=== PATIENT | female | born 1955 | race Caucasian/White ===

== ENCOUNTER 2017-11-18 17:39 | Inpatient (IN) | payer OTHER, MEDICAID ==
[~2017-11-18] VITALS: Ht 157.5 cm; Wt 64.9 kg
[2017-11-18 18:20] VITALS: BP 146/83
[2017-11-18 18:36] LABS: BASOPHILS % (AUTO) 0.5 % (0.0-2.0); EOSINOPHILS % (AUTO) 0.1 % (0.0-3.0); HEMATOCRIT 35.6 % (37.0-47.0); HEMOGLOBIN 12.6 G/DL (12.0-16.0); LYMPHOCYTES % (AUTO) 9.9 % (20.0-45.0); MEAN CORPUSCULAR VOLUME 77 FL (80-99); MONOCYTES % (AUTO) 5.2 % (1.0-10.0); NEUTROPHILS % (AUTO) 84.4 % (45.0-75.0); PLATELET COUNT 321 K/UL (150-450); RED BLOOD COUNT 4.62 M/UL (4.20-5.40); RED CELL DISTRIBUTION WIDTH 10.3 % (11.6-14.8); WHITE BLOOD COUNT 17.2 K/UL (4.8-10.8)
[2017-11-18 18:46] LABS: ANION GAP 12 mmol/L (5-15); BLOOD UREA NITROGEN 45 mg/dL (7-18); CARBON DIOXIDE 28 MMOL/L (21-32); CHLORIDE 93 MMOL/L (98-107); CREATININE 2.9 MG/DL (0.55-1.30); POTASSIUM 2.9 MMOL/L (3.5-5.1); SODIUM 133 MMOL/L (136-145)
[2017-11-18 18:50] LABS: ALANINE AMINOTRANSFERASE 21 U/L (12-78); ALBUMIN 4.1 G/DL (3.4-5.0); ALBUMIN/GLOBULIN RATIO 0.9 (1.0-2.7); ALKALINE PHOSPHATASE 249 U/L (46-116); ASPARTATE AMINO TRANSFERASE 28 U/L (15-37); BILIRUBIN,TOTAL 0.7 MG/DL (0.2-1.0)
[2017-11-18 18:52] LABS: CALCIUM 17.5 MG/DL (8.5-10.1)
[2017-11-18] MEDS ORDERED: COQ-1030 M1 PO (19:16)
[2017-11-18] MEDS ORDERED: MAGNESIUM500 MG PO (19:16)
[2017-11-18 19:30] VITALS: BP 178/83
[2017-11-18 20:03] LABS: APPEARANCE,URINE SLIGHTLY CLOUDY; BILIRUBIN, URINE NEGATIVE (NEGATIVE); COLOR,URINE PALE YELLOW; GLUCOSE, URINE (UA) NEGATIVE (NEGATIVE); KETONES,URINE NEGATIVE (NEGATIVE); LEUKOCYTE ESTERASE ,URINE 3+ (NEGATIVE); NITRITE,URINE NEGATIVE (NEGATIVE); PH,URINE 6.5 (4.5-8.0); PROTEIN,URINE 2+ (NEGATIVE); UROBILINOGEN,URINE NORMAL MG/DL (0.0-1.0)
[2017-11-18 20:30] VITALS: BP 151/90
[2017-11-18] MEDS ORDERED: Miralax 17gm pkt ORAL PRN (20:45)
[2017-11-18] MEDS: Heparin 5000 units/ml inj SUBQ SCH (21:00)
[2017-11-18] MEDS: Docusate 100mg cap ORAL SCH (21:00)
--- NOTE | 2017-11-18 21:04 | Emergency Room Report ---
History of Present Illness General Chief Complaint: Vomiting Source: Patient Present Illness HPI This patient was sent in by her primary care physician. She complains of intractable nausea and vomiting for the past 2 days. She states she can't even keep down water. She states that she also had right hip pain that her primary care physician is following her for. She has seen an orthopedist in undergone an MRI. She states that she is also has other pain in different parts of her body that have been ongoing for the past 3 months. She denies chest pain or shortness of breath. She does get intermittent headaches. She has migratory body pains at times. She denies fever or chills. She has no other complaints. Allergies: Coded Allergies: IODINE (Verified Allergy, Unknown, 11/18/17) Patient History Past Medical History: none, see triage record Social History: Denies: smoking, alcohol use, drug use Reviewed Nursing Documentation: PMH: Agreed; PSxH: Agreed Nursing Documentation-PMH Past Medical History: No Stated History Review of Systems All Other Systems: negative except mentioned in HPI Physical Exam Vital Signs Date Time Temp Pulse Resp B/P (MAP) Pulse Ox O2 Delivery O2 Flow Rate FiO2 11/18/17 17:45 98.2 95 18 146/83 95 Room Air 98.2 Sp02 EP Interpretation: reviewed, normal General Appearance: no apparent distress, alert, GCS 15, non-toxic Head: normocephalic, atraumatic Eyes: bilateral eye normal inspection, bilateral eye PERRL ENT: hearing grossly normal, normal pharynx, no angioedema, normal voice Neck: full range of motion, supple/symm/no masses Respiratory: chest non-tender, lungs clear, normal breath sounds, no respiratory distress, no retraction, no accessory muscle use, speaking full sentences Cardiovascular #1: regular rate, rhythm, no edema Gastrointestinal: normal bowel sounds, non tender, soft, non-distended, no guarding, no rebound Rectal: deferred Musculoskeletal: back normal, other - Pain w/ ROM of R.hip, unable to bear weight on R. leg secondary to pain. Neurologic: alert, oriented x3, responsive, motor strength/tone normal, sensory intact, speech normal Psychiatric: judgement/insight normal, memory normal, mood/affect normal, no suicidal/homicidal ideation Skin: normal color, no rash, warm/dry, well hydrated Medical Decision Making Diagnostic Impression: Primary Impression: Hypercalcemia Additional Impressions: Vomiting Renal failure ER Course This patient is found to have significant hypercalcemia. She also has acute renal failure. She has had intractable vomiting for the past couple days. Likely her vomiting is related to her hypercalcemia. She has an elevated magnesium and phosphorus. Unsure of the etiology of these laboratory findings that this would explain the patient's symptoms. Possibly she has hyperparathyroidism. Another consideration is a malignancy. Regardless, this patient will be admitted for further workup, evaluation, monitoring and treatment. Laboratory Tests Test 11/18/17 18:23 11/18/17 19:40 White Blood Count 17.2 K/UL (4.8-10.8) H Red Blood Count 4.62 M/UL (4.20-5.40) Hemoglobin 12.6 G/DL (12.0-16.0) Hematocrit 35.6 % (37.0-47.0) L Mean Corpuscular Volume 77 FL (80-99) L Mean Corpuscular Hemoglobin 27.3 PG (27.0-31.0) Mean Corpuscular Hemoglobin Concent 35.5 G/DL (32.0-36.0) Red Cell Distribution Width 10.3 % (11.6-14.8) L Platelet Count 321 K/UL (150-450) Mean Platelet Volume 6.7 FL (6.5-10.1) Neutrophils (%) (Auto) 84.4 % (45.0-75.0) H Lymphocytes (%) (Auto) 9.9 % (20.0-45.0) L Monocytes (%) (Auto) 5.2 % (1.0-10.0) Eosinophils (%) (Auto) 0.1 % (0.0-3.0) Basophils (%) (Auto) 0.5 % (0.0-2.0) Sodium Level 133 MMOL/L (136-145) L Potassium Level 2.9 MMOL/L (3.5-5.1) L Chloride Level 93 MMOL/L (98-107) L Carbon Dioxide Level 28 MMOL/L (21-32) Anion Gap 12 mmol/L (5-15) Blood Urea Nitrogen 45 mg/dL (7-18) H Creatinine 2.9 MG/DL (0.55-1.30) H Estimate Glomerular Filtration Rate 16.5 mL/min (>60) Glucose Level 108 MG/DL (74-106) H Calcium Level 17.5 MG/DL (8.5-10.1) *H Phosphorus Level 5.6 MG/DL (2.5-4.9) H Magnesium Level 2.6 MG/DL (1.8-2.4) H Total Bilirubin 0.7 MG/DL (0.2-1.0) Aspartate Amino Transferase (AST) 28 U/L (15-37) Alanine Aminotransferase (ALT) 21 U/L (12-78) Alkaline Phosphatase 249 U/L (46-116) H Total Protein 8.9 G/DL (6.4-8.2) H Albumin 4.1 G/DL (3.4-5.0) Globulin 4.8 g/dL Albumin/Globulin Ratio 0.9 (1.0-2.7) L Lipase 220 U/L (73-393) Urine Color Pale yellow Urine Appearance Slightly cloudy Urine pH 6.5 (4.5-8.0) Urine Specific [place] 1.015 (1.005-1.035) Urine Protein 2+ (NEGATIVE) H Urine Glucose (UA) Negative (NEGATIVE) Urine Ketones Negative (NEGATIVE) Urine Occult Blood 2+ (NEGATIVE) H Urine Nitrite Negative (NEGATIVE) Urine Bilirubin Negative (NEGATIVE) Urine Urobilinogen Normal MG/DL (0.0-1.0) Urine Leukocyte Esterase 3+ (NEGATIVE) H Urine RBC 10-15 /HPF (0 - 2) H Urine WBC 20-30 /HPF (0 - 2) H Urine Squamous Epithelial Cells Moderate /LPF (NONE/OCC) H Urine Bacteria Moderate /HPF (NONE) H EKG Diagnostic Results Rate: normal Rhythm: NSR ST Segments: no acute changes Rhythm Strip Diag. Results EP Interpretation: yes Rate: 80's Rhythm: NSR, no PVC's, no ectopy Last Vital Signs Date Time Temp Pulse Resp B/P (MAP) Pulse Ox O2 Delivery O2 Flow Rate FiO2 11/18/17 18:20 98.2 85 18 146/83 95 Room Air 98.2 Disposition: ADMITTED INPATIENT Condition: Serious Referrals: NOT CHOSEN IPA/,REFERRING (PCP) Karlie Mayes DO Nov 18, 2017 21:04
[2017-11-18 21:30] VITALS: BP 148/83
[2017-11-18 21:59] LABS: PHOSPHORUS 5.6 MG/DL (2.5-4.9)
[2017-11-18 22:00] VITALS: BP 178/93
[2017-11-18] MEDS ORDERED: PAMIDRONATE DISODIUM IVPB ONE (22:00)
[2017-11-18] MEDS ORDERED: SODIUM CHLORIDE IVPB ONE (22:00)
[2017-11-18] MEDS ORDERED: HydrALAZINE 10mg Tab ORAL PRN (23:30)
[2017-11-18] MEDS: cefTRIAXone 1 GM in D5W 110 ML IVPB SCH (23:57)
[2017-11-18] MEDS: TraZODone 50mg tab ORAL PRN (23:58)
[2017-11-19] VITALS: BP 167/88
[2017-11-19 04:00] VITALS: BP 163/93
[2017-11-19 06:04] LABS: ALANINE AMINOTRANSFERASE 18 U/L (12-78); ALBUMIN 3.1 G/DL (3.4-5.0); ALBUMIN/GLOBULIN RATIO 0.8 (1.0-2.7); ALKALINE PHOSPHATASE 193 U/L (46-116); ANION GAP 9 mmol/L (5-15); ASPARTATE AMINO TRANSFERASE 24 U/L (15-37); BILIRUBIN,TOTAL 0.4 MG/DL (0.2-1.0); BLOOD UREA NITROGEN 47 mg/dL (7-18); CARBON DIOXIDE 28 MMOL/L (21-32); CHLORIDE 99 MMOL/L (98-107); POTASSIUM 3.4 MMOL/L (3.5-5.1); SODIUM 136 MMOL/L (136-145)
[2017-11-19 06:07] LABS: CALCIUM 14.9 MG/DL (8.5-10.1)
[2017-11-19 08:00] VITALS: BP 154/84
[2017-11-19] MEDS ORDERED: Tubing Ominiflow Primary IV ONE (08:50)
[2017-11-19] MEDS: Docusate 100mg cap ORAL SCH ×2 (09:00→20:56)
[2017-11-19] MEDS: Heparin 5000 units/ml inj SUBQ SCH ×2 (09:00→21:00)
--- NOTE | 2017-11-19 10:48 | Consultation ---
History of Present Illness General Date patient seen: Nov 19, 2017 Chief Complaint: Vomiting Present Illness HPI 62 year old female presented to ED after seeing her PCP. States that over the past few days she has been unable to keep down liquids or tolerate diet because of intractable nausea and emesis. has had intermittent n/v for some time now but over past two days worse. furthermore has been noted to have hip and generalized bone pain for some time now. states her joints and bones "hurt". In ED labs demonstrated hypercalcemia. given symptoms and above findings she was admitted for work up, care, and management. surgery called to evaluate for intractable nausea, emesis, and pain. patient seen, chart reviewed, patient examined. currently states she feels a bit better. is unaware of history of hypercalcemia. has been doing research on the internet about it since. Allergies: Coded Allergies: IBUPROFEN (Verified Allergy, Unknown, 11/18/17) tongue swelling IODINE (Verified Allergy, Unknown, 11/18/17) NAPROXEN (Verified Allergy, Unknown, 11/18/17) tongue swelling Medication History Miscellaneous Medications Magnesium Oxide (Magnesium), 500 MG PO, (Reported) Ubidecarenone (Coq-10), Unknown Dose PO, (Reported) Patient History History Provided By: Patient, Medical Record, PMD Healthcare decision maker Resuscitation status Full Code Advanced Directive on File Past Medical/Surgical History Past Medical/Surgical History: (1) Intractable nausea and vomiting (2) Bone pain (3) Renal failure (4) Vomiting (5) Hypercalcemia Review of Systems All Other Systems: negative except mentioned in HPI Physical Exam General Appearance: no apparent distress, alert Lines, tubes and drains: peripheral HEENT: normocephalic, mucous membranes moist, PERRL Neck: normal inspection Respiratory/Chest: normal breath sounds, no respiratory distress, no accessory muscle use Cardiovascular/Chest: normal peripheral pulses, normal rate, regular rhythm Abdomen: normal bowel sounds, soft, no organomegaly, no mass Extremities: normal inspection Skin Exam: normal pigmentation, warm/dry Neurologic: alert, oriented x 3, responsive Last 24 Hour Vital Signs Date Time Temp Pulse Resp B/P (MAP) Pulse Ox O2 Delivery O2 Flow Rate FiO2 11/19/17 08:45 Room Air 11/19/17 08:00 98.1 89 18 154/84 (107) 93 98.1 11/19/17 04:00 98.3 79 19 163/93 (116) 94 98.3 11/19/17 00:12 Room Air 11/19/17 00:00 99.0 83 20 167/88 (114) 94 99.0 11/18/17 22:00 99.3 92 20 178/93 (121) 95 99.3 11/18/17 21:50 98.2 81 18 151/90 99 Room Air 98.2 11/18/17 21:30 98.4 78 18 148/83 97 Room Air 98.4 11/18/17 20:30 98.2 81 18 151/90 99 Room Air 98.2 11/18/17 19:30 98.2 82 18 178/83 96 Room Air 98.2 11/18/17 18:20 98.2 85 18 146/83 95 Room Air 98.2 11/18/17 17:45 98.2 95 18 146/83 95 Room Air 98.2 Intake and Output 11/18/17 11/19/17 19:00 07:00 Intake Total 2200 ml Balance 2200 ml Intake Oral 600 ml IV Total 1600 ml # Voids 5 Laboratory Tests Test 11/18/17 18:23 11/18/17 19:40 11/18/17 23:13 11/19/17 04:34 White Blood Count 17.2 K/UL (4.8-10.8) H Red Blood Count 4.62 M/UL (4.20-5.40) Hemoglobin 12.6 G/DL (12.0-16.0) Hematocrit 35.6 % (37.0-47.0) L Mean Corpuscular Volume 77 FL (80-99) L Mean Corpuscular Hemoglobin 27.3 PG (27.0-31.0) Mean Corpuscular Hemoglobin Concent 35.5 G/DL (32.0-36.0) Red Cell Distribution Width 10.3 % (11.6-14.8) L Platelet Count 321 K/UL (150-450) Mean Platelet Volume 6.7 FL (6.5-10.1) Neutrophils (%) (Auto) 84.4 % (45.0-75.0) H Lymphocytes (%) (Auto) 9.9 % (20.0-45.0) L Monocytes (%) (Auto) 5.2 % (1.0-10.0) Eosinophils (%) (Auto) 0.1 % (0.0-3.0) Basophils (%) (Auto) 0.5 % (0.0-2.0) Sodium Level 133 MMOL/L (136-145) L 136 MMOL/L (136-145) Potassium Level 2.9 MMOL/L (3.5-5.1) L 3.4 MMOL/L (3.5-5.1) L Chloride Level 93 MMOL/L (98-107) L 99 MMOL/L (98-107) Carbon Dioxide Level 28 MMOL/L (21-32) 28 MMOL/L (21-32) Anion Gap 12 mmol/L (5-15) 9 mmol/L (5-15) Blood Urea Nitrogen 45 mg/dL (7-18) H 47 mg/dL (7-18) H Creatinine 2.9 MG/DL (0.55-1.30) H 3.0 MG/DL (0.55-1.30) H Estimat Glomerular Filtration Rate 16.5 mL/min (>60) 15.8 mL/min (>60) Glucose Level 108 MG/DL (74-106) H 94 MG/DL (74-106) Calcium Level 17.5 MG/DL (8.5-10.1) *H 14.9 MG/DL (8.5-10.1) *H Phosphorus Level 5.6 MG/DL (2.5-4.9) H Magnesium Level 2.6 MG/DL (1.8-2.4) H 2.2 MG/DL (1.8-2.4) Total Bilirubin 0.7 MG/DL (0.2-1.0) 0.4 MG/DL (0.2-1.0) Aspartate Amino Transf (AST/SGOT) 28 U/L (15-37) 24 U/L (15-37) Alanine Aminotransferase (ALT/SGPT) 21 U/L (12-78) 18 U/L (12-78) Alkaline Phosphatase 249 U/L (46-116) H 193 U/L (46-116) H Total Protein 8.9 G/DL (6.4-8.2) H 6.9 G/DL (6.4-8.2) Albumin 4.1 G/DL (3.4-5.0) 3.1 G/DL (3.4-5.0) L Globulin 4.8 g/dL 3.8 g/dL Albumin/Globulin Ratio 0.9 (1.0-2.7) L Pending 0.8 (1.0-2.7) L Lipase 220 U/L (73-393) Urine Color Pale yellow Urine Appearance Slightly cloudy Urine pH 6.5 (4.5-8.0) Urine Specific [place] 1.015 (1.005-1.035) Urine Protein 2+ (NEGATIVE) H Urine Glucose (UA) Negative (NEGATIVE) Urine Ketones Negative (NEGATIVE) Urine Occult Blood 2+ (NEGATIVE) H Urine Nitrite Negative (NEGATIVE) Urine Bilirubin Negative (NEGATIVE) Urine Urobilinogen Normal MG/DL (0.0-1.0) Urine Leukocyte Esterase 3+ (NEGATIVE) H Urine RBC 10-15 /HPF (0 - 2) H Urine WBC 20-30 /HPF (0 - 2) H Urine Squamous Epithelial Cells Moderate /LPF (NONE/OCC) H Urine Bacteria Moderate /HPF (NONE) H Calcium (Send out) Pending Ionized Calcium (Measured) 1.84 mmol/L (1.10-1.35) *H 1.83 mmol/L (1.10-1.35) *H Total Protein (PEP) Pending Albumin (PEP) Pending Globulin (PEP) Pending [id number] Pending Onhrw-[id number] Pending Beta Globulins Pending Beta Gamma Globulin Pending PEP Abnormal Protein Bands Pending Protein Electrophoresis Interpret Pending Vitamin D 25-Hydroxy Pending 25-Hydroxy Vitamin D2 Pending 25-Hydroxy Vitamin D3 Pending Parathyroid Hormone (Intact) Pending Parathyroid Hormone Related Protein Pending Test 11/19/17 06:15 Urine Total Protein Pending Urine Albumin (%) Pending Urine [id number]-[id number] (%) Pending Urine Xarid-[id number] (%) Pending Urine Beta-Globulin (%) Pending Urine Gamma Globulin (%) Pending Ur Protein Electrophoresis M-Pardeep Pending Urine Protein Electrophoresis Intrp Pending Microbiology Date/Time Source Procedure Growth Status 11/18/17 19:40 Urine,Clean Catch Urine Culture - Preliminary Resulted Height (Feet): 5 Height (Inches): 2.00 Weight (Pounds): 143 Medications Current Medications Medications (Trade) Dose Ordered Sig/Juileta Route PRN Reason Start Time Stop Time Status Last Admin Dose Admin Acetaminophen (Tylenol) 650 mg Q4H PRN ORAL Mild Pain (Pain Scale 1-3) 11/18/17 20:45 12/18/17 20:44 11/18/17 22:17 Acetaminophen (Tylenol) 650 mg Q4H PRN ORAL T>100.5 11/18/17 20:45 12/18/17 20:44 Amlodipine Besylate (Norvasc) 10 mg DAILY ORAL 11/19/17 09:45 12/19/17 09:44 Bisacodyl (Dulcolax) 10 mg HSPRN PRN RECTAL Constipation 11/18/17 20:45 12/18/17 20:44 Calcitonin Sealy (Miacalcin) 1 sprays DAILY NASAL 11/20/17 09:00 12/20/17 08:59 Ceftriaxone Sodium 1 gm/ Dextrose 110 ml @ 220 mls/hr Q24H IVPB 11/18/17 21:00 11/25/17 20:59 11/18/17 23:57 Dextrose (Dextrose 50%) 25 ml STAT PRN IV Hypoglycemia 11/18/17 20:45 12/18/17 20:44 Dextrose (Dextrose 50%) 50 ml STAT PRN IV Hypoglycemia 11/18/17 20:45 12/18/17 20:44 Docusate Sodium (Colace) 100 mg EVERY 12 HOURS ORAL 11/18/17 21:00 12/18/17 20:59 Heparin Sodium (Porcine) (Heparin 5000 units/ml) 5,000 units EVERY 12 HOURS SUBQ 11/18/17 21:00 12/18/17 20:59 Hydralazine HCl (Apresoline) 10 mg BEDTIME PRN ORAL For High Blood Pressure 11/18/17 23:30 12/18/17 23:29 Ondansetron HCl (Zofran) 4 mg Q6H PRN IVP Nausea & Vomiting 11/18/17 20:45 12/18/17 20:44 Polyethylene Glycol (Miralax) 17 gm HSPRN PRN ORAL Constipation 11/18/17 20:45 12/18/17 20:44 Sodium Chloride 1,000 ml @ 150 mls/hr Q6H40M IV 11/19/17 09:30 12/19/17 09:29 Trazodone HCl (Desyrel) 50 mg BEDTIME PRN ORAL Insomnia 11/18/17 23:30 12/18/17 23:29 11/18/17 23:58 Assessment/Plan Problem List: (1) Intractable nausea and vomiting Assessment & Plan: likely related to hypercalcemia and unlikely obstructive will order KUB. may consider CT later okay for trial liquids ICD Codes: R11.2 - Nausea with vomiting, unspecified SNOMED: 808560211 Qualifiers: Qualified Codes: R11.2 - Nausea with vomiting, unspecified (2) Hypercalcemia Assessment & Plan: likely primary hypercalcemia. etiology work up -pending PTH levels and remaining labs -will follow as information available -fluids, Rx as written thank you for this consultation will follow with you ICD Codes: E83.52 - Hypercalcemia SNOMED: [id number] Status: stable Elfego Webb Nov 19, 2017 10:48
[2017-11-19 12:00] VITALS: BP 149/83
--- NOTE | 2017-11-19 14:21 | Diagnostic Imaging Report ---
Indication: Acute renal failure Technique: Grayscale and duplex images of the kidneys, retroperitoneum, and bladder were obtained. Comparison: none Findings: Right kidney measures 12.3 cm in length. Left kidney measures 11.4 cm in length. Both kidneys demonstrate normal echogenicity. No hydronephrosis. No focal abnormality. Normal inferior vena cava. Bladder is normal. Impression: negative.
--- NOTE | 2017-11-19 15:01 | History and Physical ---
History of Present Illness General Date patient seen: Nov 19, 2017 Reason for Hospitalization: Vomiting Present Illness HPI This is a 62 y/o female with a PMH of breast cancer s/p double mastectomy now in remission presented to [facility] for intractable nausea and vomiting for 2 days. Patient states that she has been having NBNB emesis for 2 days with associated fevers and chills. Denies abdominal pain, diarrhea or constipation. Does not recall eating anything out of the norm. Patient also reports R hip pain , where a recent MRI was done but results are unknown to them. Patient states that she has had progressively difficulty walking for the last 1 month and now completely unable to ambulate for the last 2 days. In the ED, patient was noted to be severely hypercalcemic at 17, hyperphosphatemia and hypermagnesemia. Patient's ionized Ca was also noted to be elevated and patient was given a dose of pamidronate. Patient was also noted to have a Cr of 3 and patient was started on IVF. Patient was noted to have a UTI and patient was given IV ceftriaxone. Patient was further admitted. At this time, patient denies any chest pain, sob. Continues to report nausea but no vomiting or abdominal pain today. Denies d/c, f/c. Continues to report inability to walk. Allergies: Coded Allergies: IBUPROFEN (Verified Allergy, Unknown, 11/18/17) tongue swelling IODINE (Verified Allergy, Unknown, 11/18/17) NAPROXEN (Verified Allergy, Unknown, 11/18/17) tongue swelling Medication History Miscellaneous Medications Magnesium Oxide (Magnesium), 500 MG PO, (Reported) Ubidecarenone (Coq-10), Unknown Dose PO, (Reported) Patient History History Provided By: Patient Healthcare decision maker Resuscitation status Full Code Advanced Directive on File Review of Systems All Other Systems: negative except mentioned in HPI Physical Exam General Appearance: no apparent distress, alert HEENT: normocephalic, atraumatic Neck: non-tender, normal alignment, supple Respiratory/Chest: chest wall non-tender, lungs clear, normal breath sounds Cardiovascular/Chest: normal peripheral pulses, normal rate, regular rhythm Abdomen: normal bowel sounds, non tender, soft Skin Exam: normal pigmentation, warm/dry Neurologic: foreign correspondent II-XII grossly normal, alert, oriented x 3, motor weakness Last 24 Hour Vital Signs Date Time Temp Pulse Resp B/P (MAP) Pulse Ox O2 Delivery O2 Flow Rate FiO2 11/19/17 12:00 98.4 90 18 149/83 (105) 95 98.4 11/19/17 11:05 90 149/83 11/19/17 08:45 Room Air 11/19/17 08:00 98.1 89 18 154/84 (107) 93 98.1 11/19/17 04:00 98.3 79 19 163/93 (116) 94 98.3 11/19/17 00:12 Room Air 11/19/17 00:00 99.0 83 20 167/88 (114) 94 99.0 11/18/17 22:00 99.3 92 20 178/93 (121) 95 99.3 11/18/17 21:50 98.2 81 18 151/90 99 Room Air 98.2 11/18/17 21:30 98.4 78 18 148/83 97 Room Air 98.4 11/18/17 20:30 98.2 81 18 151/90 99 Room Air 98.2 11/18/17 19:30 98.2 82 18 178/83 96 Room Air 98.2 11/18/17 18:20 98.2 85 18 146/83 95 Room Air 98.2 11/18/17 17:45 98.2 95 18 146/83 95 Room Air 98.2 Intake and Output 11/18/17 11/19/17 19:00 07:00 Intake Total 2200 ml Balance 2200 ml Intake Oral 600 ml IV Total 1600 ml # Voids 5 Laboratory Tests Test 11/18/17 18:23 11/18/17 19:40 11/18/17 23:13 11/19/17 04:34 White Blood Count 17.2 K/UL (4.8-10.8) H Red Blood Count 4.62 M/UL (4.20-5.40) Hemoglobin 12.6 G/DL (12.0-16.0) Hematocrit 35.6 % (37.0-47.0) L Mean Corpuscular Volume 77 FL (80-99) L Mean Corpuscular Hemoglobin 27.3 PG (27.0-31.0) Mean Corpuscular Hemoglobin Concent 35.5 G/DL (32.0-36.0) Red Cell Distribution Width 10.3 % (11.6-14.8) L Platelet Count 321 K/UL (150-450) Mean Platelet Volume 6.7 FL (6.5-10.1) Neutrophils (%) (Auto) 84.4 % (45.0-75.0) H Lymphocytes (%) (Auto) 9.9 % (20.0-45.0) L Monocytes (%) (Auto) 5.2 % (1.0-10.0) Eosinophils (%) (Auto) 0.1 % (0.0-3.0) Basophils (%) (Auto) 0.5 % (0.0-2.0) Sodium Level 133 MMOL/L (136-145) L 136 MMOL/L (136-145) Potassium Level 2.9 MMOL/L (3.5-5.1) L 3.4 MMOL/L (3.5-5.1) L Chloride Level 93 MMOL/L (98-107) L 99 MMOL/L (98-107) Carbon Dioxide Level 28 MMOL/L (21-32) 28 MMOL/L (21-32) Anion Gap 12 mmol/L (5-15) 9 mmol/L (5-15) Blood Urea Nitrogen 45 mg/dL (7-18) H 47 mg/dL (7-18) H Creatinine 2.9 MG/DL (0.55-1.30) H 3.0 MG/DL (0.55-1.30) H Estimat Glomerular Filtration Rate 16.5 mL/min (>60) 15.8 mL/min (>60) Glucose Level 108 MG/DL (74-106) H 94 MG/DL (74-106) Calcium Level 17.5 MG/DL (8.5-10.1) *H 14.9 MG/DL (8.5-10.1) *H Phosphorus Level 5.6 MG/DL (2.5-4.9) H Magnesium Level 2.6 MG/DL (1.8-2.4) H 2.2 MG/DL (1.8-2.4) Total Bilirubin 0.7 MG/DL (0.2-1.0) 0.4 MG/DL (0.2-1.0) Aspartate Amino Transf (AST/SGOT) 28 U/L (15-37) 24 U/L (15-37) Alanine Aminotransferase (ALT/SGPT) 21 U/L (12-78) 18 U/L (12-78) Alkaline Phosphatase 249 U/L (46-116) H 193 U/L (46-116) H Total Protein 8.9 G/DL (6.4-8.2) H 6.9 G/DL (6.4-8.2) Albumin 4.1 G/DL (3.4-5.0) 3.1 G/DL (3.4-5.0) L Globulin 4.8 g/dL 3.8 g/dL Albumin/Globulin Ratio 0.9 (1.0-2.7) L Pending 0.8 (1.0-2.7) L Lipase 220 U/L (73-393) Urine Color Pale yellow Urine Appearance Slightly cloudy Urine pH 6.5 (4.5-8.0) Urine Specific [place] 1.015 (1.005-1.035) Urine Protein 2+ (NEGATIVE) H Urine Glucose (UA) Negative (NEGATIVE) Urine Ketones Negative (NEGATIVE) Urine Occult Blood 2+ (NEGATIVE) H Urine Nitrite Negative (NEGATIVE) Urine Bilirubin Negative (NEGATIVE) Urine Urobilinogen Normal MG/DL (0.0-1.0) Urine Leukocyte Esterase 3+ (NEGATIVE) H Urine RBC 10-15 /HPF (0 - 2) H Urine WBC 20-30 /HPF (0 - 2) H Urine Squamous Epithelial Cells Moderate /LPF (NONE/OCC) H Urine Bacteria Moderate /HPF (NONE) H Calcium (Send out) Pending Ionized Calcium (Measured) 1.84 mmol/L (1.10-1.35) *H 1.83 mmol/L (1.10-1.35) *H Total Protein (PEP) Pending Albumin (PEP) Pending Globulin (PEP) Pending Cviap-[id number] Pending Foqcx-4-Buwgokgua Pending Beta Globulins Pending Beta Gamma Globulin Pending PEP Abnormal Protein Bands Pending Protein Electrophoresis Interpret Pending Vitamin D 25-Hydroxy Pending 25-Hydroxy Vitamin D2 Pending 25-Hydroxy Vitamin D3 Pending Parathyroid Hormone (Intact) Pending Parathyroid Hormone Related Protein Pending Test 11/19/17 06:15 Urine Total Protein Pending Urine Albumin (%) Pending Urine Sjubu-7-Nmkhlscvm (%) Pending Urine Ijczu-7-Xrozyrnwm (%) Pending Urine Beta-Globulin (%) Pending Urine Gamma Globulin (%) Pending Ur Protein Electrophoresis M-Pardeep Pending Urine Protein Electrophoresis Intrp Pending Microbiology Date/Time Source Procedure Growth Status 11/18/17 19:40 Urine,Clean Catch Urine Culture - Preliminary Resulted Height (Feet): 5 Height (Inches): 2.00 Weight (Pounds): 143 Medications Current Medications Medications (Trade) Dose Ordered Sig/Julieta Route PRN Reason Start Time Stop Time Status Last Admin Dose Admin Acetaminophen (Tylenol) 650 mg Q4H PRN ORAL Mild Pain (Pain Scale 1-3) 11/18/17 20:45 12/18/17 20:44 11/19/17 11:18 Acetaminophen (Tylenol) 650 mg Q4H PRN ORAL T>100.5 11/18/17 20:45 12/18/17 20:44 Amlodipine Besylate (Norvasc) 10 mg DAILY ORAL 11/19/17 09:45 12/19/17 09:44 11/19/17 11:05 Bisacodyl (Dulcolax) 10 mg HSPRN PRN RECTAL Constipation 11/18/17 20:45 12/18/17 20:44 Calcitonin [place] (Miacalcin) 1 sprays DAILY NASAL 11/20/17 09:00 12/20/17 08:59 Ceftriaxone Sodium 1 gm/ Dextrose 110 ml @ 220 mls/hr Q24H IVPB 11/18/17 21:00 11/25/17 20:59 11/18/17 23:57 Dextrose (Dextrose 50%) 25 ml STAT PRN IV Hypoglycemia 11/18/17 20:45 12/18/17 20:44 Dextrose (Dextrose 50%) 50 ml STAT PRN IV Hypoglycemia 11/18/17 20:45 12/18/17 20:44 Docusate Sodium (Colace) 100 mg EVERY 12 HOURS ORAL 11/18/17 21:00 12/18/17 20:59 Heparin Sodium (Porcine) (Heparin 5000 units/ml) 5,000 units EVERY 12 HOURS SUBQ 11/18/17 21:00 12/18/17 20:59 Hydralazine HCl (Apresoline) 10 mg BEDTIME PRN ORAL For High Blood Pressure 11/18/17 23:30 12/18/17 23:29 Ondansetron HCl (Zofran) 4 mg Q6H PRN IVP Nausea & Vomiting 11/18/17 20:45 12/18/17 20:44 Polyethylene Glycol (Miralax) 17 gm HSPRN PRN ORAL Constipation 11/18/17 20:45 12/18/17 20:44 Sodium Chloride 1,000 ml @ 150 mls/hr Q6H40M IV 11/19/17 09:30 12/19/17 09:29 11/19/17 11:04 Trazodone HCl (Desyrel) 50 mg BEDTIME PRN ORAL Insomnia 11/18/17 23:30 12/18/17 23:29 11/18/17 23:58 Assessment/Plan Problem List: (1) Hyperphosphatemia ICD Codes: E83.39 - Other disorders of phosphorus metabolism SNOMED: 43378222 (2) Leukocytosis ICD Codes: D72.829 - Elevated white blood cell count, unspecified SNOMED: 659444450, 790687831 (3) UTI (urinary tract infection) ICD Codes: N39.0 - Urinary tract infection, site not specified SNOMED: 10968610 (4) Renal failure ICD Codes: N19 - Unspecified kidney failure SNOMED: 34080762 (5) Hypercalcemia ICD Codes: E83.52 - Hypercalcemia SNOMED: 46641123 (6) Bone pain ICD Codes: M89.8X9 - Other specified disorders of bone, unspecified site SNOMED: 22000542 (7) Intractable nausea and vomiting ICD Codes: R11.2 - Nausea with vomiting, unspecified SNOMED: 648824210 Qualifiers: Qualified Codes: R11.2 - Nausea with vomiting, unspecified (8) h/o breast cancer s/p double mastectomy, in remission (9) Generalized weakness ICD Codes: R53.1 - Weakness SNOMED: 76449801 Status: stable, progressing Assessment/Plan Assessment: 62 y/o female with a h/o breast cancer s/p mastectomy now in remission presented with 2 days of intractable n/v and generalized weakness. Found to be hypercalcemic and hyperphosphatemic. Will workup for primary vs. secondary hypercalcemia. - Admit to inpatient - Endocrinology, nephrology, and general surgery consulted - Oncology, Dr. Amador, will also see to r/o malignancy - IVF - Trend Cr - F/u renal U/S - F/u PTH and other lab markers - Trend ionized Ca and phosphorus - s/p pamidronate - Continue calcitonin - Trend WBC - Continue IV ceftriaxone - F/u urine cx - F/u CXR - Check uric acid - PT/OT eval - Pain control and supportive care - F/u MRI of right hip from outside hospital D/w PCP: Dr. Reese [phone] DVT Prophylaxis: SCD, HSQ Code Status: Full Hospital Classification Declaration: Based on this initial evaluation, and depending on the patient's clinical course, I anticipate that this patient will require hospitalization for 3-4 days for intractable n/v, hypercalcemic workup and close respiratory/hemodynamic monitoring. Disposition: Once the patient is stable to leave the hospital, I anticipate the patient will likely be discharged to the following environment: home with HH vs SNF I spent 71 minutes on this patient's case, and 38 minutes were dedicated to counseling and/or care coordination. Discussed with patient/family, nursing staff, SW/CM, and all consultants involved regarding clinical status, treatment course, and disposition planning. Time of note may not reflect time of encounter. Beckie Tavera NP Nov 19, 2017 15:01
[2017-11-19 16:00] VITALS: BP 163/87
--- NOTE | 2017-11-19 16:21 | Diagnostic Imaging Report ---
Indication: Abdominal pain Technique: Supine view of the abdomen Comparison: none Findings: Surgical clips are seen in the right upper pelvis and bilateral inguinal regions. Bowel gas pattern is unremarkable. No unusual masses or calcifications Impression: No acute process
--- NOTE | 2017-11-19 16:28 | Diagnostic Imaging Report ---
Indication: Chest pain Technique: One view of the chest Comparison: none Findings: 12 mm well-circumscribed rounded nodular opacity is seen projected in the left upper lung. There is slight blunting of the left costophrenic sulcus. There is some atelectasis or scarring left midlung. The lungs and pleural spaces are otherwise clear. Surgical clips are seen in the right axilla is old healed fracture deformity of the right sixth rib Impression: 12 mm left upper lobe nodule. Further evaluation with CT recommended if clinically indicated. Patient's nurse Rosaura notified at the time on interpretation Small left pleural effusion Left perihilar atelectasis or scarring Other findings as noted
[2017-11-19] MEDS ORDERED: Gastrograffin 30ml ORAL PRN (17:45)
--- NOTE | 2017-11-19 18:15 | Consultation ---
DATE OF CONSULTATION: 11/19/2017 CONSULTING PHYSICIAN: Dm Adler MD REFERRING PHYSICIAN: Faiza Washington M.D. REASON FOR CONSULTATION: 1. Acute kidney injury. 2. Hypokalemia. 3. Hypercalcemia. HISTORY OF PRESENT ILLNESS: The patient is a pleasant 62-year-old female who was sent by her primary care physician for intractable nausea and vomiting for the past 2 to 3 days. She is unable to keep any food or water down. The patient does admit to taking 5 vitamin D pills and calcium pills every day along with other multivitamins when it was noted that she had extremely elevated calcium level of 18 and a creatinine of 3. The patient had not been feeling well. No diarrhea. She was having intermittent headaches. Denies any renal dysfunction or hypercalcemic episodes in the past. ALLERGIES: Iodine PAST MEDICAL HISTORY: Denies. SOCIAL HISTORY: No tobacco, alcohol, or illicit drug use. FAMILY HISTORY: Noncontributory. LABORATORY AND DIAGNOSTIC DATA: Labs dated 11/19/2017, potassium 3.4, sodium 136, BUN 47, creatinine 3, calcium 14.9, ionized calcium 1.83, magnesium 2.2, albumin 3.1, total protein 6.9. White cell count 17.2, hemoglobin 12.6, and platelet count 321. PHYSICAL EXAMINATION: VITAL SIGNS: Blood pressure 163/93, respiratory rate 19, pulse 79, temperature 98.3, 99% oxygen on room air. GENERAL: The patient awake, alert, not otherwise in distress. HEENT: Extraocular muscles intact. No lymphadenopathy noted. CARDIOVASCULAR: S1, S2. No rubs or gallops. PULMONARY: Clear to auscultation bilaterally. No rales, rhonchi, or wheezes. ABDOMINAL: Nondistended and nontender. EXTREMITIES: No edema noted. ASSESSMENT AND PLAN: 1. Acute kidney injury at this time, most likely secondary to multifactorial, acute tubular necrosis from volume depletion and severe hypercalcemia. Concern is for the possibility of myeloma kidney as there is a total protein to albumin dissociation and extremely high levels of calcium. At this time, we will rule out other secondary etiologies. SPEP and UPEP have been ordered in addition to PTH and vitamin D levels. Renal ultrasound to rule out the possibility of any obstructive uropathy. Avoid any nephrotoxins. 2. Severe hypercalcemia. Secondary etiologies are being evaluated. SPEP, UPEP, PTH, and vitamin D levels have all been ordered. If etiology not entirely clear, the patient may require renal biopsy. Continue aggressive hydration. For severe hypercalcemia, the patient has already been given IV pamidronate and calcitonin initiated with increased IV hydration. Avoid any further vitamin D or calcium supplementation. 3. Hypertension. We will adjust medications as deemed appropriate. Avoid hydrochlorothiazide. 4. Nausea and vomiting, with elevated white count. Defer management to primary care physician. Let me take this opportunity to thank Dr. Washington for allowing me to assist in the care of this patient. Dm Adler MD DR: ALEXIS JOB#: [id number] CC:
[2017-11-19 20:00] VITALS: BP 159/90
[2017-11-19] MEDS: cefTRIAXone 1 GM in D5W 110 ML IVPB SCH (20:58)
[2017-11-19] MEDS: TraZODone 50mg tab ORAL PRN (23:37)
[2017-11-20] VITALS: BP 153/77
--- NOTE | 2017-11-20 01:45 | Consultation ---
DATE OF CONSULTATION: 11/19/2017 ENDOCRINOLOGY CONSULTATION CONSULTING PHYSICIAN: Mark Gonzalez M.D. REFERRING PHYSICIAN: Faiza Washington M.D. REASON FOR CONSULTATION: Hypercalcemia. HISTORY OF PRESENT ILLNESS: The patient is a 62-year-old female with history of breast cancer, status post double mastectomy in remission, who was referred to [place] emergency room from Dr. Reese' office. The patient went for her first visit to Dr. Reese, was having nausea and vomiting, she was very weak, and she was directed to the emergency department when she was noted to have a calcium of 17 and a creatinine of 3. Started on IV fluids, was given a dose of pamidronate and admitted to the Med/Surg for observation and treatment. She did not have any acute EKG changes. PAST MEDICAL HISTORY: Breast cancer as above. PAST SURGICAL HISTORY: History of mastectomy with reconstruction. ALLERGIES: To ibuprofen, iodine, and Naproxen. SOCIAL HISTORY: No smoking, alcohol, or drug use. REVIEW OF SYSTEMS: As per history of present illness. PHYSICAL EXAMINATION: GENERAL: The patient is awake and alert. VITAL SIGNS: Blood pressure is 130/80, pulse 70, temperature 98, and respiratory rate of 18. HEENT: Pupils are reactive to light and accommodation. Sclerae anicteric. NECK: No JVD. No thyromegaly. No bruit. LUNGS: Clear. HEART: Regular rate and rhythm. ABDOMEN: Positive bowel sounds. Soft. EXTREMITIES: No clubbing, cyanosis, or edema. LABORATORY VALUES: Sodium 133, potassium 3.9, chloride 92, bicarb 28, BUN 49, creatinine 2.9, and glucose of 108. Calcium 17.5, phosphorous 5.6, and magnesium 2.6. Alkaline phosphatase 249. Total protein 8.9. PTH and vitamin D metabolites are pending. Lipase is 220. DIAGNOSES: 1. Hypercalcemia, acute, severe. 2. Acute kidney injury. DISCUSSION: I suspect the elevated calcium is due to vitamin D toxicosis. The patient was taking 20,000 units of vitamin D every day for many months. Her serum calcium as well as her phosphorus is elevated, which will increased the risk of vitamin D toxicosis. A PTH level and vitamin D metabolites are pending and once we have those results, we will be able to make the diagnosis. IV hydration should continue. She has already received a dose of Aredia. I will follow her during the hospital stay for management of hypercalcemia. Thank you, Dr. Washington, for the courtesy of this consultation. Mark Gonzalez M.D. DR: ARMAAN JOB#: [id number] CC: JENNIFER
[2017-11-20 04:00] VITALS: BP 145/79
--- NOTE | 2017-11-20 07:11 | General Progress Note ---
Assessment/Plan Problem List: (1) Hypercalcemia ICD Codes: E83.52 - Hypercalcemia SNOMED: 97452589 (2) Intractable nausea and vomiting ICD Codes: R11.2 - Nausea with vomiting, unspecified SNOMED: 141946996 Qualifiers: Qualified Codes: R11.2 - Nausea with vomiting, unspecified (3) Bone pain ICD Codes: M89.8X9 - Other specified disorders of bone, unspecified site SNOMED: 89239692 (4) Renal failure ICD Codes: N19 - Unspecified kidney failure SNOMED: 67032465 (5) h/o breast cancer s/p double mastectomy, in remission (6) Generalized weakness ICD Codes: R53.1 - Weakness SNOMED: 78372459 Assessment/Plan symptomatic hypercalcemia improving s/p Aredia continue IVF PTH and Vit D level pending Subjective Allergies: Coded Allergies: CODEINE (Verified Allergy, Unknown, 11/19/17) IBUPROFEN (Verified Allergy, Unknown, 11/18/17) tongue swelling IODINE (Verified Allergy, Unknown, 11/19/17) Patient reports that she does not have allergy to Iodine. NAPROXEN (Verified Allergy, Unknown, 11/18/17) tongue swelling All Systems: reviewed and negative except above Subjective events noted Objective Last 24 Hour Vital Signs Date Time Temp Pulse Resp B/P (MAP) Pulse Ox O2 Delivery O2 Flow Rate FiO2 11/20/17 04:00 98.9 98 19 145/79 (101) 93 98.9 11/20/17 00:00 100.0 102 19 153/77 (102) 92 100.0 11/19/17 21:56 99.5 11/19/17 21:00 Room Air 11/19/17 20:57 100.6 11/19/17 20:00 100.6 104 19 159/90 (113) 93 100.6 11/19/17 16:00 98.7 95 18 163/87 (112) 94 98.7 11/19/17 12:00 98.4 90 18 149/83 (105) 95 98.4 11/19/17 11:05 90 149/83 11/19/17 08:45 Room Air 11/19/17 08:00 98.1 89 18 154/84 (107) 93 98.1 Intake and Output 11/19/17 11/20/17 19:00 07:00 Intake Total 1850 ml 1200 ml Balance 1850 ml 1200 ml Intake Oral 800 ml IV Total 1050 ml 1200 ml # Voids 4 3 Height (Feet): 5 Height (Inches): 2.00 Weight (Pounds): 143 General Appearance: no apparent distress Neck: normal alignment Cardiovascular: normal rate Respiratory/Chest: lungs clear Abdomen: normal bowel sounds Pelvis: normal external exam Objective Current Medications Medications (Trade) Dose Ordered Sig/Julieta Route PRN Reason Start Time Stop Time Status Last Admin Dose Admin Acetaminophen (Tylenol) 650 mg Q4H PRN ORAL Mild Pain (Pain Scale 1-3) 11/18/17 20:45 12/18/17 20:44 11/19/17 18:30 Acetaminophen (Tylenol) 650 mg Q4H PRN ORAL T>100.5 11/18/17 20:45 12/18/17 20:44 11/19/17 20:57 Amlodipine Besylate (Norvasc) 10 mg DAILY ORAL 11/19/17 09:45 12/19/17 09:44 11/19/17 11:05 Barium Sulfate (Readi-Cat 2) 450 ml NOW PRN ORAL Radiology Procedure 11/19/17 17:45 11/21/17 17:34 Bisacodyl (Dulcolax) 10 mg HSPRN PRN RECTAL Constipation 11/18/17 20:45 12/18/17 20:44 Calcitonin [place] (Miacalcin) 1 sprays DAILY NASAL 11/20/17 09:00 12/20/17 08:59 Ceftriaxone Sodium 1 gm/ Dextrose 110 ml @ 220 mls/hr Q24H IVPB 11/18/17 21:00 11/25/17 20:59 11/19/17 20:58 Dextrose (Dextrose 50%) 25 ml STAT PRN IV Hypoglycemia 11/18/17 20:45 12/18/17 20:44 Dextrose (Dextrose 50%) 50 ml STAT PRN IV Hypoglycemia 11/18/17 20:45 12/18/17 20:44 Diatrizoate [place]/ Diatrizoate Sod (Gastrografin) 30 ml NOW PRN ORAL Radiology Procedure 11/19/17 17:45 11/21/17 17:44 Docusate Sodium (Colace) 100 mg EVERY 12 HOURS ORAL 11/18/17 21:00 12/18/17 20:59 11/19/17 20:56 Heparin Sodium (Porcine) (Heparin 5000 units/ml) 5,000 units EVERY 12 HOURS SUBQ 11/18/17 21:00 12/18/17 20:59 11/19/17 21:00 Hydralazine HCl (Apresoline) 10 mg BEDTIME PRN ORAL For High Blood Pressure 11/18/17 23:30 12/18/17 23:29 Ondansetron HCl (Zofran) 4 mg Q6H PRN IVP Nausea & Vomiting 11/18/17 20:45 12/18/17 20:44 11/19/17 17:16 Polyethylene Glycol (Miralax) 17 gm HSPRN PRN ORAL Constipation 11/18/17 20:45 12/18/17 20:44 Sodium Chloride 1,000 ml @ 150 mls/hr Q6H40M IV 11/19/17 09:30 12/19/17 09:29 11/20/17 05:13 Trazodone HCl (Desyrel) 50 mg BEDTIME PRN ORAL Insomnia 11/18/17 23:30 12/18/17 23:29 11/19/17 23:37 Mark Gonzalez MD Nov 20, 2017 07:11
[2017-11-20 07:55] LABS: HEMATOCRIT 28.5 % (37.0-47.0); MEAN CORPUSCULAR VOLUME 78 FL (80-99); PLATELET COUNT 233 K/UL (150-450); RED BLOOD COUNT 3.64 M/UL (4.20-5.40); RED CELL DISTRIBUTION WIDTH 10.3 % (11.6-14.8)
[2017-11-20 07:58] LABS: ANION GAP 9 mmol/L (5-15); BLOOD UREA NITROGEN 37 mg/dL (7-18); CALCIUM 12.7 MG/DL (8.5-10.1); CARBON DIOXIDE 25 MMOL/L (21-32); CHLORIDE 103 MMOL/L (98-107); CREATININE 2.8 MG/DL (0.55-1.30); SODIUM 137 MMOL/L (136-145)
[2017-11-20 08:00] VITALS: BP 164/85
[2017-11-20] MEDS: Docusate 100mg cap ORAL SCH ×2 (09:00→21:54)
[2017-11-20] MEDS: Heparin 5000 units/ml inj SUBQ SCH ×2 (09:29→21:56)
--- NOTE | 2017-11-20 09:29 | Nephrology Progress Note ---
Assessment/Plan Assessment/Plan 1. Hypercalcemia - likley due to Vit D toxcity, levels pending - other secondary etiologies pending (SPEP/UPEP/CT Chest due to pulm nodules /SCC?/PTH etc) - on IVF's, Calcitonin and s/p Pamidronate - calcium level improving 2. MARTIN- due to severe hypercalcemia - Cr down to 2.8 - Renal US neg - treatment for hypercalcemia as per #1 3. Breast cancer, status post double mastectomy - CXR pulm nodule. Defer to PCP Subjective Date patient seen: Nov 20, 2017 Time patient seen: 09:23 ROS Limited/Unobtainable: No Allergies: Coded Allergies: CODEINE (Verified Allergy, Unknown, 11/19/17) IBUPROFEN (Verified Allergy, Unknown, 11/18/17) tongue swelling IODINE (Verified Allergy, Unknown, 11/19/17) Patient reports that she does not have allergy to Iodine. NAPROXEN (Verified Allergy, Unknown, 11/18/17) tongue swelling All Systems: reviewed and negative except above Subjective Patient resting. Feeling otherwise well Objective Last 24 Hour Vital Signs Date Time Temp Pulse Resp B/P (MAP) Pulse Ox O2 Delivery O2 Flow Rate FiO2 11/20/17 04:00 98.9 98 19 145/79 (101) 93 98.9 11/20/17 00:00 100.0 102 19 153/77 (102) 92 100.0 11/19/17 21:56 99.5 11/19/17 21:00 Room Air 11/19/17 20:57 100.6 11/19/17 20:00 100.6 104 19 159/90 (113) 93 100.6 11/19/17 16:00 98.7 95 18 163/87 (112) 94 98.7 11/19/17 12:00 98.4 90 18 149/83 (105) 95 98.4 11/19/17 11:05 90 149/83 Intake and Output 11/19/17 11/20/17 19:00 07:00 Intake Total 1850 ml 1350 ml Balance 1850 ml 1350 ml Intake Oral 800 ml IV Total 1050 ml 1350 ml # Voids 4 3 Laboratory Tests 11/20/17 07:25: White Blood Count 8.0, Red Blood Count 3.64L, Hemoglobin 10.0L, Hematocrit 28.5L , Mean Corpuscular Volume 78L, Mean Corpuscular Hemoglobin 27.4, Mean Corpuscular Hemoglobin Concent 35.0, Red Cell Distribution Width 10.3L, Platelet Count 233, Mean Platelet Volume 6.5, Neutrophils (%) (Auto) , Lymphocytes (%) (Auto) , Monocytes (%) (Auto) , Eosinophils (%) (Auto) , Basophils (%) (Auto) , Neutrophils % (Manual) [Pending], Lymphocytes % (Manual) [Pending], Platelet Estimate [Pending], Platelet Morphology [Pending], Sodium Level 137, Potassium Level 3.0L, Chloride Level 103, Carbon Dioxide Level 25, Anion Gap 9, Blood Urea Nitrogen 37H, Creatinine 2.8H, Estimat Glomerular Filtration Rate 17.1, Glucose Level 91, Calcium Level 12.7H, Ionized Calcium ( Measured) 1.58*H Height (Feet): 5 Height (Inches): 2.00 Weight (Pounds): 143 General Appearance: WD/WN, no apparent distress EENT: PERRL/EOMI, normal ENT inspection Neck: non-tender, normal alignment Cardiovascular: normal peripheral pulses, normal rate, regular rhythm Respiratory/Chest: chest wall non-tender, lungs clear, normal breath sounds Abdomen: normal bowel sounds, non tender Edema: no edema noted Arm (L), no edema noted Arm (R), no edema noted Leg (L), no edema noted Leg (R), no edema noted Pedal (L), no edema noted Pedal (R), no edema noted Generalized Dm Adler M.D. Nov 20, 2017 09:29
[2017-11-20] MEDS ORDERED: LORazepam 0.5mg tab ORAL PRN (11:00)
--- NOTE | 2017-11-20 11:36 | General Surgery Progress Note ---
General Surgery-Progress Note Subjective Additional Comments no acute events. feels slightly better. has headache Objective Last 24 Hour Vital Signs Date Time Temp Pulse Resp B/P (MAP) Pulse Ox O2 Delivery O2 Flow Rate FiO2 11/20/17 09:28 95 164/85 11/20/17 08:45 Room Air 11/20/17 08:00 99.8 95 20 164/85 (111) 90 99.8 11/20/17 04:00 98.9 98 19 145/79 (101) 93 98.9 11/20/17 00:00 100.0 102 19 153/77 (102) 92 100.0 11/19/17 21:56 99.5 11/19/17 21:00 Room Air 11/19/17 20:57 100.6 11/19/17 20:00 100.6 104 19 159/90 (113) 93 100.6 11/19/17 16:00 98.7 95 18 163/87 (112) 94 98.7 11/19/17 12:00 98.4 90 18 149/83 (105) 95 98.4 I&O Intake and Output 11/19/17 11/20/17 19:00 07:00 Intake Total 1850 ml 1350 ml Balance 1850 ml 1350 ml Intake Oral 800 ml IV Total 1050 ml 1350 ml # Voids 4 3 Drains: none Cardiovascular: RSR Respiratory: clear Abdomen: soft, flat, non-tender, present bowel sounds Extremities: no cyanosis Laboratory Tests Test 11/20/17 07:25 White Blood Count 8.0 K/UL (4.8-10.8) Red Blood Count 3.64 M/UL (4.20-5.40) L Hemoglobin 10.0 G/DL (12.0-16.0) L Hematocrit 28.5 % (37.0-47.0) L Mean Corpuscular Volume 78 FL (80-99) L Mean Corpuscular Hemoglobin 27.4 PG (27.0-31.0) Mean Corpuscular Hemoglobin Concent 35.0 G/DL (32.0-36.0) Red Cell Distribution Width 10.3 % (11.6-14.8) L Platelet Count 233 K/UL (150-450) Mean Platelet Volume 6.5 FL (6.5-10.1) Neutrophils (%) (Auto) % (45.0-75.0) Lymphocytes (%) (Auto) % (20.0-45.0) Monocytes (%) (Auto) % (1.0-10.0) Eosinophils (%) (Auto) % (0.0-3.0) Basophils (%) (Auto) % (0.0-2.0) Differential Total Cells Counted 100 Neutrophils % (Manual) 91 % (45-75) H Lymphocytes % (Manual) 3 % (20-45) L Monocytes % (Manual) 5 % (1-10) Eosinophils % (Manual) 1 % (0-3) Basophils % (Manual) 0 % (0-2) Band Neutrophils 0 % (0-8) Platelet Estimate Adequate Platelet Morphology Normal Sodium Level 137 MMOL/L (136-145) Potassium Level 3.0 MMOL/L (3.5-5.1) L Chloride Level 103 MMOL/L (98-107) Carbon Dioxide Level 25 MMOL/L (21-32) Anion Gap 9 mmol/L (5-15) Blood Urea Nitrogen 37 mg/dL (7-18) H Creatinine 2.8 MG/DL (0.55-1.30) H Estimat Glomerular Filtration Rate 17.1 mL/min (>60) Glucose Level 91 MG/DL (74-106) Calcium Level 12.7 MG/DL (8.5-10.1) H Ionized Calcium (Measured) 1.58 mmol/L (1.10-1.35) *H Plan Problems: (1) Intractable nausea and vomiting Assessment & Plan: likely related to hypercalcemia and unlikely obstructive KUB reviewed. okay okay for diet (2) Hypercalcemia Assessment & Plan: likely primary hypercalcemia. etiology work up -pending PTH levels and remaining labs -will follow as information available -fluids, Rx as written --CXR with 12mm left lung nodule. will need CT scan to further evaluate. currently labs improving and patient improving. MARTIN improving. can perform a non-contrast CT but limited. better to wait until renal function improved then do contrast CT to appropriately evaluate lung nodule thank you for this consultation will follow with you Elfego Webb Nov 20, 2017 11:36
[2017-11-20 12:00] VITALS: BP 162/78
[2017-11-20] MEDS ORDERED: HydrALAZINE 25mg tab ORAL PRN (14:00)
[2017-11-20 16:00] VITALS: BP 160/92
[2017-11-20] MEDS: ALPRAZolam 0.5mg tab ORAL PRN (16:51)
--- NOTE | 2017-11-20 17:35 | Cardiology Report ---
APPROVED REPORT EKG Measurement Heart [id number] Normal sinus rhythm Moderate voltage criteria for LVH, may be normal variant Junctional ST depression, probably normal Borderline ECG
--- NOTE | 2017-11-20 17:45 | General Progress Note ---
Assessment/Plan Problem List: (1) Hyperphosphatemia ICD Codes: E83.39 - Other disorders of phosphorus metabolism SNOMED: 07192634 (2) Leukocytosis ICD Codes: D72.829 - Elevated white blood cell count, unspecified SNOMED: 521596203, 594440173 (3) UTI (urinary tract infection) ICD Codes: N39.0 - Urinary tract infection, site not specified SNOMED: 38122076 (4) Renal failure ICD Codes: N19 - Unspecified kidney failure SNOMED: 72322458 (5) Hypercalcemia ICD Codes: E83.52 - Hypercalcemia SNOMED: 91889104 (6) Bone pain ICD Codes: M89.8X9 - Other specified disorders of bone, unspecified site SNOMED: 82504782 (7) Intractable nausea and vomiting ICD Codes: R11.2 - Nausea with vomiting, unspecified SNOMED: 987990778 Qualifiers: Qualified Codes: R11.2 - Nausea with vomiting, unspecified (8) h/o breast cancer s/p double mastectomy, in remission (9) Generalized weakness ICD Codes: R53.1 - Weakness SNOMED: 53126185 (10) Lung nodule ICD Codes: R91.1 - Solitary pulmonary nodule SNOMED: 998579195 Status: stable, progressing Assessment/Plan Assessment: 62 y/o female with a h/o breast cancer s/p mastectomy now in remission presented with 2 days of intractable n/v and generalized weakness. Found to be hypercalcemic and hyperphosphatemic. Will workup for primary vs. secondary hypercalcemia. - Endocrinology, nephrology, and general surgery consulted - Oncology, Dr. Amador, will also see to r/o malignancy - Pulmonology consulted - CT a/p/chest w/o contrast - NM bone scan whole body - elevated alk phos, check GGT to r/o bone disorder - f/u serum light chains, spep, upep, CEA, CA 15-3, CA 27-29, MIGUEL test - IVF - Trend Cr 3.0 --> 2.8 - F/u renal U/S -- normal - F/u PTH and other lab markers - Trend ionized Ca and phosphorus - s/p pamidronate - Continue calcitonin - Trend WBC - Continue IV ceftriaxone - F/u urine cx - F/u CXR -- 12 mm left lung nodule - Check uric acid - PT/OT eval - Pain control and supportive care - F/u MRI of right hip from outside hospital D/w PCP: Dr. Reese [phone] DVT Prophylaxis: SCD, HSQ Code Status: Full Hospital Classification Declaration: Based on this initial evaluation, and depending on the patient's clinical course, I anticipate that this patient will require hospitalization for 3-4 days for intractable n/v, hypercalcemic workup and close respiratory/hemodynamic monitoring. Disposition: Once the patient is stable to leave the hospital, I anticipate the patient will likely be discharged to the following environment: home with HH vs SNF I spent 41 minutes on this patient's case, and 28 minutes were dedicated to counseling and/or care coordination. Discussed with patient/family, nursing staff, SW/CM, and all consultants involved regarding clinical status, treatment course, and disposition planning. Time of note may not reflect time of encounter. Subjective Date patient seen: Nov 20, 2017 Allergies: Coded Allergies: CODEINE (Verified Allergy, Unknown, 11/19/17) IBUPROFEN (Verified Allergy, Unknown, 11/18/17) tongue swelling IODINE (Verified Allergy, Unknown, 11/19/17) Patient reports that she does not have allergy to Iodine. NAPROXEN (Verified Allergy, Unknown, 11/18/17) tongue swelling Subjective - no acute events overnight - CXR showing 12mm nodule in the left upper lobe - reports cough and mild sob. denies hemoptysis, chest pain. - feeling better today. able to get up and walk - calcium downtrending . Objective Last 24 Hour Vital Signs Date Time Temp Pulse Resp B/P (MAP) Pulse Ox O2 Delivery O2 Flow Rate FiO2 11/20/17 12:00 99.9 95 18 162/78 (106) 91 99.9 11/20/17 09:28 95 164/85 11/20/17 08:45 Room Air 11/20/17 08:00 99.8 95 20 164/85 (111) 90 99.8 11/20/17 04:00 98.9 98 19 145/79 (101) 93 98.9 11/20/17 00:00 100.0 102 19 153/77 (102) 92 100.0 11/19/17 21:56 99.5 11/19/17 21:00 Room Air 11/19/17 20:57 100.6 11/19/17 20:00 100.6 104 19 159/90 (113) 93 100.6 Intake and Output 11/19/17 11/20/17 19:00 07:00 Intake Total 1850 ml 1350 ml Balance 1850 ml 1350 ml Intake Oral 800 ml IV Total 1050 ml 1350 ml # Voids 4 3 Laboratory Tests 11/20/17 07:25: White Blood Count 8.0, Red Blood Count 3.64L, Hemoglobin 10.0L, Hematocrit 28.5L , Mean Corpuscular Volume 78L, Mean Corpuscular Hemoglobin 27.4, Mean Corpuscular Hemoglobin Concent 35.0, Red Cell Distribution Width 10.3L, Platelet Count 233, Mean Platelet Volume 6.5, Neutrophils (%) (Auto) , Lymphocytes (%) (Auto) , Monocytes (%) (Auto) , Eosinophils (%) (Auto) , Basophils (%) (Auto) , Differential Total Cells Counted 100, Neutrophils % ( Manual) 91H, Lymphocytes % (Manual) 3L, Monocytes % (Manual) 5, Eosinophils % ( Manual) 1, Basophils % (Manual) 0, Band Neutrophils 0, Platelet Estimate Adequate, Platelet Morphology Normal, Sodium Level 137, Potassium Level 3.0L, Chloride Level 103, Carbon Dioxide Level 25, Anion Gap 9, Blood Urea Nitrogen 37H, Creatinine 2.8H, Estimat Glomerular Filtration Rate 17.1, Glucose Level 91 , Calcium Level 12.7H, Ionized Calcium (Measured) 1.58*H Height (Feet): 5 Height (Inches): 2.00 Weight (Pounds): 143 General Appearance: no apparent distress, alert EENT: PERRL/EOMI, normal ENT inspection Neck: non-tender, normal alignment, supple Cardiovascular: normal peripheral pulses, normal rate, regular rhythm Respiratory/Chest: chest wall non-tender, lungs clear, normal breath sounds Abdomen: normal bowel sounds, non tender, soft Extremities: normal range of motion, non-tender 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
[2017-11-20 20:00] VITALS: BP 151/81
[2017-11-20] MEDS: cefTRIAXone 1 GM in D5W 110 ML IVPB SCH (21:54)
--- NOTE | 2017-11-20 22:22 | Pulmonology Progress Note ---
Assessment/Plan Assessment/Plan Pulmonary Consultation 62 y/o female with a PMH of breast cancer s/p double mastectomy now in remission presented to [facility] ER for intractable nausea and vomiting for 2 days. Noted to have 12mm Left upper lobe nodule on CXR Patient states that she has been having NBNB emesis for 2 days with associated fevers and chills. Denies abdominal pain, diarrhea or constipation. Does not recall eating anything out of the norm. Patient also reports R hip pain, where a recent MRI was done but results are unknown to them. Patient states that she has had progressively difficulty walking for the last 1 month and now completely unable to ambulate for the last 2 days. In the ED, patient was noted to be severely hypercalcemic at 17, hyperphosphatemia and hypermagnesemia. Patient's ionized Ca was also noted to be elevated and patient was given a dose of pamidronate. Patient was also noted to have a Cr of 3 and patient was started on IVF. Patient was noted to have a UTI and patient was given IV ceftriaxone. Patient was further admitted. At this time, patient denies any chest pain, sob. Continues to report nausea but no vomiting or abdominal pain today. Denies d/c, f/c. Continues to report inability to walk. Allergies: Coded Allergies: IBUPROFEN (Verified Allergy, Unknown, 11/18/17) tongue swelling IODINE (Verified Allergy, Unknown, 11/18/17) NAPROXEN (Verified Allergy, Unknown, 11/18/17) tongue swelling Medication History Miscellaneous Medications Magnesium Oxide (Magnesium), 500 MG PO, (Reported) Ubidecarenone (Coq-10), Unknown Dose PO, (Reported) Patient History History Provided By: Patient Healthcare decision maker Resuscitation status Full Code Advanced Directive on File Review of Systems All Other Systems: negative except mentioned in HPI Physical Exam General Appearance: no apparent distress, alert HEENT: normocephalic, atraumatic Neck: non-tender, normal alignment, supple Respiratory/Chest: chest wall non-tender, lungs clear, normal breath sounds Cardiovascular/Chest: normal peripheral pulses, normal rate, regular rhythm Abdomen: normal bowel sounds, non tender, soft Skin Exam: normal pigmentation, warm/dry Neurologic: fountain supervisor II-XII grossly normal, alert, oriented x 3, motor weakness Last 24 Hour Vital Signs Date Time Temp Pulse Resp B/P (MAP) Pulse Ox O2 Delivery O2 Flow Rate FiO2 7/18/18 12:00 98.4 90 18 149/83 (105) 95 98.4 11/19/17 11:05 90 149/83 11/19/17 08:45 Room Air 11/19/17 08:00 98.1 89 18 154/84 (107) 93 98.1 11/19/17 04:00 98.3 79 19 163/93 (116) 94 98.3 11/19/17 00:12 Room Air 11/19/17 00:00 99.0 83 20 167/88 (114) 94 99.0 11/18/17 22:00 99.3 92 20 178/93 (121) 95 99.3 11/18/17 21:50 98.2 81 18 151/90 99 Room Air 98.2 11/18/17 21:30 98.4 78 18 148/83 97 Room Air 98.4 11/18/17 20:30 98.2 81 18 151/90 99 Room Air 98.2 11/18/17 19:30 98.2 82 18 178/83 96 Room Air 98.2 11/18/17 18:20 98.2 85 18 146/83 95 Room Air 98.2 11/18/17 17:45 98.2 95 18 146/83 95 Room Air 98.2 Intake and Output 11/18/17 11/19/17 19:00 07:00 Intake Total 2200 ml Balance 2200 ml Intake Oral 600 ml IV Total 1600 ml # Voids 5 Laboratory Tests CXR 11/18/2017 Findings: 12 mm well-circumscribed rounded nodular opacity is seen projected in the left upper lung. There is slight blunting of the left costophrenic sulcus. There is some atelectasis or scarring left midlung. The lungs and pleural spaces are otherwise clear. Surgical clips are seen in the right axilla is old healed fracture deformity of the right sixth rib Impression: 12 mm left upper lobe nodule. Further evaluation with CT recommended if clinically indicated. Patient's nurse Rosaura notified at the time on interpretation Small left pleural effusion Left perihilar atelectasis or scarring Test 11/18/17 18:23 11/18/17 19:40 11/18/17 23:13 11/19/17 04:34 White Blood Count 17.2 K/UL (4.8-10.8) H Red Blood Count 4.62 M/UL (4.20-5.40) Hemoglobin 12.6 G/DL (12.0-16.0) Hematocrit 35.6 % (37.0-47.0) L Mean Corpuscular Volume 77 FL (80-99) L Mean Corpuscular Hemoglobin 27.3 PG (27.0-31.0) Mean Corpuscular Hemoglobin Concent 35.5 G/DL (32.0-36.0) Red Cell Distribution Width 10.3 % (11.6-14.8) L Platelet Count 321 K/UL (150-450) Mean Platelet Volume 6.7 FL (6.5-10.1) Neutrophils (%) (Auto) 84.4 % (45.0-75.0) H Lymphocytes (%) (Auto) 9.9 % (20.0-45.0) L Monocytes (%) (Auto) 5.2 % (1.0-10.0) Eosinophils (%) (Auto) 0.1 % (0.0-3.0) Basophils (%) (Auto) 0.5 % (0.0-2.0) Sodium Level 133 MMOL/L (136-145) L 136 MMOL/L (136-145) Potassium Level 2.9 MMOL/L (3.5-5.1) L 3.4 MMOL/L (3.5-5.1) L Chloride Level 93 MMOL/L (98-107) L 99 MMOL/L (98-107) Carbon Dioxide Level 28 MMOL/L (21-32) 28 MMOL/L (21-32) Anion Gap 12 mmol/L (5-15) 9 mmol/L (5-15) Blood Urea Nitrogen 45 mg/dL (7-18) H 47 mg/dL (7-18) H Creatinine 2.9 MG/DL (0.55-1.30) H 3.0 MG/DL (0.55-1.30) H Estimat Glomerular Filtration Rate 16.5 mL/min (>60) 15.8 mL/min (>60) Glucose Level 108 MG/DL (74-106) H 94 MG/DL (74-106) Calcium Level 17.5 MG/DL (8.5-10.1) *H 14.9 MG/DL (8.5-10.1) *H Phosphorus Level 5.6 MG/DL (2.5-4.9) H Magnesium Level 2.6 MG/DL (1.8-2.4) H 2.2 MG/DL (1.8-2.4) Total Bilirubin 0.7 MG/DL (0.2-1.0) 0.4 MG/DL (0.2-1.0) Aspartate Amino Transf (AST/SGOT) 28 U/L (15-37) 24 U/L (15-37) Alanine Aminotransferase (ALT/SGPT) 21 U/L (12-78) 18 U/L (12-78) Alkaline Phosphatase 249 U/L (46-116) H 193 U/L (46-116) H Total Protein 8.9 G/DL (6.4-8.2) H 6.9 G/DL (6.4-8.2) Albumin 4.1 G/DL (3.4-5.0) 3.1 G/DL (3.4-5.0) L Globulin 4.8 g/dL 3.8 g/dL Albumin/Globulin Ratio 0.9 (1.0-2.7) L Pending 0.8 (1.0-2.7) L Lipase 220 U/L (73-393) Urine Color Pale yellow Urine Appearance Slightly cloudy Urine pH 6.5 (4.5-8.0) Urine Specific [place] 1.015 (1.005-1.035) Urine Protein 2+ (NEGATIVE) H Urine Glucose (UA) Negative (NEGATIVE) Urine Ketones Negative (NEGATIVE) Urine Occult Blood 2+ (NEGATIVE) H Urine Nitrite Negative (NEGATIVE) Urine Bilirubin Negative (NEGATIVE) Urine Urobilinogen Normal MG/DL (0.0-1.0) Urine Leukocyte Esterase 3+ (NEGATIVE) H Urine RBC 10-15 /HPF (0 - 2) H Urine WBC 20-30 /HPF (0 - 2) H Urine Squamous Epithelial Cells Moderate /LPF (NONE/OCC) H Urine Bacteria Moderate /HPF (NONE) H Calcium (Send out) Pending Ionized Calcium (Measured) 1.84 mmol/L (1.10-1.35) *H 1.83 mmol/L (1.10-1.35) *H Total Protein (PEP) Pending Albumin (PEP) Pending Globulin (PEP) Pending Wpqyi-1-Uotwumbcx Pending Bexxi-6-Qjamycdyy Pending Beta Globulins Pending Beta Gamma Globulin Pending PEP Abnormal Protein Bands Pending Protein Electrophoresis Interpret Pending Vitamin D 25-Hydroxy Pending 25-Hydroxy Vitamin D2 Pending 25-Hydroxy Vitamin D3 Pending Parathyroid Hormone (Intact) Pending Parathyroid Hormone Related Protein Pending Test 11/19/17 06:15 Urine Total Protein Pending Urine Albumin (%) Pending Urine Hlzjh-0-Mgwdddpjv (%) Pending Urine Vjden-2-Llaullpvd (%) Pending Urine Beta-Globulin (%) Pending Urine Gamma Globulin (%) Pending Ur Protein Electrophoresis M-Pardeep Pending Urine Protein Electrophoresis Intrp Pending Microbiology Date/Time Source Procedure Growth Status 11/18/17 19:40 Urine,Clean Catch Urine Culture - Preliminary Resulted Height (Feet): 5 Height (Inches): 2.00 Weight (Pounds): 143 Medications Current Medications Medications (Trade) Dose Ordered Sig/Julieta Route PRN Reason Start Time Stop Time Status Last Admin Dose Admin Acetaminophen (Tylenol) 650 mg Q4H PRN ORAL Mild Pain (Pain Scale 1-3) 11/18/17 20:45 12/18/17 20:44 11/19/17 11:18 Acetaminophen (Tylenol) 650 mg Q4H PRN ORAL T>100.5 11/18/17 20:45 12/18/17 20:44 Amlodipine Besylate (Norvasc) 10 mg DAILY ORAL 11/19/17 09:45 12/19/17 09:44 11/19/17 11:05 Bisacodyl (Dulcolax) 10 mg HSPRN PRN RECTAL Constipation 11/18/17 20:45 12/18/17 20:44 Calcitonin Hope (Miacalcin) 1 sprays DAILY NASAL 11/20/17 09:00 12/20/17 08:59 Ceftriaxone Sodium 1 gm/ Dextrose 110 ml @ 220 mls/hr Q24H IVPB 11/18/17 21:00 11/25/17 20:59 11/18/17 23:57 Dextrose (Dextrose 50%) 25 ml STAT PRN IV Hypoglycemia 11/18/17 20:45 12/18/17 20:44 Dextrose (Dextrose 50%) 50 ml STAT PRN IV Hypoglycemia 11/18/17 20:45 12/18/17 20:44 Docusate Sodium (Colace) 100 mg EVERY 12 HOURS ORAL 11/18/17 21:00 12/18/17 20:59 Heparin Sodium (Porcine) (Heparin 5000 units/ml) 5,000 units EVERY 12 HOURS SUBQ 11/18/17 21:00 12/18/17 20:59 Hydralazine HCl (Apresoline) 10 mg BEDTIME PRN ORAL For High Blood Pressure 11/18/17 23:30 12/18/17 23:29 Ondansetron HCl (Zofran) 4 mg Q6H PRN IVP Nausea & Vomiting 11/18/17 20:45 12/18/17 20:44 Polyethylene Glycol (Miralax) 17 gm HSPRN PRN ORAL Constipation 11/18/17 20:45 12/18/17 20:44 Sodium Chloride 1,000 ml @ 150 mls/hr Q6H40M IV 11/19/17 09:30 12/19/17 09:29 11/19/17 11:04 Trazodone HCl (Desyrel) 50 mg BEDTIME PRN ORAL Insomnia 11/18/17 23:30 12/18/17 23:29 11/18/17 23:58 Assessment/Plan Problem List: (1) Hyperphosphatemia ICD Codes: E83.39 - Other disorders of phosphorus metabolism SNOMED: 31071104 (2) Leukocytosis ICD Codes: D72.829 - Elevated white blood cell count, unspecified SNOMED: 471006956, 384819911 (3) UTI (urinary tract infection) ICD Codes: N39.0 - Urinary tract infection, site not specified SNOMED: 11610896 (4) Renal failure ICD Codes: N19 - Unspecified kidney failure SNOMED: 93915215 (5) Hypercalcemia ICD Codes: E83.52 - Hypercalcemia SNOMED: 14915759 (6) Bone pain ICD Codes: M89.8X9 - Other specified disorders of bone, unspecified site SNOMED: 91048996 (7) Intractable nausea and vomiting ICD Codes: R11.2 - Nausea with vomiting, unspecified SNOMED: 647093770 Qualifiers: Qualified Codes: R11.2 - Nausea with vomiting, unspecified (8) h/o breast cancer s/p double mastectomy, in remission (9) Generalized weakness ICD Codes: R53.1 - Weakness SNOMED: 30766254 Status: stable, progressing Assessment/Plan Assessment: 62 y/o female with a h/o breast cancer s/p mastectomy now in remission presented with 2 days of intractable n/v and generalized weakness. Found to be hypercalcemic and hyperphosphatemic. Will workup for primary vs. secondary hypercalcemia. - CT Chest - IVF - Trend Cr - F/u renal U/S - F/u PTH and other lab markers - Trend ionized Ca and phosphorus - s/p pamidronate - Continue calcitonin - Trend WBC - Continue IV ceftriaxone - F/u urine cx - F/u CXR - Check uric acid - PT/OT eval - Pain control and supportive care DVT Prophylaxis: SCD, HSQ Code Status: Full Subjective ROS Limited/Unobtainable: No Constitutional: Reports: other HEENT: Repors: no symptoms Respiratory: Reports: no symptoms, dyspnea on exertion Cardiovascular: Reports: no symptoms Gastrointestinal/Abdominal: Reports: nausea, other Genitourinary: Reports: no symptoms Neurologic: Reports: no symptoms Psychiatric: Reports: no symptoms Skin: Reports: no symptoms Endocrine: Reports: no symptoms Hematologic: Reports: no symptoms Musculoskeletal: Reports: no symptoms Allergies: Coded Allergies: CODEINE (Verified Allergy, Unknown, 11/19/17) IBUPROFEN (Verified Allergy, Unknown, 11/18/17) tongue swelling IODINE (Verified Allergy, Unknown, 11/19/17) Patient reports that she does not have allergy to Iodine. NAPROXEN (Verified Allergy, Unknown, 11/18/17) tongue swelling Objective Last 24 Hour Vital Signs Date Time Temp Pulse Resp B/P (MAP) Pulse Ox O2 Delivery O2 Flow Rate FiO2 11/20/17 16:00 98.4 93 18 160/92 (114) 93 98.4 11/20/17 12:00 99.9 95 18 162/78 (106) 91 99.9 11/20/17 09:28 95 164/85 11/20/17 08:45 Room Air 11/20/17 08:00 99.8 95 20 164/85 (111) 90 99.8 11/20/17 04:00 98.9 98 19 145/79 (101) 93 98.9 11/20/17 00:00 100.0 102 19 153/77 (102) 92 100.0 Intake and Output 11/19/17 11/20/17 19:00 07:00 Intake Total 1850 ml 1350 ml Balance 1850 ml 1350 ml Intake Oral 800 ml IV Total 1050 ml 1350 ml # Voids 4 3 Microbiology Date/Time Source Procedure Growth Status 11/18/17 19:40 Urine,Clean Catch Urine Culture - Preliminary Resulted Laboratory Tests 11/20/17 07:25: White Blood Count 8.0, Red Blood Count 3.64L, Hemoglobin 10.0L, Hematocrit 28.5L , Mean Corpuscular Volume 78L, Mean Corpuscular Hemoglobin 27.4, Mean Corpuscular Hemoglobin Concent 35.0, Red Cell Distribution Width 10.3L, Platelet Count 233, Mean Platelet Volume 6.5, Neutrophils (%) (Auto) , Lymphocytes (%) (Auto) , Monocytes (%) (Auto) , Eosinophils (%) (Auto) , Basophils (%) (Auto) , Differential Total Cells Counted 100, Neutrophils % ( Manual) 91H, Lymphocytes % (Manual) 3L, Monocytes % (Manual) 5, Eosinophils % ( Manual) 1, Basophils % (Manual) 0, Band Neutrophils 0, Platelet Estimate Adequate, Platelet Morphology Normal, Sodium Level 137, Potassium Level 3.0L, Chloride Level 103, Carbon Dioxide Level 25, Anion Gap 9, Blood Urea Nitrogen 37H, Creatinine 2.8H, Estimat Glomerular Filtration Rate 17.1, Glucose Level 91 , Calcium Level 12.7H, Ionized Calcium (Measured) 1.58*H Current Medications Medications (Trade) Dose Ordered Sig/Julieta Route PRN Reason Start Time Stop Time Status Last Admin Dose Admin Acetaminophen (Tylenol) 650 mg Q4H PRN ORAL T>100.5 11/18/17 20:45 12/18/17 20:44 11/19/17 20:57 Acetaminophen (Tylenol) 650 mg Q4H PRN ORAL Mild Pain (Pain Scale 1-3) 11/18/17 20:45 12/18/17 20:44 11/20/17 18:33 Alprazolam (Xanax) 0.5 mg BIDPRN PRN ORAL ANXIETY 11/20/17 14:45 11/27/17 14:44 11/20/17 16:51 Amlodipine Besylate (Norvasc) 10 mg DAILY ORAL 11/19/17 09:45 12/19/17 09:44 11/20/17 09:28 Barium Sulfate (Readi-Cat 2) 450 ml NOW PRN ORAL Radiology Procedure 11/19/17 17:45 11/21/17 17:34 Bisacodyl (Dulcolax) 10 mg HSPRN PRN RECTAL Constipation 11/18/17 20:45 12/18/17 20:44 Calcitonin Hope (Miacalcin) 1 sprays DAILY NASAL 11/20/17 09:00 12/20/17 08:59 11/20/17 10:03 Ceftriaxone Sodium 1 gm/ Dextrose 110 ml @ 220 mls/hr Q24H IVPB 11/18/17 21:00 11/25/17 20:59 11/20/17 21:54 Dextrose (Dextrose 50%) 25 ml STAT PRN IV Hypoglycemia 11/18/17 20:45 12/18/17 20:44 Dextrose (Dextrose 50%) 50 ml STAT PRN IV Hypoglycemia 11/18/17 20:45 12/18/17 20:44 Diatrizoate Meglum/ Diatrizoate Sod (Gastrografin) 30 ml NOW PRN ORAL Radiology Procedure 11/19/17 17:45 11/21/17 17:44 Docusate Sodium (Colace) 100 mg EVERY 12 HOURS ORAL 11/18/17 21:00 12/18/17 20:59 11/20/17 21:54 Heparin Sodium (Porcine) (Heparin 5000 units/ml) 5,000 units EVERY 12 HOURS SUBQ 11/18/17 21:00 12/18/17 20:59 11/20/17 21:56 Hydralazine HCl (Apresoline) 25 mg Q6H PRN ORAL SBP > 160 11/20/17 14:00 12/20/17 13:59 Ondansetron HCl (Zofran) 4 mg Q6H PRN IVP Nausea & Vomiting 11/18/17 20:45 12/18/17 20:44 11/19/17 17:16 Polyethylene Glycol (Miralax) 17 gm HSPRN PRN ORAL Constipation 11/18/17 20:45 12/18/17 20:44 Potassium Chloride (K-Dur) 40 meq DAILY ORAL 11/20/17 09:30 12/20/17 09:29 11/20/17 09:54 Sodium Chloride 1,000 ml @ 150 mls/hr Q6H40M IV 11/19/17 09:30 12/19/17 09:29 11/20/17 18:34 Trazodone HCl (Desyrel) 50 mg BEDTIME PRN ORAL Insomnia 11/18/17 23:30 12/18/17 23:29 11/19/17 23:37 Nick Jackson MD Nov 20, 2017 22:22
[2017-11-21] VITALS: BP 140/70
[2017-11-21 04:00] VITALS: BP 140/74
[2017-11-21 07:06] LABS: BASOPHILS % (AUTO) 0.2 % (0.0-2.0); EOSINOPHILS % (AUTO) 3.1 % (0.0-3.0); HEMATOCRIT 28.1 % (37.0-47.0); LYMPHOCYTES % (AUTO) 11.9 % (20.0-45.0); MEAN CORPUSCULAR VOLUME 78 FL (80-99); MONOCYTES % (AUTO) 5.8 % (1.0-10.0); NEUTROPHILS % (AUTO) 79.1 % (45.0-75.0); PLATELET COUNT 239 K/UL (150-450); RED BLOOD COUNT 3.62 M/UL (4.20-5.40); RED CELL DISTRIBUTION WIDTH 10.1 % (11.6-14.8); WHITE BLOOD COUNT 8.1 K/UL (4.8-10.8)
[2017-11-21 07:39] LABS: ALANINE AMINOTRANSFERASE 28 U/L (12-78); ALBUMIN 2.9 G/DL (3.4-5.0); ALBUMIN/GLOBULIN RATIO 0.7 (1.0-2.7); ALKALINE PHOSPHATASE 212 U/L (46-116); ANION GAP 11 mmol/L (5-15); ASPARTATE AMINO TRANSFERASE 38 U/L (15-37); BILIRUBIN,TOTAL 0.3 MG/DL (0.2-1.0); BLOOD UREA NITROGEN 30 mg/dL (7-18); CARBON DIOXIDE 24 MMOL/L (21-32); CHLORIDE 104 MMOL/L (98-107); CREATININE 2.2 MG/DL (0.55-1.30); POTASSIUM 2.8 MMOL/L (3.5-5.1); SODIUM 140 MMOL/L (136-145)
[2017-11-21 08:00] VITALS: BP 136/77
--- NOTE | 2017-11-21 09:34 | Diagnostic Imaging Report ---
Indication: Noted vomiting, abdominal pain, history of cancer Technique: Spiral acquisitions obtained through the abdomen and pelvis. No oral contrast utilized, per emergency room physician request No IV contrast utilized, per referring physician request.. Multiplanar reconstructions were generated. Total dose length product 722.52 mGycm. CTDIvol(s) 13.88 mGy. Dose reduction achieved using automated exposure control Comparison: None Findings: Normal appendix. There are scattered colonic diverticula. No evidence of diverticulitis. There is free pelvic fluid present. No small bowel distention. No free intraperitoneal air. The distal esophagus, stomach, duodenum are unremarkable. The lack of IV contrast limits assessment of the solid organs. The liver is unremarkable. The gallbladder is not visualized, presumed surgically absent. No biliary ductal dilatation. The pancreas, spleen, adrenals, kidneys are all unremarkable. No retroperitoneal or mesenteric mass or adenopathy. No pelvic mass or adenopathy. Surgical clips are seen in the bilateral inguinal regions. There is evidence of some surgical scarring in the anterior lower pelvic wall. The bones demonstrate innumerable osteolytic lesions. Included lung bases demonstrate posterior dependent atelectatic changes, trace bilateral pleural effusions, and linear atelectasis or scarring at both lung bases, left greater than right Impression: Extensive bony osteolytic lesions, consistent with diffuse metastatic disease. Correlate with clinical history as regards location of primary Bilateral trace pleural effusions. Posterior dependent atelectatic changes. Bilateral basilar pulmonary atelectasis or scarring Evidence of prior bilateral inguinal region surgery Small amount of free pelvic fluid. Etiology indeterminate but not physiologic in a postmenopausal patient. Colonic diverticulosis. No evidence of diverticulitis This agrees with the preliminary interpretation provided overnight by [facility] teleradiology service. The CT scanner at [facility] is accredited by the [employer] and the scans are performed using protocols designed to limit radiation exposure to as low as reasonably achievable to attain images of sufficient resolution adequate for diagnostic evaluation.
[2017-11-21] MEDS: Heparin 5000 units/ml inj SUBQ SCH ×2 (09:36→20:46)
[2017-11-21 09:45] LABS: % IRON SATURATION 20 % (15-50); IRON 37 ug/dL (50-175); TOTAL IRON BINDING CAPACITY 185 ug/dL (250-450)
[2017-11-21 09:57] LABS: FERRITIN 812 NG/ML (8-388)
[2017-11-21 10:31] LABS: PHOSPHORUS 2.4 MG/DL (2.5-4.9)
[2017-11-21] MEDS: ALPRAZolam 0.5mg tab ORAL PRN ×2 (11:20→17:52)
[2017-11-21 12:00] VITALS: BP 140/79
[2017-11-21] MEDS ORDERED: HydrALAZINE 25mg tab ORAL PRN (12:00)
[2017-11-21] MEDS: Docusate 100mg cap ORAL SCH ×2 (12:38→17:23)
--- NOTE | 2017-11-21 13:22 | Nephrology Progress Note ---
Assessment/Plan Problem List: (1) Renal failure Assessment: acute (2) Hypercalcemia Assessment: likely Vit D toxicity (3) Intractable nausea and vomiting (4) Lung nodule Assessment: r/o mets (5) h/o breast cancer s/p double mastectomy, in remission Assessment . Hypercalcemia - likley due to Vit D toxcity, levels pending - other secondary etiologies pending (SPEP/UPEP/CT Chest due to pulm nodules /SCC?/PTH etc) - on IVF's, Calcitonin and s/p Pamidronate - calcium level improving 2. MARTIN- due to severe hypercalcemia - Cr down to 2.8 - Renal US neg - treatment for hypercalcemia as per #1 3. Breast cancer, status post double mastectomy - CXR pulm nodule. Defer to PCP Plan 30 mg Aredia Hydrate correct electrolytes waiting PTH and Vit D level monitor Ca Alb Phos Mag Lytes Subjective ROS Limited/Unobtainable: No Constitutional: Reports: malaise Objective Objective Last 24 Hour Vital Signs Date Time Temp Pulse Resp B/P (MAP) Pulse Ox O2 Delivery O2 Flow Rate FiO2 11/21/17 12:00 97.7 83 19 140/79 (99) 96 97.7 11/21/17 10:30 98.0 11/21/17 09:31 90 136/77 11/21/17 09:31 99.9 11/21/17 09:00 Room Air 11/21/17 08:00 99.9 90 19 136/77 (96) 90 99.9 11/21/17 04:00 98.1 89 19 140/74 (96) 93 98.1 11/21/17 00:00 98.0 83 18 140/70 (93) 93 98.0 11/20/17 21:00 Room Air 11/20/17 20:00 99.1 95 20 151/81 (104) 93 99.1 11/20/17 16:00 98.4 93 18 160/92 (114) 93 98.4 Intake and Output 11/20/17 11/21/17 19:00 07:00 Intake Total 2200 ml 1760 ml Balance 2200 ml 1760 ml Intake Oral 700 ml IV Total 1500 ml 1760 ml # Voids 4 3 Laboratory Tests 11/21/17 06:35: White Blood Count 8.1, Red Blood Count 3.62L, Hemoglobin 10.0L, Hematocrit 28.1L , Mean Corpuscular Volume 78L, Mean Corpuscular Hemoglobin 27.7, Mean Corpuscular Hemoglobin Concent 35.7, Red Cell Distribution Width 10.1L, Platelet Count 239, Mean Platelet Volume 6.3L, Neutrophils (%) (Auto) 79.1H, Lymphocytes (%) (Auto) 11.9L, Monocytes (%) (Auto) 5.8, Eosinophils (%) (Auto) 3.1H, Basophils (%) (Auto) 0.2, Sodium Level 140, Potassium Level 2.8L, Chloride Level 104, Carbon Dioxide Level 24, Anion Gap 11, Blood Urea Nitrogen 30H, Creatinine 2.2H, Estimat Glomerular Filtration Rate 22.6, Glucose Level 84 , Uric Acid 6.5, Calcium Level 11.0H, Phosphorus Level 2.4L, Magnesium Level 1.6L, Iron Level 37L, Total Iron Binding Capacity 185L, Percent Iron Saturation 20, Unsaturated Iron Binding 148, Ferritin 812H, Total Bilirubin 0.3, Gamma Glutamyl Transpeptidase 73, Aspartate Amino Transf (AST/SGOT) 38H, Alanine Aminotransferase (ALT/SGPT) 28, Alkaline Phosphatase 212H, Total Protein 7.0, Albumin 2.9L, Globulin 4.1, Albumin/Globulin Ratio 0.7L, Coccidioides Antibody ( Comp Fix) [Pending] 11/21/17 13:05: Albumin/Globulin Ratio [Pending], Total Protein (PEP) [Pending], Albumin (PEP) [ Pending], Globulin (PEP) [Pending], Jaann-3-Lndsrjugy [Pending], Alpha-2- Globulins [Pending], Beta Globulins [Pending], Beta Gamma Globulin [Pending], PEP Abnormal Protein Bands [Pending], Protein Electrophoresis Interpret [Pending ], Angiotensin Converting Enzyme [Pending], Carcinoembryonic Antigen [Pending], CA 15-3 Antigen [Pending], CA 27.29 [Pending], Immunoglobulin [place]/Lambda Ratio [Pending], [place] Light Chain Analysis [Pending], Lambda Light Chain Analysis [Pending], TB Test (T-Spot) [Pending], TB Test Nil Control (T-Spot) [ Pending], TB Test Panel A (T-Spot) [Pending], TB Test Panel B (T-Spot) [Pending] , TB Test Positive Control (T-Spot) [Pending] Height (Feet): 5 Height (Inches): 2.00 Weight (Pounds): 143 General Appearance: no apparent distress Cardiovascular: regular rhythm Respiratory/Chest: decreased breath sounds Abdomen: soft Victor Hugo Ozuna MD Nov 21, 2017 13:22
[2017-11-21] MEDS ORDERED: Potassium Phosphate 30 MM in Sodium Chloride 500ML 550 ML IV SCH (14:30)
--- NOTE | 2017-11-21 14:38 | Diagnostic Imaging Report ---
Indication: History of breast carcinoma, right hip pain, elevated alkaline phosphatase Technique: IV administration 26 mCi 99 M technetium MDP. Whole body and spot images were obtained. Comparison: None Findings: Multiple foci of increased uptake are seen throughout the skeleton. Foci of abnormal uptake are seen within the calvarium, bilateral shoulders, cervical spine, thoracic spine, lumbar spine, bilateral ribs, bilateral iliac bones, and bilateral proximal femurs. Normal renal and bladder activity Impression: Numerous foci of increased uptake throughout the primarily axial skeleton, as described. Findings are consistent with multiple osseous metastases
[2017-11-21] MEDS ORDERED: SODIUM CHLORIDE IVPB ONE (15:15)
[2017-11-21] MEDS ORDERED: PAMIDRONATE DISODIUM IVPB ONE (15:15)
--- NOTE | 2017-11-21 15:27 | General Progress Note ---
Assessment/Plan Problem List: (1) Hyperphosphatemia ICD Codes: E83.39 - Other disorders of phosphorus metabolism SNOMED: 20292478 (2) Leukocytosis ICD Codes: D72.829 - Elevated white blood cell count, unspecified SNOMED: 016714280, 448995584 (3) UTI (urinary tract infection) ICD Codes: N39.0 - Urinary tract infection, site not specified SNOMED: 34170668 (4) Renal failure ICD Codes: N19 - Unspecified kidney failure SNOMED: 23746808 (5) Hypercalcemia ICD Codes: E83.52 - Hypercalcemia SNOMED: 15854128 (6) Bone pain ICD Codes: M89.8X9 - Other specified disorders of bone, unspecified site SNOMED: 59710471 (7) Intractable nausea and vomiting ICD Codes: R11.2 - Nausea with vomiting, unspecified SNOMED: 191230517 Qualifiers: Qualified Codes: R11.2 - Nausea with vomiting, unspecified (8) h/o breast cancer s/p double mastectomy, in remission (9) Generalized weakness ICD Codes: R53.1 - Weakness SNOMED: 96175449 (10) Lung nodule ICD Codes: R91.1 - Solitary pulmonary nodule SNOMED: 898903470 Status: stable, progressing Assessment/Plan Assessment: 62 y/o female with a h/o breast cancer s/p mastectomy now in remission presented with 2 days of intractable n/v and generalized weakness. Found to be hypercalcemic and hyperphosphatemic. Will workup for primary vs. secondary hypercalcemia. - Endocrinology, nephrology, and general surgery consulted - Oncology, Dr. Amador, will also see to r/o malignancy - Pulmonology consulted - CT a/p/chest w/o contrast - NM bone scan whole body - elevated alk phos, check GGT to r/o bone disorder - f/u serum light chains, spep, upep, CEA, CA 15-3, CA 27-29, MIGUEL test - IVF - Trend Cr 3.0 --> 2.8 - F/u renal U/S -- normal - F/u PTH and other lab markers - Trend ionized Ca and phosphorus - s/p pamidronate - Continue calcitonin - Trend WBC - Continue IV ceftriaxone - F/u urine cx - F/u CXR -- 12 mm left lung nodule - Check uric acid - PT/OT eval - Pain control and supportive care - F/u MRI of right hip from outside hospital D/w PCP: Dr. Reese [phone] DVT Prophylaxis: SCD, HSQ Code Status: Full Hospital Classification Declaration: Based on this initial evaluation, and depending on the patient's clinical course, I anticipate that this patient will require hospitalization for 3-4 days for intractable n/v, hypercalcemic workup and close respiratory/hemodynamic monitoring. Disposition: Once the patient is stable to leave the hospital, I anticipate the patient will likely be discharged to the following environment: home with HH vs SNF I spent 41 minutes on this patient's case, and 28 minutes were dedicated to counseling and/or care coordination. Discussed with patient/family, nursing staff, SW/CM, and all consultants involved regarding clinical status, treatment course, and disposition planning. Time of note may not reflect time of encounter. Subjective Date patient seen: Nov 21, 2017 Allergies: Coded Allergies: CODEINE (Verified Allergy, Unknown, 11/19/17) IBUPROFEN (Verified Allergy, Unknown, 11/18/17) tongue swelling IODINE (Verified Allergy, Unknown, 11/19/17) Patient reports that she does not have allergy to Iodine. NAPROXEN (Verified Allergy, Unknown, 11/18/17) tongue swelling Subjective patient going down to CT and bone scan results pending Objective Last 24 Hour Vital Signs Date Time Temp Pulse Resp B/P (MAP) Pulse Ox O2 Delivery O2 Flow Rate FiO2 11/21/17 12:00 97.7 83 19 140/79 (99) 96 97.7 11/21/17 10:30 98.0 11/21/17 09:31 90 136/77 11/21/17 09:31 99.9 11/21/17 09:00 Room Air 11/21/17 08:00 99.9 90 19 136/77 (96) 90 99.9 11/21/17 04:00 98.1 89 19 140/74 (96) 93 98.1 11/21/17 00:00 98.0 83 18 140/70 (93) 93 98.0 11/20/17 21:00 Room Air 11/20/17 20:00 99.1 95 20 151/81 (104) 93 99.1 11/20/17 16:00 98.4 93 18 160/92 (114) 93 98.4 Intake and Output 11/20/17 11/21/17 19:00 07:00 Intake Total 2200 ml 1760 ml Balance 2200 ml 1760 ml Intake Oral 700 ml IV Total 1500 ml 1760 ml # Voids 4 3 Laboratory Tests 11/21/17 06:35: White Blood Count 8.1, Red Blood Count 3.62L, Hemoglobin 10.0L, Hematocrit 28.1L , Mean Corpuscular Volume 78L, Mean Corpuscular Hemoglobin 27.7, Mean Corpuscular Hemoglobin Concent 35.7, Red Cell Distribution Width 10.1L, Platelet Count 239, Mean Platelet Volume 6.3L, Neutrophils (%) (Auto) 79.1H, Lymphocytes (%) (Auto) 11.9L, Monocytes (%) (Auto) 5.8, Eosinophils (%) (Auto) 3.1H, Basophils (%) (Auto) 0.2, Sodium Level 140, Potassium Level 2.8L, Chloride Level 104, Carbon Dioxide Level 24, Anion Gap 11, Blood Urea Nitrogen 30H, Creatinine 2.2H, Estimat Glomerular Filtration Rate 22.6, Glucose Level 84 , Uric Acid 6.5, Calcium Level 11.0H, Phosphorus Level 2.4L, Magnesium Level 1.6L, Iron Level 37L, Total Iron Binding Capacity 185L, Percent Iron Saturation 20, Unsaturated Iron Binding 148, Ferritin 812H, Total Bilirubin 0.3, Gamma Glutamyl Transpeptidase 73, Aspartate Amino Transf (AST/SGOT) 38H, Alanine Aminotransferase (ALT/SGPT) 28, Alkaline Phosphatase 212H, Total Protein 7.0, Albumin 2.9L, Globulin 4.1, Albumin/Globulin Ratio 0.7L, Coccidioides Antibody ( Comp Fix) [Pending] 11/21/17 13:05: Albumin/Globulin Ratio [Pending], Total Protein (PEP) [Pending], Albumin (PEP) [ Pending], Globulin (PEP) [Pending], Iyhif-3-Odrvmqqfu [Pending], Alpha-2- Globulins [Pending], Beta Globulins [Pending], Beta Gamma Globulin [Pending], PEP Abnormal Protein Bands [Pending], Protein Electrophoresis Interpret [Pending ], Angiotensin Converting Enzyme [Pending], Carcinoembryonic Antigen [Pending], CA 15-3 Antigen [Pending], CA 27.29 [Pending], Immunoglobulin [place]/Lambda Ratio [Pending], [place] Light Chain Analysis [Pending], Lambda Light Chain Analysis [Pending], TB Test (T-Spot) [Pending], TB Test Nil Control (T-Spot) [ Pending], TB Test Panel A (T-Spot) [Pending], TB Test Panel B (T-Spot) [Pending] , TB Test Positive Control (T-Spot) [Pending] Height (Feet): 5 Height (Inches): 2.00 Weight (Pounds): 143 Beckie Tavera NP Nov 21, 2017 15:27
[2017-11-21 16:00] VITALS: BP 140/79
--- NOTE | 2017-11-21 16:05 | Diagnostic Imaging Report ---
Clinical Indication: History of carcinoma metastatic to bone, Evaluation for pulmonary metastases or primary lung lesion Technique: Spiral acquisitions obtained through the chest. No IV contrast utilized, . Multiplanar reconstructions generated. Total dose length product 499.77 mGycm. CTDIvol(s) 15.98 mGy. Dose reduction achieved using automated exposure control Comparison: 11/19/2017 Findings: There are trace bilateral pleural effusions. There are posterior dependent pulmonary atelectatic changes, as well as basilar atelectatic changes. No pulmonary parenchymal mass or nodule demonstrated. No focal airspace consolidation. Numerous osteolytic lesions are seen throughout the ribs. There are associated multiple pathologic rib fractures of varying acuity, particularly on the right. Bilateral scapular and humeral osteolytic lesions are demonstrated. Numerous osteolytic lesions are seen throughout the thoracic spine. There are slight compression fracture deformities of the T2, T4, and T7 vertebral bodies. The heart size is normal. There is minimal pericardial thickening versus fluid. Prominent but not frankly enlarged mediastinal lymph nodes are demonstrated. There is some infiltration of the mediastinal fat in the prevascular space. Included portions of the thyroid are unremarkable. No axillary or chest wall mass or adenopathy. Surgical clips are seen in the left breast. The included upper abdominal anatomy is unremarkable Impression: . Numerous thoracic osteolytic lesions, as described. There are associated pathologic fractures of multiple ribs. Very mild pathologic compression fractures of multiple thoracic vertebral segments are also noted. No evidence of primary pulmonary malignancy or pulmonary metastatic process Evidence of prior left breast surgery-correlate with surgical history Trace bilateral pleural effusions Posterior dependent and basilar pulmonary atelectatic changes Nonspecific infiltration of the mediastinal fat the prevascular space The CT scanner at [facility] is accredited by the [employer] [employer] and the scans are performed using protocols designed to limit radiation exposure to as low as reasonably achievable to attain images of sufficient resolution adequate for diagnostic evaluation.
--- NOTE | 2017-11-21 16:20 | General Surgery Progress Note ---
General Surgery-Progress Note Subjective Additional Comments doing well. feeling better. had bone scan and CT. Objective Last 24 Hour Vital Signs Date Time Temp Pulse Resp B/P (MAP) Pulse Ox O2 Delivery O2 Flow Rate FiO2 11/21/17 12:00 97.7 83 19 140/79 (99) 96 97.7 11/21/17 10:30 98.0 11/21/17 09:31 90 136/77 11/21/17 09:31 99.9 11/21/17 09:00 Room Air 11/21/17 08:00 99.9 90 19 136/77 (96) 90 99.9 11/21/17 04:00 98.1 89 19 140/74 (96) 93 98.1 11/21/17 00:00 98.0 83 18 140/70 (93) 93 98.0 11/20/17 21:00 Room Air 11/20/17 20:00 99.1 95 20 151/81 (104) 93 99.1 I&O Intake and Output 11/20/17 11/21/17 19:00 07:00 Intake Total 2200 ml 1760 ml Balance 2200 ml 1760 ml Intake Oral 700 ml IV Total 1500 ml 1760 ml # Voids 4 3 Drains: none Cardiovascular: RSR Respiratory: clear Abdomen: soft, flat, non-tender, present bowel sounds Extremities: no cyanosis Laboratory Tests Test 11/21/17 06:35 11/21/17 13:05 White Blood Count 8.1 K/UL (4.8-10.8) Red Blood Count 3.62 M/UL (4.20-5.40) L Hemoglobin 10.0 G/DL (12.0-16.0) L Hematocrit 28.1 % (37.0-47.0) L Mean Corpuscular Volume 78 FL (80-99) L Mean Corpuscular Hemoglobin 27.7 PG (27.0-31.0) Mean Corpuscular Hemoglobin Concent 35.7 G/DL (32.0-36.0) Red Cell Distribution Width 10.1 % (11.6-14.8) L Platelet Count 239 K/UL (150-450) Mean Platelet Volume 6.3 FL (6.5-10.1) L Neutrophils (%) (Auto) 79.1 % (45.0-75.0) H Lymphocytes (%) (Auto) 11.9 % (20.0-45.0) L Monocytes (%) (Auto) 5.8 % (1.0-10.0) Eosinophils (%) (Auto) 3.1 % (0.0-3.0) H Basophils (%) (Auto) 0.2 % (0.0-2.0) Sodium Level 140 MMOL/L (136-145) Potassium Level 2.8 MMOL/L (3.5-5.1) L Chloride Level 104 MMOL/L (98-107) Carbon Dioxide Level 24 MMOL/L (21-32) Anion Gap 11 mmol/L (5-15) Blood Urea Nitrogen 30 mg/dL (7-18) H Creatinine 2.2 MG/DL (0.55-1.30) H Estimat Glomerular Filtration Rate 22.6 mL/min (>60) Glucose Level 84 MG/DL (74-106) Uric Acid 6.5 MG/DL (2.6-7.2) Calcium Level 11.0 MG/DL (8.5-10.1) H Phosphorus Level 2.4 MG/DL (2.5-4.9) L Magnesium Level 1.6 MG/DL (1.8-2.4) L Iron Level 37 ug/dL (50-175) L Total Iron Binding Capacity 185 ug/dL (250-450) L Percent Iron Saturation 20 % (15-50) Unsaturated Iron Binding 148 ug/dL (112-346) Ferritin 812 NG/ML (8-388) H Total Bilirubin 0.3 MG/DL (0.2-1.0) Gamma Glutamyl Transpeptidase 73 U/L (5-85) Aspartate Amino Transf (AST/SGOT) 38 U/L (15-37) H Alanine Aminotransferase (ALT/SGPT) 28 U/L (12-78) Alkaline Phosphatase 212 U/L (46-116) H Total Protein 7.0 G/DL (6.4-8.2) Albumin 2.9 G/DL (3.4-5.0) L Globulin 4.1 g/dL Albumin/Globulin Ratio 0.7 (1.0-2.7) L Pending Coccidioides Antibody (Comp Fix) Pending Total Protein (PEP) Pending Albumin (PEP) Pending Globulin (PEP) Pending Jtupq-4-Wvyrbvjwo Pending Dkwzp-4-Ygkxazcxn Pending Beta Globulins Pending Beta Gamma Globulin Pending PEP Abnormal Protein Bands Pending Protein Electrophoresis Interpret Pending Angiotensin Converting Enzyme Pending Carcinoembryonic Antigen Pending CA 15-3 Antigen Pending CA 27.29 Pending Immunoglobulin [place]/Lambda Ratio Pending [place] Light Chain Analysis Pending Lambda Light Chain Analysis Pending TB Test (T-Spot) Pending TB Test Nil Control (T-Spot) Pending TB Test Panel A (T-Spot) Pending TB Test Panel B (T-Spot) Pending TB Test Positive Control (T-Spot) Pending Plan Problems: (1) Intractable nausea and vomiting Assessment & Plan: likely related to hypercalcemia and unlikely obstructive KUB reviewed. [place] torres for diet (2) Hypercalcemia Assessment & Plan: likely primary hypercalcemia. etiology work up -pending remaining labs -will follow as information available -fluids, Rx as written -CT reviewed -bone scan reviewed - Numerous foci of increased uptake throughout the primarily axial skeleton, as described. Findings are consistent with multiple osseous metastases -?oncology input. ?multiple myeloma -okay for diet thank you for this consultation will follow with you Elfego Webb Nov 21, 2017 16:20
--- NOTE | 2017-11-21 18:37 | Pulmonology Progress Note ---
Assessment/Plan Assessment/Plan Pulmonary Consultation 62 y/o female with a PMH of breast cancer s/p double mastectomy now in remission presented to [facility] for intractable nausea and vomiting for 2 days. Noted to have 12mm Left upper lobe nodule on CXR CT Chest: No Pulmonary nodule, multiple bony lesions Patient states that she has been having NBNB emesis for 2 days with associated fevers and chills. Denies abdominal pain, diarrhea or constipation. Does not recall eating anything out of the norm. Patient also reports R hip pain, where a recent MRI was done but results are unknown to them. Patient states that she has had progressively difficulty walking for the last 1 month and now completely unable to ambulate for the last 2 days. In the ED, patient was noted to be severely hypercalcemic at 17, hyperphosphatemia and hypermagnesemia. Patient's ionized Ca was also noted to be elevated and patient was given a dose of pamidronate. Patient was also noted to have a Cr of 3 and patient was started on IVF. Patient was noted to have a UTI and patient was given IV ceftriaxone. Patient was further admitted. At this time, patient denies any chest pain, sob. Continues to report nausea but no vomiting or abdominal pain today. Denies d/c, f/c. Continues to report inability to walk. Allergies: Coded Allergies: IBUPROFEN (Verified Allergy, Unknown, 11/18/17) tongue swelling IODINE (Verified Allergy, Unknown, 11/18/17) NAPROXEN (Verified Allergy, Unknown, 11/18/17) tongue swelling Medication History Miscellaneous Medications Magnesium Oxide (Magnesium), 500 MG PO, (Reported) Ubidecarenone (Coq-10), Unknown Dose PO, (Reported) Patient History History Provided By: Patient Healthcare decision maker Resuscitation status Full Code Advanced Directive on File Review of Systems All Other Systems: negative except mentioned in HPI Physical Exam General Appearance: no apparent distress, alert HEENT: normocephalic, atraumatic Neck: non-tender, normal alignment, supple Respiratory/Chest: chest wall non-tender, lungs clear, normal breath sounds Cardiovascular/Chest: normal peripheral pulses, normal rate, regular rhythm Abdomen: normal bowel sounds, non tender, soft Skin Exam: normal pigmentation, warm/dry 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, alert, oriented x 3, motor weakness Last 24 Hour Vital Signs Date Time Temp Pulse Resp B/P (MAP) Pulse Ox O2 Delivery O2 Flow Rate FiO2 11/19/17 12:00 98.4 90 18 149/83 (105) 95 98.4 11/19/17 11:05 90 149/83 11/19/17 08:45 Room Air 11/19/17 08:00 98.1 89 18 154/84 (107) 93 98.1 11/19/17 04:00 98.3 79 19 163/93 (116) 94 98.3 11/19/17 00:12 Room Air 11/19/17 00:00 99.0 83 20 167/88 (114) 94 99.0 11/18/17 22:00 99.3 92 20 178/93 (121) 95 99.3 11/18/17 21:50 98.2 81 18 151/90 99 Room Air 98.2 11/18/17 21:30 98.4 78 18 148/83 97 Room Air 98.4 11/18/17 20:30 98.2 81 18 151/90 99 Room Air 98.2 11/18/17 19:30 98.2 82 18 178/83 96 Room Air 98.2 11/18/17 18:20 98.2 85 18 146/83 95 Room Air 98.2 11/18/17 17:45 98.2 95 18 146/83 95 Room Air 98.2 Intake and Output 11/18/17 11/19/17 19:00 07:00 Intake Total 2200 ml Balance 2200 ml Intake Oral 600 ml IV Total 1600 ml # Voids [address] Chhest: 11/20/2017 CT Chest no Contrast Clinical Indication: History of carcinoma metastatic to bone, Evaluation for pulmonary metastases or primary lung lesion Technique: Spiral acquisitions obtained through the chest. No IV contrast utilized, . Multiplanar reconstructions generated. Total dose length product 499.77 mGycm. CTDIvol(s) 15.98 mGy. Dose reduction achieved using automated exposure control Comparison: 11/19/2017 Findings: There are trace bilateral pleural effusions. There are posterior dependent pulmonary atelectatic changes, as well as basilar atelectatic changes. No pulmonary parenchymal mass or nodule demonstrated. No focal airspace consolidation. Numerous osteolytic lesions are seen throughout the ribs. There are associated multiple pathologic rib fractures of varying acuity, particularly on the right. Bilateral scapular and humeral osteolytic lesions are demonstrated. Numerous osteolytic lesions are seen throughout the thoracic spine. There are slight compression fracture deformities of the T2, T4, and T7 vertebral bodies. The heart size is normal. There is minimal pericardial thickening versus fluid. Prominent but not frankly enlarged mediastinal lymph nodes are demonstrated. There is some infiltration of the mediastinal fat in the prevascular space. Included portions of the thyroid are unremarkable. No axillary or chest wall mass or adenopathy. Surgical clips are seen in the left breast. The included upper abdominal anatomy is unremarkable Impression: . Numerous thoracic osteolytic lesions, as described. There are associated pathologic fractures of multiple ribs. Very mild pathologic compression fractures of multiple thoracic vertebral segments are also noted. No evidence of primary pulmonary malignancy or pulmonary metastatic process Evidence of prior left breast surgery-correlate with surgical history Trace bilateral pleural effusions Posterior dependent and basilar pulmonary atelectatic changes Nonspecific infiltration of the mediastinal fat the prevascular space CXR 11/18/2017 Findings: 12 mm well-circumscribed rounded nodular opacity is seen projected in the left upper lung. There is slight blunting of the left costophrenic sulcus. There is some atelectasis or scarring left midlung. The lungs and pleural spaces are otherwise clear. Surgical clips are seen in the right axilla is old healed fracture deformity of the right sixth rib Impression: 12 mm left upper lobe nodule. Further evaluation with CT recommended if clinically indicated. Patient's nurse Rosaura notified at the time on interpretation Small left pleural effusion Left perihilar atelectasis or scarring Test 11/18/17 18:23 11/18/17 19:40 11/18/17 23:13 11/19/17 04:34 White Blood Count 17.2 K/UL (4.8-10.8) H Red Blood Count 4.62 M/UL (4.20-5.40) Hemoglobin 12.6 G/DL (12.0-16.0) Hematocrit 35.6 % (37.0-47.0) L Mean Corpuscular Volume 77 FL (80-99) L Mean Corpuscular Hemoglobin 27.3 PG (27.0-31.0) Mean Corpuscular Hemoglobin Concent 35.5 G/DL (32.0-36.0) Red Cell Distribution Width 10.3 % (11.6-14.8) L Platelet Count 321 K/UL (150-450) Mean Platelet Volume 6.7 FL (6.5-10.1) Neutrophils (%) (Auto) 84.4 % (45.0-75.0) H Lymphocytes (%) (Auto) 9.9 % (20.0-45.0) L Monocytes (%) (Auto) 5.2 % (1.0-10.0) Eosinophils (%) (Auto) 0.1 % (0.0-3.0) Basophils (%) (Auto) 0.5 % (0.0-2.0) Sodium Level 133 MMOL/L (136-145) L 136 MMOL/L (136-145) Potassium Level 2.9 MMOL/L (3.5-5.1) L 3.4 MMOL/L (3.5-5.1) L Chloride Level 93 MMOL/L (98-107) L 99 MMOL/L (98-107) Carbon Dioxide Level 28 MMOL/L (21-32) 28 MMOL/L (21-32) Anion Gap 12 mmol/L (5-15) 9 mmol/L (5-15) Blood Urea Nitrogen 45 mg/dL (7-18) H 47 mg/dL (7-18) H Creatinine 2.9 MG/DL (0.55-1.30) H 3.0 MG/DL (0.55-1.30) H Estimat Glomerular Filtration Rate 16.5 mL/min (>60) 15.8 mL/min (>60) Glucose Level 108 MG/DL (74-106) H 94 MG/DL (74-106) Calcium Level 17.5 MG/DL (8.5-10.1) *H 14.9 MG/DL (8.5-10.1) *H Phosphorus Level 5.6 MG/DL (2.5-4.9) H Magnesium Level 2.6 MG/DL (1.8-2.4) H 2.2 MG/DL (1.8-2.4) Total Bilirubin 0.7 MG/DL (0.2-1.0) 0.4 MG/DL (0.2-1.0) Aspartate Amino Transf (AST/SGOT) 28 U/L (15-37) 24 U/L (15-37) Alanine Aminotransferase (ALT/SGPT) 21 U/L (12-78) 18 U/L (12-78) Alkaline Phosphatase 249 U/L (46-116) H 193 U/L (46-116) H Total Protein 8.9 G/DL (6.4-8.2) H 6.9 G/DL (6.4-8.2) Albumin 4.1 G/DL (3.4-5.0) 3.1 G/DL (3.4-5.0) L Globulin 4.8 g/dL 3.8 g/dL Albumin/Globulin Ratio 0.9 (1.0-2.7) L Pending 0.8 (1.0-2.7) L Lipase 220 U/L (73-393) Urine Color Pale yellow Urine Appearance Slightly cloudy Urine pH 6.5 (4.5-8.0) Urine Specific [place] 1.015 (1.005-1.035) Urine Protein 2+ (NEGATIVE) H Urine Glucose (UA) Negative (NEGATIVE) Urine Ketones Negative (NEGATIVE) Urine Occult Blood 2+ (NEGATIVE) H Urine Nitrite Negative (NEGATIVE) Urine Bilirubin Negative (NEGATIVE) Urine Urobilinogen Normal MG/DL (0.0-1.0) Urine Leukocyte Esterase 3+ (NEGATIVE) H Urine RBC 10-15 /HPF (0 - 2) H Urine WBC 20-30 /HPF (0 - 2) H Urine Squamous Epithelial Cells Moderate /LPF (NONE/OCC) H Urine Bacteria Moderate /HPF (NONE) H Calcium (Send out) Pending Ionized Calcium (Measured) 1.84 mmol/L (1.10-1.35) *H 1.83 mmol/L (1.10-1.35) *H Total Protein (PEP) Pending Albumin (PEP) Pending Globulin (PEP) Pending Blvtk-1-Okbyagjqz Pending Acuiy-1-Vxtgnouxh Pending Beta Globulins Pending Beta Gamma Globulin Pending PEP Abnormal Protein Bands Pending Protein Electrophoresis Interpret Pending Vitamin D 25-Hydroxy Pending 25-Hydroxy Vitamin D2 Pending 25-Hydroxy Vitamin D3 Pending Parathyroid Hormone (Intact) Pending Parathyroid Hormone Related Protein Pending Test 11/19/17 06:15 Urine Total Protein Pending Urine Albumin (%) Pending Urine Inpcp-3-Gxfcpbzko (%) Pending Urine Hwfzz-4-Xjocmsbuo (%) Pending Urine Beta-Globulin (%) Pending Urine Gamma Globulin (%) Pending Ur Protein Electrophoresis M-Pardeep Pending Urine Protein Electrophoresis Intrp Pending Microbiology Date/Time Source Procedure Growth Status 11/18/17 19:40 Urine,Clean Catch Urine Culture - Preliminary Resulted Height (Feet): 5 Height (Inches): 2.00 Weight (Pounds): 143 Medications Current Medications Medications (Trade) Dose Ordered Sig/Julieta Route PRN Reason Start Time Stop Time Status Last Admin Dose Admin Acetaminophen (Tylenol) 650 mg Q4H PRN ORAL Mild Pain (Pain Scale 1-3) 11/18/17 20:45 12/18/17 20:44 11/19/17 11:18 Acetaminophen (Tylenol) 650 mg Q4H PRN ORAL T>100.5 11/18/17 20:45 12/18/17 20:44 Amlodipine Besylate (Norvasc) 10 mg DAILY ORAL 11/19/17 09:45 12/19/17 09:44 11/19/17 11:05 Bisacodyl (Dulcolax) 10 mg HSPRN PRN RECTAL Constipation 11/18/17 20:45 12/18/17 20:44 Calcitonin [place] (Miacalcin) 1 sprays DAILY NASAL 11/20/17 09:00 12/20/17 08:59 Ceftriaxone Sodium 1 gm/ Dextrose 110 ml @ 220 mls/hr Q24H IVPB 11/18/17 21:00 11/25/17 20:59 11/18/17 23:57 Dextrose (Dextrose 50%) 25 ml STAT PRN IV Hypoglycemia 11/18/17 20:45 12/18/17 20:44 Dextrose (Dextrose 50%) 50 ml STAT PRN IV Hypoglycemia 11/18/17 20:45 12/18/17 20:44 Docusate Sodium (Colace) 100 mg EVERY 12 HOURS ORAL 11/18/17 21:00 12/18/17 20:59 Heparin Sodium (Porcine) (Heparin 5000 units/ml) 5,000 units EVERY 12 HOURS SUBQ 11/18/17 21:00 12/18/17 20:59 Hydralazine HCl (Apresoline) 10 mg BEDTIME PRN ORAL For High Blood Pressure 11/18/17 23:30 12/18/17 23:29 Ondansetron HCl (Zofran) 4 mg Q6H PRN IVP Nausea & Vomiting 11/18/17 20:45 12/18/17 20:44 Polyethylene Glycol (Miralax) 17 gm HSPRN PRN ORAL Constipation 11/18/17 20:45 12/18/17 20:44 Sodium Chloride 1,000 ml @ 150 mls/hr Q6H40M IV 11/19/17 09:30 12/19/17 09:29 11/19/17 11:04 Trazodone HCl (Desyrel) 50 mg BEDTIME PRN ORAL Insomnia 11/18/17 23:30 12/18/17 23:29 11/18/17 23:58 Assessment/Plan Problem List: (1) Hyperphosphatemia ICD Codes: E83.39 - Other disorders of phosphorus metabolism SNOMED: 94037727 (2) Leukocytosis ICD Codes: D72.829 - Elevated white blood cell count, unspecified SNOMED: 890818446, 608626975 (3) UTI (urinary tract infection) ICD Codes: N39.0 - Urinary tract infection, site not specified SNOMED: 76403658 (4) Renal failure ICD Codes: N19 - Unspecified kidney failure SNOMED: 71916018 (5) Hypercalcemia ICD Codes: E83.52 - Hypercalcemia SNOMED: 50435105 (6) Bone pain ICD Codes: M89.8X9 - Other specified disorders of bone, unspecified site SNOMED: 12356709 (7) Intractable nausea and vomiting ICD Codes: R11.2 - Nausea with vomiting, unspecified SNOMED: 455928004 Qualifiers: Qualified Codes: R11.2 - Nausea with vomiting, unspecified (8) h/o breast cancer s/p double mastectomy, in remission (9) Generalized weakness ICD Codes: R53.1 - Weakness SNOMED: 65871606 Status: stable, progressing Assessment/Plan Assessment: 62 y/o female with a h/o breast cancer s/p mastectomy now in remission presented with 2 days of intractable n/v and generalized weakness. Found to be hypercalcemic and hyperphosphatemic. Will workup for primary vs. secondary hypercalcemia. - CT Chest - IVF - Trend Cr - F/u renal U/S - F/u PTH and other lab markers - Trend ionized Ca and phosphorus - s/p pamidronate - Continue calcitonin - Trend WBC - Continue IV ceftriaxone - F/u urine cx - F/u CXR - Check uric acid - PT/OT eval - Pain control and supportive care DVT Prophylaxis: SCD, HSQ Code Status: Full Subjective ROS Limited/Unobtainable: No Allergies: Coded Allergies: CODEINE (Verified Allergy, Unknown, 11/19/17) IBUPROFEN (Verified Allergy, Unknown, 11/18/17) tongue swelling IODINE (Verified Allergy, Unknown, 11/19/17) Patient reports that she does not have allergy to Iodine. NAPROXEN (Verified Allergy, Unknown, 11/18/17) tongue swelling Objective Last 24 Hour Vital Signs Date Time Temp Pulse Resp B/P (MAP) Pulse Ox O2 Delivery O2 Flow Rate FiO2 11/21/17 16:00 98.8 95 18 140/79 (99) 95 98.8 11/21/17 12:00 97.7 83 19 140/79 (99) 96 97.7 11/21/17 10:30 98.0 11/21/17 09:31 90 136/77 11/21/17 09:31 99.9 11/21/17 09:00 Room Air 11/21/17 08:00 99.9 90 19 136/77 (96) 90 99.9 11/21/17 04:00 98.1 89 19 140/74 (96) 93 98.1 11/21/17 00:00 98.0 83 18 140/70 (93) 93 98.0 11/20/17 21:00 Room Air 11/20/17 20:00 99.1 95 20 151/81 (104) 93 99.1 Intake and Output 11/20/17 11/21/17 19:00 07:00 Intake Total 2200 ml 1760 ml Balance 2200 ml 1760 ml Intake Oral 700 ml IV Total 1500 ml 1760 ml # Voids 4 3 Microbiology Date/Time Source Procedure Growth Status 11/18/17 19:40 Urine,Clean Catch Urine Culture - Final Mixed Urogenital Contaminants Complete Laboratory Tests 11/21/17 06:35: White Blood Count 8.1, Red Blood Count 3.62L, Hemoglobin 10.0L, Hematocrit 28.1L , Mean Corpuscular Volume 78L, Mean Corpuscular Hemoglobin 27.7, Mean Corpuscular Hemoglobin Concent 35.7, Red Cell Distribution Width 10.1L, Platelet Count 239, Mean Platelet Volume 6.3L, Neutrophils (%) (Auto) 79.1H, Lymphocytes (%) (Auto) 11.9L, Monocytes (%) (Auto) 5.8, Eosinophils (%) (Auto) 3.1H, Basophils (%) (Auto) 0.2, Sodium Level 140, Potassium Level 2.8L, Chloride Level 104, Carbon Dioxide Level 24, Anion Gap 11, Blood Urea Nitrogen 30H, Creatinine 2.2H, Estimat Glomerular Filtration Rate 22.6, Glucose Level 84 , Uric Acid 6.5, Calcium Level 11.0H, Phosphorus Level 2.4L, Magnesium Level 1.6L, Iron Level 37L, Total Iron Binding Capacity 185L, Percent Iron Saturation 20, Unsaturated Iron Binding 148, Ferritin 812H, Total Bilirubin 0.3, Gamma Glutamyl Transpeptidase 73, Aspartate Amino Transf (AST/SGOT) 38H, Alanine Aminotransferase (ALT/SGPT) 28, Alkaline Phosphatase 212H, Total Protein 7.0, Albumin 2.9L, Globulin 4.1, Albumin/Globulin Ratio 0.7L, Coccidioides Antibody ( Comp Fix) [Pending] 11/21/17 13:05: Albumin/Globulin Ratio [Pending], Total Protein (PEP) [Pending], Albumin (PEP) [ Pending], Globulin (PEP) [Pending], Xkynq-7-Pvyxdynaz [Pending], Alpha-2- Globulins [Pending], Beta Globulins [Pending], Beta Gamma Globulin [Pending], PEP Abnormal Protein Bands [Pending], Protein Electrophoresis Interpret [Pending ], Angiotensin Converting Enzyme [Pending], Carcinoembryonic Antigen [Pending], CA 15-3 Antigen [Pending], CA 27.29 [Pending], Immunoglobulin [place]/Lambda Ratio [Pending], [place] Light Chain Analysis [Pending], Lambda Light Chain Analysis [Pending], TB Test (T-Spot) [Pending], TB Test Nil Control (T-Spot) [ Pending], TB Test Panel A (T-Spot) [Pending], TB Test Panel B (T-Spot) [Pending] , TB Test Positive Control (T-Spot) [Pending] Current Medications Medications (Trade) Dose Ordered Sig/Julieta Route PRN Reason Start Time Stop Time Status Last Admin Dose Admin Acetaminophen (Tylenol) 650 mg Q4H PRN ORAL T>100.5 11/18/17 20:45 12/18/17 20:44 11/19/17 20:57 Acetaminophen (Tylenol) 650 mg Q4H PRN ORAL Mild Pain (Pain Scale 1-3) 11/18/17 20:45 12/18/17 20:44 11/21/17 09:31 Alprazolam (Xanax) 0.5 mg BIDPRN PRN ORAL ANXIETY 11/20/17 14:45 11/27/17 14:44 11/21/17 17:52 Amlodipine Besylate (Norvasc) 10 mg DAILY ORAL 11/19/17 09:45 12/19/17 09:44 11/21/17 09:31 Bisacodyl (Dulcolax) 10 mg HSPRN PRN RECTAL Constipation 11/18/17 20:45 12/18/17 20:44 Calcitonin [place] (Miacalcin) 1 sprays DAILY NASAL 11/20/17 09:00 12/20/17 08:59 11/21/17 09:40 Ceftriaxone Sodium 1 gm/ Dextrose 110 ml @ 220 mls/hr Q24H IVPB 11/18/17 21:00 11/25/17 20:59 11/20/17 21:54 Dextrose (Dextrose 50%) 25 ml STAT PRN IV Hypoglycemia 11/18/17 20:45 12/18/17 20:44 Dextrose (Dextrose 50%) 50 ml STAT PRN IV Hypoglycemia 11/18/17 20:45 12/18/17 20:44 Docusate Sodium (Colace) 100 mg TID ORAL 11/21/17 13:00 12/18/17 20:59 Heparin Sodium (Porcine) (Heparin 5000 units/ml) 5,000 units EVERY 12 HOURS SUBQ 11/18/17 21:00 12/18/17 20:59 11/21/17 09:36 Hydralazine HCl (Apresoline) 25 mg Q4H PRN ORAL SBP > 160 11/21/17 12:00 12/21/17 11:59 Ondansetron HCl (Zofran) 4 mg Q6H PRN IVP Nausea & Vomiting 11/18/17 20:45 12/18/17 20:44 11/19/17 17:16 Polyethylene Glycol (Miralax) 17 gm HSPRN PRN ORAL Constipation 11/18/17 20:45 12/18/17 20:44 Potassium Chloride (K-Dur) 40 meq TWICE A DAY ORAL 11/21/17 18:00 11/22/17 09:01 11/21/17 17:53 Sodium Chloride 1,000 ml @ 150 mls/hr Q6H40M IV 11/19/17 09:30 12/19/17 09:29 11/21/17 15:00 Trazodone HCl (Desyrel) 50 mg BEDTIME PRN ORAL Insomnia 11/18/17 23:30 12/18/17 23:29 11/19/17 23:37 Nick Jackson MD Nov 21, 2017 18:37
[2017-11-21 20:00] VITALS: BP 158/84
[2017-11-21] MEDS: cefTRIAXone 1 GM in D5W 110 ML IVPB SCH (20:44)
[2017-11-21] MEDS ORDERED: ALPRAZolam 0.5mg tab ORAL SCH (21:30)
[2017-11-21] MEDS ORDERED: Morphine Sulfate 2mg/ml Inj(IV/IM USE ONLY) IVP PRN (21:30)
[2017-11-22] VITALS: BP 136/71
[2017-11-22 04:00] VITALS: BP 140/82
[2017-11-22 06:11] LABS: BASOPHILS % (AUTO) 0.4 % (0.0-2.0); EOSINOPHILS % (AUTO) 3.4 % (0.0-3.0); HEMOGLOBIN 9.6 G/DL (12.0-16.0); LYMPHOCYTES % (AUTO) 15.3 % (20.0-45.0); MEAN CORPUSCULAR VOLUME 78 FL (80-99); MONOCYTES % (AUTO) 6.9 % (1.0-10.0); NEUTROPHILS % (AUTO) 74.1 % (45.0-75.0); PLATELET COUNT 246 K/UL (150-450); RED BLOOD COUNT 3.61 M/UL (4.20-5.40); RED CELL DISTRIBUTION WIDTH 10.2 % (11.6-14.8); WHITE BLOOD COUNT 8.9 K/UL (4.8-10.8)
[2017-11-22 06:30] LABS: ALANINE AMINOTRANSFERASE 43 U/L (12-78); ALBUMIN 2.7 G/DL (3.4-5.0); ALBUMIN/GLOBULIN RATIO 0.7 (1.0-2.7); ALKALINE PHOSPHATASE 235 U/L (46-116); ANION GAP 10 mmol/L (5-15); ASPARTATE AMINO TRANSFERASE 51 U/L (15-37); BILIRUBIN,TOTAL 0.2 MG/DL (0.2-1.0); BLOOD UREA NITROGEN 18 mg/dL (7-18); CALCIUM 8.9 MG/DL (8.5-10.1); CARBON DIOXIDE 23 MMOL/L (21-32); CHLORIDE 110 MMOL/L (98-107); CREATININE 1.6 MG/DL (0.55-1.30); PHOSPHORUS 2.6 MG/DL (2.5-4.9); POTASSIUM 3.4 MMOL/L (3.5-5.1); SODIUM 143 MMOL/L (136-145)
[2017-11-22 08:00] VITALS: BP 143/80
[2017-11-22] MEDS ORDERED: ALPRAZolam 0.5mg tab ORAL PRN ×2 (09:00→19:30)
[2017-11-22] MEDS: Heparin 5000 units/ml inj SUBQ SCH ×2 (09:00→21:22)
[2017-11-22] MEDS: Docusate 100mg cap ORAL SCH ×3 (09:00→17:04)
--- NOTE | 2017-11-22 11:19 | General Surgery Progress Note ---
General Surgery-Progress Note Subjective Additional Comments no acute events. labs improving Objective Last 24 Hour Vital Signs Date Time Temp Pulse Resp B/P (MAP) Pulse Ox O2 Delivery O2 Flow Rate FiO2 11/22/17 09:00 Room Air 11/22/17 09:00 77 140/80 11/22/17 08:00 99.5 77 21 143/80 (101) 96 99.5 11/22/17 04:00 97.6 81 19 140/82 (101) 96 97.6 11/22/17 00:00 98.1 81 19 136/71 (92) 96 98.1 11/21/17 21:00 Room Air 11/21/17 20:00 99.5 93 19 158/84 (108) 96 99.5 11/21/17 16:00 98.8 95 18 140/79 (99) 95 98.8 11/21/17 12:00 97.7 83 19 140/79 (99) 96 97.7 I&O Intake and Output 11/21/17 11/22/17 19:00 07:00 Intake Total 1890 ml 2000 ml Balance 1890 ml 2000 ml Intake Oral 240 ml 240 ml IV Total 1650 ml 1760 ml # Voids 4 # Bowel Movements 1 Cardiovascular: RSR Respiratory: clear Abdomen: soft, flat, non-tender, present bowel sounds Extremities: no tenderness, no cyanosis Laboratory Tests Test 11/21/17 13:05 11/22/17 05:50 Total Protein (PEP) Pending Albumin (PEP) Pending Globulin (PEP) Pending Albumin/Globulin Ratio Pending 0.7 (1.0-2.7) L Vcfei-0-Eazmvpxzp Pending Odrvi-4-Hcvodbqgt Pending Beta Globulins Pending Beta Gamma Globulin Pending PEP Abnormal Protein Bands Pending Protein Electrophoresis Interpret Pending Angiotensin Converting Enzyme Pending Carcinoembryonic Antigen Pending CA 15-3 Antigen Pending CA 27.29 Pending Immunoglobulin [place]/Lambda Ratio Pending [place] Light Chain Analysis Pending Lambda Light Chain Analysis Pending TB Test (T-Spot) Pending TB Test Nil Control (T-Spot) Pending TB Test Panel A (T-Spot) Pending TB Test Panel B (T-Spot) Pending TB Test Positive Control (T-Spot) Pending White Blood Count 8.9 K/UL (4.8-10.8) Red Blood Count 3.61 M/UL (4.20-5.40) L Hemoglobin 9.6 G/DL (12.0-16.0) L Hematocrit 28.0 % (37.0-47.0) L Mean Corpuscular Volume 78 FL (80-99) L Mean Corpuscular Hemoglobin 26.7 PG (27.0-31.0) L Mean Corpuscular Hemoglobin Concent 34.4 G/DL (32.0-36.0) Red Cell Distribution Width 10.2 % (11.6-14.8) L Platelet Count 246 K/UL (150-450) Mean Platelet Volume 5.9 FL (6.5-10.1) L Neutrophils (%) (Auto) 74.1 % (45.0-75.0) Lymphocytes (%) (Auto) 15.3 % (20.0-45.0) L Monocytes (%) (Auto) 6.9 % (1.0-10.0) Eosinophils (%) (Auto) 3.4 % (0.0-3.0) H Basophils (%) (Auto) 0.4 % (0.0-2.0) Sodium Level 143 MMOL/L (136-145) Potassium Level 3.4 MMOL/L (3.5-5.1) L Chloride Level 110 MMOL/L (98-107) H Carbon Dioxide Level 23 MMOL/L (21-32) Anion Gap 10 mmol/L (5-15) Blood Urea Nitrogen 18 mg/dL (7-18) Creatinine 1.6 MG/DL (0.55-1.30) H Estimat Glomerular Filtration Rate 32.6 mL/min (>60) Glucose Level 90 MG/DL (74-106) Uric Acid 4.5 MG/DL (2.6-7.2) Calcium Level 8.9 MG/DL (8.5-10.1) Phosphorus Level 2.6 MG/DL (2.5-4.9) Magnesium Level 1.8 MG/DL (1.8-2.4) Total Bilirubin 0.2 MG/DL (0.2-1.0) Aspartate Amino Transf (AST/SGOT) 51 U/L (15-37) H Alanine Aminotransferase (ALT/SGPT) 43 U/L (12-78) Alkaline Phosphatase 235 U/L (46-116) H Total Protein 6.7 G/DL (6.4-8.2) Albumin 2.7 G/DL (3.4-5.0) L Globulin 4.0 g/dL Plan Problems: (1) Intractable nausea and vomiting Assessment & Plan: likely related to hypercalcemia and unlikely obstructive KUB reviewed. okay okay for diet (2) Hypercalcemia Assessment & Plan: likely primary hypercalcemia. etiology work up -pending remaining labs -will follow as information available -fluids, Rx as written -CT reviewed -bone scan reviewed - Numerous foci of increased uptake throughout the primarily axial skeleton, as described. Findings are consistent with multiple osseous metastases -?oncology input. ?multiple myeloma -okay for diet thank you for this consultation will follow with you Elfego Webb Nov 22, 2017 11:19
--- NOTE | 2017-11-22 11:40 | Nephrology Progress Note ---
Assessment/Plan Problem List: (1) Renal failure Assessment: acute (2) Hypercalcemia Assessment: likely Vit D toxicity (3) Intractable nausea and vomiting (4) Lung nodule Assessment: r/o mets (5) h/o breast cancer s/p double mastectomy, in remission Assessment . Hypercalcemia imroved - likley due to Vit D toxcity, levels pending 2. MARTIN- due to severe hypercalcemia improved 3. Breast cancer, status post double mastectomy - CXR pulm nodule. Defer to PCP Plan Aredia was not given yesterday as couldnt be supplied Hydrate correct electrolytes waiting PTH and Vit D level monitor Ca Alb Phos Mag Lytes ? DC in am Subjective ROS Limited/Unobtainable: No Objective Objective Last 24 Hour Vital Signs Date Time Temp Pulse Resp B/P (MAP) Pulse Ox O2 Delivery O2 Flow Rate FiO2 11/22/17 09:00 Room Air 11/22/17 09:00 77 140/80 11/22/17 08:00 99.5 77 21 143/80 (101) 96 99.5 11/22/17 04:00 97.6 81 19 140/82 (101) 96 97.6 11/22/17 00:00 98.1 81 19 136/71 (92) 96 98.1 11/21/17 21:00 Room Air 11/21/17 20:00 99.5 93 19 158/84 (108) 96 99.5 11/21/17 16:00 98.8 95 18 140/79 (99) 95 98.8 11/21/17 12:00 97.7 83 19 140/79 (99) 96 97.7 Intake and Output 11/21/17 11/22/17 19:00 07:00 Intake Total 1890 ml 2000 ml Balance 1890 ml 2000 ml Intake Oral 240 ml 240 ml IV Total 1650 ml 1760 ml # Voids 4 # Bowel Movements 1 Laboratory Tests 11/21/17 13:05: Total Protein (PEP) [Pending], Albumin (PEP) [Pending], Globulin (PEP) [Pending] , Albumin/Globulin Ratio [Pending], Owyyh-4-Lxiafa[place]i [Pending], Alpha-2- Globulins [Pending], Beta Globulins [Pending], Beta Gamma Globulin [Pending], PEP Abnormal Protein Bands [Pending], Protein Electrophoresis Interpret [Pending ], Angiotensin Converting Enzyme [Pending], Carcinoembryonic Antigen [Pending], CA 15-3 Antigen [Pending], CA 27.29 [Pending], Immunoglobulin [place]/Lambda Ratio [Pending], [place] Light Chain Analysis [Pending], Lambda Light Chain Analysis [Pending], TB Test (T-Spot) [Pending], TB Test Nil Control (T-Spot) [ Pending], TB Test Panel A (T-Spot) [Pending], TB Test Panel B (T-Spot) [Pending] , TB Test Positive Control (T-Spot) [Pending] 11/22/17 05:50: Albumin/Globulin Ratio 0.7L, White Blood Count 8.9, Red Blood Count 3.61L, Hemoglobin 9.6L, Hematocrit 28.0L, Mean Corpuscular Volume 78L, Mean Corpuscular Hemoglobin 26.7L, Mean Corpuscular Hemoglobin Concent 34.4, Red Cell Distribution Width 10.2L, Platelet Count 246, Mean Platelet Volume 5.9L, Neutrophils (%) (Auto) 74.1, Lymphocytes (%) (Auto) 15.3L, Monocytes (%) (Auto) 6.9, Eosinophils (%) (Auto) 3.4H, Basophils (%) (Auto) 0.4, Sodium Level 143, Potassium Level 3.4L, Chloride Level 110H, Carbon Dioxide Level 23, Anion Gap 10 , Blood Urea Nitrogen 18, Creatinine 1.6H, Estimat Glomerular Filtration Rate 32.6, Glucose Level 90, Uric Acid 4.5, Calcium Level 8.9, Phosphorus Level 2.6, Magnesium Level 1.8, Total Bilirubin 0.2, Aspartate Amino Transf (AST/SGOT) 51H , Alanine Aminotransferase (ALT/SGPT) 43, Alkaline Phosphatase 235H, Total Protein 6.7, Albumin 2.7L, Globulin 4.0 Height (Feet): 5 Height (Inches): 2.00 Weight (Pounds): 143 General Appearance: no apparent distress Victor Hugo Ozuna MD Nov 22, 2017 11:40
[2017-11-22 12:00] VITALS: BP 139/60
--- NOTE | 2017-11-22 13:27 | General Progress Note ---
Assessment/Plan Assessment/Plan Problem List: (1) Hyperphosphatemia ICD Codes: E83.39 - Other disorders of phosphorus metabolism SNOMED: 93829520 (2) Leukocytosis ICD Codes: D72.829 - Elevated white blood cell count, unspecified SNOMED: 677377624, 487839105 (3) UTI (urinary tract infection) ICD Codes: N39.0 - Urinary tract infection, site not specified SNOMED: 33781927 (4) Renal failure ICD Codes: N19 - Unspecified kidney failure SNOMED: 20092496 (5) Hypercalcemia ICD Codes: E83.52 - Hypercalcemia SNOMED: 81965614 (6) Bone pain ICD Codes: M89.8X9 - Other specified disorders of bone, unspecified site SNOMED: 95966437 (7) Intractable nausea and vomiting ICD Codes: R11.2 - Nausea with vomiting, unspecified SNOMED: 654779074 Qualifiers: Qualified Codes: R11.2 - Nausea with vomiting, unspecified (8) h/o breast cancer s/p double mastectomy, in remission (9) Generalized weakness ICD Codes: R53.1 - Weakness SNOMED: 43958207 (10) Lung nodule ICD Codes: R91.1 - Solitary pulmonary nodule SNOMED: 427750847 Status: stable, progressing Assessment/Plan Assessment: 62 y/o female with a h/o breast cancer s/p mastectomy now in remission presented with 2 days of intractable n/v and generalized weakness. Found to be hypercalcemic and hyperphosphatemic. Will workup for primary vs. secondary hypercalcemia. - Endocrinology, nephrology, and general surgery consulted - Oncology, Dr. Amador, metastatic dz suspected w/ pos bone scan - Pulmonology consulted - CT a/p/chest w/o contrast -> reviewed c/w metastatic dz - NM bone scan whole body -> c/w diffuse mets - elevated alk phos due to osseus mets - f/u serum light chains, spep, upep, CEA, CA 15-3, CA 27-29, MIGUEL test - IVF - Trend Cr - F/u renal U/S -- normal - F/u PTH and other lab markers - Trend ionized Ca and phosphorus - s/p pamidronate - Continue calcitonin - Trend WBC - Continue IV ceftriaxone - F/u urine cx - F/u CXR -- 12 mm left lung nodule - Check uric acid - PT/OT eval - Pain control and supportive care - F/u MRI of right hip from outside hospital D/w PCP: Dr. Reese [phone] DVT Prophylaxis: SCD, HSQ Code Status: Full Hospital Classification Declaration: Based on this initial evaluation, and depending on the patient's clinical course, I anticipate that this patient will require hospitalization for 3-4 days for intractable n/v, hypercalcemic workup and close respiratory/hemodynamic monitoring. Disposition: Once the patient is stable to leave the hospital, I anticipate the patient will likely be discharged to the following environment: home with HH vs SNF I spent 41 minutes on this patient's case, and 28 minutes were dedicated to counseling and/or care coordination. Discussed with patient/family, nursing staff, SW/CM, and all consultants involved regarding clinical status, treatment course, and disposition planning. Time of note may not reflect time of encounter. Subjective Date patient seen: Nov 22, 2017 Allergies: Coded Allergies: CODEINE (Verified Allergy, Unknown, 11/19/17) IBUPROFEN (Verified Allergy, Unknown, 11/18/17) tongue swelling IODINE (Verified Allergy, Unknown, 11/19/17) Patient reports that she does not have allergy to Iodine. NAPROXEN (Verified Allergy, Unknown, 11/18/17) tongue swelling Subjective afeb and hds bone scan c/w diffuse mets ca normalized on tx workup pending awaiting heme onc eval Objective Last 24 Hour Vital Signs Date Time Temp Pulse Resp B/P (MAP) Pulse Ox O2 Delivery O2 Flow Rate FiO2 11/22/17 12:00 97.4 87 20 139/60 (86) 97 97.4 11/22/17 09:00 Room Air 11/22/17 09:00 77 140/80 11/22/17 08:00 99.5 77 21 143/80 (101) 96 99.5 11/22/17 04:00 97.6 81 19 140/82 (101) 96 97.6 11/22/17 00:00 98.1 81 19 136/71 (92) 96 98.1 11/21/17 21:00 Room Air 11/21/17 20:00 99.5 93 19 158/84 (108) 96 99.5 11/21/17 16:00 98.8 95 18 140/79 (99) 95 98.8 Intake and Output 11/21/17 11/22/17 19:00 07:00 Intake Total 1890 ml 2000 ml Balance 1890 ml 2000 ml Intake Oral 240 ml 240 ml IV Total 1650 ml 1760 ml # Voids 4 # Bowel Movements 1 Laboratory Tests 11/22/17 05:50: White Blood Count 8.9, Red Blood Count 3.61L, Hemoglobin 9.6L, Hematocrit 28.0L , Mean Corpuscular Volume 78L, Mean Corpuscular Hemoglobin 26.7L, Mean Corpuscular Hemoglobin Concent 34.4, Red Cell Distribution Width 10.2L, Platelet Count 246, Mean Platelet Volume 5.9L, Neutrophils (%) (Auto) 74.1, Lymphocytes (%) (Auto) 15.3L, Monocytes (%) (Auto) 6.9, Eosinophils (%) (Auto) 3.4H, Basophils (%) (Auto) 0.4, Sodium Level 143, Potassium Level 3.4L, Chloride Level 110H, Carbon Dioxide Level 23, Anion Gap 10, Blood Urea Nitrogen 18, Creatinine 1.6H, Estimat Glomerular Filtration Rate 32.6, Glucose Level 90, Uric Acid 4.5, Calcium Level 8.9, Phosphorus Level 2.6, Magnesium Level 1.8, Total Bilirubin 0.2, Aspartate Amino Transf (AST/SGOT) 51H, Alanine Aminotransferase (ALT/SGPT) 43, Alkaline Phosphatase 235H, Total Protein 6.7, Albumin 2.7L, Globulin 4.0, Albumin/Globulin Ratio 0.7L IMAGING: Bone scan 11/21 - Impression: Numerous foci of increased uptake throughout the primarily axial skeleton, as described. Findings are consistent with multiple osseous metastases CT chest w/o Con 11/21 - Impression: . Numerous thoracic osteolytic lesions, as described. There are associated pathologic fractures of multiple ribs. Very mild pathologic compression fractures of multiple thoracic vertebral segments are also noted. No evidence of primary pulmonary malignancy or pulmonary metastatic process Evidence of prior left breast surgery-correlate with surgical history Trace bilateral pleural effusions Posterior dependent and basilar pulmonary atelectatic changes Nonspecific infiltration of the mediastinal fat the prevascular space Height (Feet): 5 Height (Inches): 2.00 Weight (Pounds): 143 General Appearance: alert EENT: PERRL/EOMI Neck: non-tender, supple, normal inspection Cardiovascular: normal peripheral pulses, regular rhythm, regularly irregular, no gallop/murmur, no JVD Respiratory/Chest: lungs clear, no accessory muscle use Abdomen: normal bowel sounds, non tender, soft, no organomegaly, no mass Neurologic: launderer hand II-XII grossly normal Jamel Trivedi MD Nov 22, 2017 13:27
[2017-11-22 16:00] VITALS: BP 158/84
--- NOTE | 2017-11-22 16:33 | Diagnostic Imaging Report ---
EXAM: XR Left Femur, 2 Views CLINICAL HISTORY: MASS TECHNIQUE: Frontal and lateral views of the left femur. COMPARISON: Right femur x-rays dated 11/22/17 FINDINGS: Bones/joints: Scattered lytic lucencies with endosteal scalloping, noted throughout the proximal and mid femoral diaphysis. No fracture or dislocation seen. No periosteal reaction noted. Soft tissues: Radiodense clips project over the left inguinal region. Vasculature: Subcentimeter radiodense phleboliths in the left pelvis. IMPRESSION: 1. Scattered lytic lucencies with endosteal scalloping, noted throughout the proximal and mid femoral diaphysis. These are nonspecific and are concerning for metastatic lesions. 2. No fracture or dislocation seen.
--- NOTE | 2017-11-22 16:35 | Diagnostic Imaging Report ---
EXAM: XR Right Femur, 2 Views CLINICAL HISTORY: MASS TECHNIQUE: Frontal and lateral views of the right femur. COMPARISON: X-rays of the contralateral left femur dated 11/22/17 FINDINGS: Bones/joints: Ill-defined sclerotic lucencies with endosteal scalloping noted in the proximal femoral diaphysis. Lytic lesions also noted within the right acetabulum and inferior pubic ramus. No fracture or dislocation is seen. Mild degenerative changes in the right SI joint. Soft tissues: Surgical clips project over the right inguinal region. IMPRESSION: 1. Ill-defined sclerotic lucencies with endosteal scalloping noted in the proximal femoral diaphysis. Lytic lesions also noted within the right acetabulum and inferior pubic ramus. This raises concern for underlying osteolytic metastatic disease. 2. No fracture or dislocation is seen.
[2017-11-22] MEDS ORDERED: Tubing IV Secondary IV ONE (17:51)
--- NOTE | 2017-11-22 19:15 | Diagnostic Imaging Report ---
EXAM: XR Bilateral Hips With Pelvis When Performed, 3 or 4 Views CLINICAL HISTORY: MASS TECHNIQUE: Three or four views of the bilateral hips, with pelvis when performed. COMPARISON: CT of the abdomen and pelvis dated 11/20/17 FINDINGS: Bones/joints: Multiple scattered lucencies in bilateral pelvic bones and bilateral proximal femurs, concerning for lytic metastases. Mild degenerative narrowing in bilateral hip joints. No acute fracture or dislocation is seen. Degenerative changes in bilateral SI joints. Soft tissues: Radiodense clips in bilateral inguinal regions. Vasculature: Subcentimeter radiodense phleboliths in the pelvis. IMPRESSION: 1. Multiple scattered lucencies in bilateral pelvic bones and bilateral proximal femurs, concerning for osteolytic metastases. No fracture or dislocation seen. 2. Mild degenerative changes in bilateral hip and SI joints.
[2017-11-22] MEDS ORDERED: HYDROmorphone 4mg tab ORAL PRN (19:30)
[2017-11-22] MEDS ORDERED: HYDROmorphone 2mg tab ORAL PRN (19:30)
[2017-11-22 20:00] VITALS: BP 154/88
[2017-11-22] MEDS ORDERED: Gadavist 7.5mMol/7.5ml vial IV PRN (21:00)
[2017-11-22] MEDS: cefTRIAXone 1 GM in D5W 110 ML IVPB SCH (21:22)
[2017-11-23] VITALS: BP 158/80
[2017-11-23 04:00] VITALS: BP 158/83
--- NOTE | 2017-11-23 04:30 | Geriatric Medicine Prog Note ---
DATE: 11/22/2017 NOTE: "POOR AUDIO QUALITY" SUBJECTIVE: hypercalcemia . OBJECTIVE: VITAL SIGNS: Blood pressure , pulse 64, respiratory rate 18, and temperature 97 degrees. RESPIRATORY: Clear. CVS: Regular. LABORATORY DATA: Calcium 2.7 . . Kai Carrillo M.D. DR: FRANCIS JOB#: [id number] CC:
[2017-11-23 05:54] LABS: BASOPHILS % (AUTO) 0.4 % (0.0-2.0); EOSINOPHILS % (AUTO) 3.4 % (0.0-3.0); HEMATOCRIT 27.7 % (37.0-47.0); HEMOGLOBIN 9.6 G/DL (12.0-16.0); LYMPHOCYTES % (AUTO) 14.9 % (20.0-45.0); MEAN CORPUSCULAR VOLUME 77 FL (80-99); MONOCYTES % (AUTO) 6.2 % (1.0-10.0); NEUTROPHILS % (AUTO) 75.1 % (45.0-75.0); PLATELET COUNT 256 K/UL (150-450); RED BLOOD COUNT 3.58 M/UL (4.20-5.40); RED CELL DISTRIBUTION WIDTH 10.4 % (11.6-14.8); WHITE BLOOD COUNT 9.8 K/UL (4.8-10.8)
[2017-11-23 06:34] LABS: ALANINE AMINOTRANSFERASE 46 U/L (12-78); ALBUMIN/GLOBULIN RATIO 0.7 (1.0-2.7); ALKALINE PHOSPHATASE 247 U/L (46-116); ANION GAP 12 mmol/L (5-15); ASPARTATE AMINO TRANSFERASE 47 U/L (15-37); BILIRUBIN,TOTAL 0.3 MG/DL (0.2-1.0); BLOOD UREA NITROGEN 13 mg/dL (7-18); CALCIUM 8.9 MG/DL (8.5-10.1); CARBON DIOXIDE 23 MMOL/L (21-32); CHLORIDE 108 MMOL/L (98-107); CREATININE 1.3 MG/DL (0.55-1.30); PHOSPHORUS 1.9 MG/DL (2.5-4.9); POTASSIUM 2.8 MMOL/L (3.5-5.1); SODIUM 143 MMOL/L (136-145)
[2017-11-23 08:00] VITALS: BP 132/79
[2017-11-23] MEDS: Docusate 100mg cap ORAL SCH ×3 (09:00→17:52)
[2017-11-23] MEDS ORDERED: Lidocaine 1% Plain 30 ml INJ PRN (09:00)
[2017-11-23] MEDS ORDERED: ALPRAZolam 0.5mg tab ORAL SCH (09:00)
[2017-11-23] MEDS: Heparin 5000 units/ml inj SUBQ SCH ×2 (09:26→21:26)
[2017-11-23 09:41] LABS: FERRITIN 638 NG/ML (8-388)
[2017-11-23 09:42] LABS: IRON 61 ug/dL (50-175)
--- NOTE | 2017-11-23 11:22 | Nephrology Progress Note ---
Assessment/Plan Problem List: (1) Renal failure Assessment: acute - resolved (2) Hypercalcemia Assessment: ? Vit D toxicity ? Bone mets (3) Intractable nausea and vomiting (4) Lung nodule Assessment: r/o mets (5) h/o breast cancer s/p double mastectomy, in remission Assessment: BONE SCAN AND CT INDICATIVE OF BONE METS Assessment appears stable Plan K and Mag and Phos supplement as needed lower rate of Hydration correct electrolytes waiting PTH and Vit D level monitor Ca Alb Phos Mag Lytes ? DC for OP fu? Subjective ROS Limited/Unobtainable: No Constitutional: Reports: malaise, weakness Objective Objective Last 24 Hour Vital Signs Date Time Temp Pulse Resp B/P (MAP) Pulse Ox O2 Delivery O2 Flow Rate FiO2 11/23/17 09:26 92 132/79 11/23/17 08:45 Room Air 11/23/17 08:00 98.6 92 19 132/79 (96) 96 98.6 11/23/17 04:00 98.6 82 19 158/83 (108) 96 98.6 11/23/17 00:00 98.2 78 19 158/80 (106) 97 98.2 11/22/17 21:00 Room Air 11/22/17 20:00 98.7 84 19 154/88 (110) 95 98.7 11/22/17 16:00 98.2 98 20 158/84 (108) 97 98.2 11/22/17 12:00 97.4 87 20 139/60 (86) 97 97.4 Intake and Output 11/22/17 11/23/17 19:00 07:00 Intake Total 1560 ml 1150 ml Output Total 100 ml Balance 1460 ml 1150 ml Intake Oral 960 ml 250 ml IV Total 600 ml 900 ml Output Urine Total 100 ml # Voids 1 3 # Bowel Movements 1 1 Laboratory Tests 11/22/17 16:49: Urine Total Volume 24 Hours [Pending], Urine Creatinine 24 Hour [Pending], Urine Total Protein Timed [Pending], Urine Protein/Creatinine Ratio [Pending], Urine Albumin (%) [Pending], Urine Giybg-0-Jsqknnhbv (%) [Pending], Urine Alpha- 2-Globulins (%) [Pending], Urine Beta-Globulin (%) [Pending], Urine Gamma Globulin (%) [Pending], Urine Protein Electrophoresis Intrp [Pending] 11/23/17 05:20: White Blood Count 9.8, Red Blood Count 3.58L, Hemoglobin 9.6L, Hematocrit 27.7L , Mean Corpuscular Volume 77L, Mean Corpuscular Hemoglobin 26.8L, Mean Corpuscular Hemoglobin Concent 34.6, Red Cell Distribution Width 10.4L, Platelet Count 256, Mean Platelet Volume 5.9L, Neutrophils (%) (Auto) 75.1H, Lymphocytes (%) (Auto) 14.9L, Monocytes (%) (Auto) 6.2, Eosinophils (%) (Auto) 3.4H, Basophils (%) (Auto) 0.4, Sodium Level 143, Potassium Level 2.8L, Chloride Level 108H, Carbon Dioxide Level 23, Anion Gap 12, Blood Urea Nitrogen 13, Creatinine 1.3, Estimat Glomerular Filtration Rate 41.5, Glucose Level 103, Uric Acid 3.6, Calcium Level 8.9, Phosphorus Level 1.9L, Magnesium Level 1.4L, Iron Level 61, Ferritin 638H, Total Bilirubin 0.3, Aspartate Amino Transf (AST/ SGOT) 47H, Alanine Aminotransferase (ALT/SGPT) 46, Alkaline Phosphatase 247H, Total Protein 7.1, Albumin 3.0L, Globulin 4.1, Albumin/Globulin Ratio 0.7L 11/23/17 09:42: Stool Occult Blood [Pending] Height (Feet): 5 Height (Inches): 2.00 Weight (Pounds): 143 General Appearance: no apparent distress Objective no change Victor Hugo Ozuna MD Nov 23, 2017 11:22
--- NOTE | 2017-11-23 11:40 | General Surgery Progress Note ---
General Surgery-Progress Note Subjective Additional Comments no acute events. plain films noted. obtaining MRI Objective Last 24 Hour Vital Signs Date Time Temp Pulse Resp B/P (MAP) Pulse Ox O2 Delivery O2 Flow Rate FiO2 11/23/17 09:26 92 132/79 11/23/17 08:45 Room Air 11/23/17 08:00 98.6 92 19 132/79 (96) 96 98.6 11/23/17 04:00 98.6 82 19 158/83 (108) 96 98.6 11/23/17 00:00 98.2 78 19 158/80 (106) 97 98.2 11/22/17 21:00 Room Air 11/22/17 20:00 98.7 84 19 154/88 (110) 95 98.7 11/22/17 16:00 98.2 98 20 158/84 (108) 97 98.2 11/22/17 12:00 97.4 87 20 139/60 (86) 97 97.4 I&O Intake and Output 11/22/17 11/23/17 19:00 07:00 Intake Total 1560 ml 1150 ml Output Total 100 ml Balance 1460 ml 1150 ml Intake Oral 960 ml 250 ml IV Total 600 ml 900 ml Output Urine Total 100 ml # Voids 1 3 # Bowel Movements 1 1 Drains: none Cardiovascular: RSR Respiratory: clear Abdomen: soft, non-tender, present bowel sounds Extremities: no cyanosis Laboratory Tests Test 11/22/17 16:49 11/23/17 05:20 11/23/17 09:42 Urine Total Volume 24 Hours Pending Urine Creatinine 24 Hour Pending Urine Total Protein Timed Pending Urine Protein/Creatinine Ratio Pending Urine Albumin (%) Pending Urine Pigik-8-Eqeltxrhw (%) Pending Urine Lrhgv-1-Nxeldcryo (%) Pending Urine Beta-Globulin (%) Pending Urine Gamma Globulin (%) Pending Urine Protein Electrophoresis Intrp Pending White Blood Count 9.8 K/UL (4.8-10.8) Red Blood Count 3.58 M/UL (4.20-5.40) L Hemoglobin 9.6 G/DL (12.0-16.0) L Hematocrit 27.7 % (37.0-47.0) L Mean Corpuscular Volume 77 FL (80-99) L Mean Corpuscular Hemoglobin 26.8 PG (27.0-31.0) L Mean Corpuscular Hemoglobin Concent 34.6 G/DL (32.0-36.0) Red Cell Distribution Width 10.4 % (11.6-14.8) L Platelet Count 256 K/UL (150-450) Mean Platelet Volume 5.9 FL (6.5-10.1) L Neutrophils (%) (Auto) 75.1 % (45.0-75.0) H Lymphocytes (%) (Auto) 14.9 % (20.0-45.0) L Monocytes (%) (Auto) 6.2 % (1.0-10.0) Eosinophils (%) (Auto) 3.4 % (0.0-3.0) H Basophils (%) (Auto) 0.4 % (0.0-2.0) Sodium Level 143 MMOL/L (136-145) Potassium Level 2.8 MMOL/L (3.5-5.1) L Chloride Level 108 MMOL/L (98-107) H Carbon Dioxide Level 23 MMOL/L (21-32) Anion Gap 12 mmol/L (5-15) Blood Urea Nitrogen 13 mg/dL (7-18) Creatinine 1.3 MG/DL (0.55-1.30) Estimat Glomerular Filtration Rate 41.5 mL/min (>60) Glucose Level 103 MG/DL (74-106) Uric Acid 3.6 MG/DL (2.6-7.2) Calcium Level 8.9 MG/DL (8.5-10.1) Phosphorus Level 1.9 MG/DL (2.5-4.9) L Magnesium Level 1.4 MG/DL (1.8-2.4) L Iron Level 61 ug/dL (50-175) Ferritin 638 NG/ML (8-388) H Total Bilirubin 0.3 MG/DL (0.2-1.0) Aspartate Amino Transf (AST/SGOT) 47 U/L (15-37) H Alanine Aminotransferase (ALT/SGPT) 46 U/L (12-78) Alkaline Phosphatase 247 U/L (46-116) H Total Protein 7.1 G/DL (6.4-8.2) Albumin 3.0 G/DL (3.4-5.0) L Globulin 4.1 g/dL Albumin/Globulin Ratio 0.7 (1.0-2.7) L Stool Occult Blood Pending Plan Problems: (1) Intractable nausea and vomiting Assessment & Plan: likely related to hypercalcemia and unlikely obstructive KUB reviewed. okay okay for diet (2) Hypercalcemia Assessment & Plan: likely primary hypercalcemia. etiology work up -pending remaining labs -will follow as information available -fluids, Rx as written -CT reviewed -bone scan reviewed - Numerous foci of increased uptake throughout the primarily axial skeleton, as described. Findings are consistent with multiple osseous metastases -?oncology input. ?multiple myeloma -okay for diet thank you for this consultation will follow with you Elfego Webb Nov 23, 2017 11:40
[2017-11-23 12:00] VITALS: BP 147/80
--- NOTE | 2017-11-23 12:17 | Diagnostic Imaging Report ---
EXAM: MR Head Without and With Intravenous Contrast CLINICAL HISTORY: History of breast cancer, with lower extremity weakness and pain. Evaluate for cerebral metastasis. TECHNIQUE: Magnetic resonance images of the head/brain without and with intravenous contrast in multiple planes. COMPARISON: No relevant prior studies available. FINDINGS: Limitations: Exam is degraded by patient motion artifact, especially the postcontrast T1 coronal and axial sequences. Brain: Scattered T2/FLAIR hyperintensities in the periventricular and bilateral deep white matter regions, likely related to chronic small vessel disease changes. No enhancing brain lesions to suggest cerebral metastases. No evidence of intracranial hemorrhage. No midline shift or cerebral herniation. Brainstem: Unremarkable. No enhancing lesions seen. Ventricles: Unremarkable. No ventriculomegaly. Bones/joints: There is diffuse medullary expansion seen within the calvaria bilaterally, right greater than left, with scattered enhancing focal nodular calvarial lesions bilaterally, most prominent in the right frontal bone and in the posterior midline occiput, concerning for bony metastases. Sinuses: Unremarkable as visualized. No acute sinusitis. Mastoid air cells: Unremarkable as visualized. No mastoid effusion. Orbits: Unremarkable as visualized. IMPRESSION: 1. 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 2. Scattered T2/FLAIR hyperintensities in the periventricular and bilateral deep white matter regions, likely related to chronic small vessel disease changes. 3. No enhancing brain lesions to suggest cerebral metastases.
--- NOTE | 2017-11-23 12:24 | Diagnostic Imaging Report ---
EXAM: MR Cervical Spine Without Intravenous Contrast CLINICAL HISTORY: History of left breast cancer, presenting with lower extremity weakness. Eval for metastases. TECHNIQUE: Magnetic resonance images of the cervical spine without intravenous contrast in multiple planes. COMPARISON: No relevant prior studies available. FINDINGS: Vertebrae: The cervical vertebral body heights are preserved without evidence of acute fracture or malalignment. Marrow: Abnormal marrow signal with decreased T1 weighted and increased STIR signal intensity and mild marrow expansion noted within multiple cervical vertebrae, including C2, C5, and the visualized upper thoracic vertebrae. Spinal cord: See below. Soft tissues: Unremarkable. Tubes, lines and devices: Central linear T2 hyperintense signal is seen in the cervical cord from C4-C7 (series 5 image 7) which may be related to a pulsation artifact versus a subtle syrinx. DISCS/SPINAL CANAL/NEURAL FORAMINA: C2-C3: Unremarkable. No significant disc disease. No stenosis. C3-C4: Disc desiccation with a broad-based posterior disc bulge causing mild to moderate central canal stenosis without cord flattening. Associated mild bilateral foraminal stenosis. C4-C5: Disc desiccation with mild left articular disc bulge. No significant central canal stenosis. Mild left neural foraminal stenosis. C5-C6: Disc desiccation with a disc osteophyte complex resulting in mild to moderate central canal stenosis and moderate bilateral neural foraminal stenosis. No cord flattening. C6-C7: Disc desiccation with disc ossified complex and broad-based disc bulge causing mild to moderate central canal stenosis and mild bilateral foraminal stenosis. No cord flattening. C7-T1: Unremarkable. No significant disc disease. No stenosis. IMPRESSION: 1. Abnormal marrow signal concerning for multiple metastatic lesions throughout the cervical and upper thoracic spine. No acute cervical spine fracture or malalignment. 2. Central linear T2 hyperintense signal is seen in the cervical cord from C4-C7 (series 5 image 7) which may be related to a pulsation artifact versus a subtle syrinx. Cervical cord otherwise appears unremarkable. 3. Multilevel cervical spondylosis with disc osteophyte complexes causing onga-cn-coxjdmyk central canal stenosis at C3-4, C5-6, and C6-7. Moderate bilateral neural foraminal narrowing at C5-6 and mild bilateral neural foraminal narrowing at C3-4 and C6-7.
[2017-11-23] MEDS ORDERED: Potassium Phosphate 30 MM in NS 275 ML IV SCH (12:30)
--- NOTE | 2017-11-23 12:31 | Diagnostic Imaging Report ---
EXAM: MR Thoracic Spine Without Intravenous Contrast CLINICAL HISTORY: History of breast cancer. Lower extremity weakness and pain. Evaluate for metastases. TECHNIQUE: Magnetic resonance images of the thoracic spine without intravenous contrast in multiple planes. COMPARISON: No relevant prior studies available. FINDINGS: Vertebrae: Innumerable T1 hypointense and STIR hyperintense metastatic lesions throughout all the visualized thoracic vertebral bodies. No visible fracture. Normal alignment. Discs/spinal canal/neural foramina: Small posterior disc bulge at T6-7 impinges upon the thecal sac and results in mild central canal stenosis at this level without significant cord flattening or cord signal change. No significant foraminal stenosis is identified. Spinal cord: Thoracic cord has normal signal throughout without abnormal flattening. Soft tissues: Unremarkable. IMPRESSION: 1. Multiple metastatic lesions throughout all the thoracic vertebrae without evidence of acute fracture or malalignment. 2. Small posterior disc bulge at T6-7 impinges upon the thecal sac and results in mild central canal stenosis at this level without significant cord flattening or cord signal change.
--- NOTE | 2017-11-23 12:37 | Diagnostic Imaging Report ---
EXAM: MR Lumbar Spine Without Intravenous Contrast CLINICAL HISTORY: MASS TECHNIQUE: Magnetic resonance images of the lumbar spine without intravenous contrast in multiple planes. COMPARISON: No relevant prior studies available. FINDINGS: Vertebrae: Lumbar vertebral body heights are preserved without evidence of acute fracture or malalignment. Marrow: Abnormal marrow signal with innumerable metastatic lesions seen throughout all visualized lumbar vertebral bodies. Additionally, expansile metastatic lesion is seen involving S2 and S3. Spinal cord: The conus terminates at L1. Sacrum/coccyx: Multiple sacral and bilateral iliac bone osseous metastatic lesions also seen. Soft tissues: Unremarkable. DISCS/SPINAL CANAL/NEURAL FORAMINA: L1-L2: Unremarkable. No significant disc disease. No stenosis. L2-L3: Unremarkable. No significant disc disease. No stenosis. L3-L4: Severe bilateral facet hypertrophy with ligament of flavum hypertrophy results in moderate to severe central canal stenosis, moderate right foraminal stenosis, and mild left foraminal stenosis. L4-L5: Severe bilateral facet hypertrophy with ligamentum flavum hypertrophy and a small posterior disc bulge resulting in severe central canal stenosis, moderate to severe right foraminal stenosis, and mild left foraminal stenosis. L5-S1: Bilateral facet arthrosis and mild broad-based disc bulge with ligamentum flavum hypertrophy causing moderate central canal stenosis at this level. Associated mild bilateral foraminal stenosis. IMPRESSION: 1. Abnormal marrow signal with innumerable metastatic lesions seen throughout all visualized lumbar vertebral bodies. Additionally, expansile metastatic lesion is seen involving S2 and S3. 2. Multiple sacral and bilateral iliac bone osseous metastatic lesions also seen. 3. Lumbar vertebral body heights are preserved without evidence of acute fracture or malalignment. 4. L4-L5 bilateral facet hypertrophy with ligamentum flavum hypertrophy and a small posterior disc bulge resulting in severe central canal stenosis, moderate to severe right foraminal stenosis, and mild left foraminal stenosis. 5. L3-L4 bilateral facet hypertrophy with ligament of flavum hypertrophy results in moderate to severe central canal stenosis, moderate right foraminal stenosis, and mild left foraminal stenosis. 6. L5-S1 Bilateral facet arthrosis and mild broad-based disc bulge with ligamentum flavum hypertrophy causing moderate central canal stenosis at this level. Associated mild bilateral foraminal stenosis.
[2017-11-23 16:00] VITALS: BP 125/65
--- NOTE | 2017-11-23 16:23 | General Progress Note ---
Assessment/Plan Assessment/Plan Problem List: (1) Hyperphosphatemia ICD Codes: E83.39 - Other disorders of phosphorus metabolism SNOMED: 07915081 (2) Leukocytosis ICD Codes: D72.829 - Elevated white blood cell count, unspecified SNOMED: 281027933, 077218509 (3) UTI (urinary tract infection) ICD Codes: N39.0 - Urinary tract infection, site not specified SNOMED: 54184809 (4) Renal failure ICD Codes: N19 - Unspecified kidney failure SNOMED: 99752963 (5) Hypercalcemia ICD Codes: E83.52 - Hypercalcemia SNOMED: 73625367 (6) Bone pain ICD Codes: M89.8X9 - Other specified disorders of bone, unspecified site SNOMED: 74429803 (7) Intractable nausea and vomiting ICD Codes: R11.2 - Nausea with vomiting, unspecified SNOMED: 980227313 Qualifiers: Qualified Codes: R11.2 - Nausea with vomiting, unspecified (8) h/o breast cancer s/p double mastectomy, in remission (9) Generalized weakness ICD Codes: R53.1 - Weakness SNOMED: 36521430 (10) Lung nodule ICD Codes: R91.1 - Solitary pulmonary nodule SNOMED: 775324041 Status: stable, progressing Assessment/Plan Assessment: 62 y/o female with a h/o breast cancer s/p mastectomy now in remission presented with 2 days of intractable n/v and generalized weakness. Found to be hypercalcemic and hyperphosphatemic. Diffuse bony mets noted on CT - Endocrinology, nephrology, and general surgery consulted - Oncology, Dr. Amador, metastatic dz suspected w/ pos bone scan - Pulmonology consulted - CT guided bx pelvic bone - FOBT neg - MRI brain, C/T/L spine w/ diffuse mets - XR hip and femur w/ diffuse mets - CT a/p/chest w/o contrast -> reviewed c/w metastatic dz - NM bone scan whole body -> c/w diffuse mets - elevated alk phos due to osseus mets - f/u serum light chains, spep, upep, CEA, CA 15-3, CA 27-29, MIGUEL test - IVF - Trend Cr -> normalized - F/u renal U/S -- normal - F/u PTH and other lab markers - Trend ionized Ca and phosphorus - s/p pamidronate - Continue calcitonin - Trend WBC - Continue IV ceftriaxone - F/u urine cx - F/u CXR -- 12 mm left lung nodule - Check uric acid - PT/OT eval - Pain control and supportive care - F/u MRI of right hip from outside hospital D/w PCP: Dr. Reese [phone] DVT Prophylaxis: SCD, HSQ Code Status: Full Hospital Classification Declaration: Based on this initial evaluation, and depending on the patient's clinical course, I anticipate that this patient will require hospitalization for 3-4 days for intractable n/v, hypercalcemic workup and close respiratory/hemodynamic monitoring. Disposition: Once the patient is stable to leave the hospital, I anticipate the patient will likely be discharged to the following environment: home with HH vs SNF I spent 41 minutes on this patient's case, and 28 minutes were dedicated to counseling and/or care coordination. Discussed with patient/family, nursing staff, SW/CM, and all consultants involved regarding clinical status, treatment course, and disposition planning. Time of note may not reflect time of encounter. Subjective Date patient seen: Nov 23, 2017 Allergies: Coded Allergies: CODEINE (Verified Allergy, Unknown, 11/19/17) IBUPROFEN (Verified Allergy, Unknown, 11/18/17) tongue swelling IODINE (Verified Allergy, Unknown, 11/19/17) Patient reports that she does not have allergy to Iodine. NAPROXEN (Verified Allergy, Unknown, 11/18/17) tongue swelling Subjective afeb and hds planning ct guided bx for tissue dx Objective Last 24 Hour Vital Signs Date Time Temp Pulse Resp B/P (MAP) Pulse Ox O2 Delivery O2 Flow Rate FiO2 11/23/17 12:00 98.6 92 20 147/80 (102) 97 98.6 11/23/17 09:26 92 132/79 11/23/17 08:45 Room Air 11/23/17 08:00 98.6 92 19 132/79 (96) 96 98.6 11/23/17 04:00 98.6 82 19 158/83 (108) 96 98.6 11/23/17 00:00 98.2 78 19 158/80 (106) 97 98.2 11/22/17 21:00 Room Air 11/22/17 20:00 98.7 84 19 154/88 (110) 95 98.7 Intake and Output 11/22/17 11/23/17 19:00 07:00 Intake Total 1560 ml 1150 ml Output Total 100 ml Balance 1460 ml 1150 ml Intake Oral 960 ml 250 ml IV Total 600 ml 900 ml Output Urine Total 100 ml # Voids 1 3 # Bowel Movements 1 1 Laboratory Tests 11/22/17 16:49: Urine Total Volume 24 Hours [Pending], Urine Creatinine 24 Hour [Pending], Urine Total Protein Timed [Pending], Urine Protein/Creatinine Ratio [Pending], Urine Albumin (%) [Pending], Urine [id number]-1-Ytumivzcd (%) [Pending], Urine Alpha- 2-Globulins (%) [Pending], Urine Beta-Globulin (%) [Pending], Urine Gamma Globulin (%) [Pending], Urine Protein Electrophoresis Intrp [Pending] 11/23/17 05:20: White Blood Count 9.8, Red Blood Count 3.58L, Hemoglobin 9.6L, Hematocrit 27.7L , Mean Corpuscular Volume 77L, Mean Corpuscular Hemoglobin 26.8L, Mean Corpuscular Hemoglobin Concent 34.6, Red Cell Distribution Width 10.4L, Platelet Count 256, Mean Platelet Volume 5.9L, Neutrophils (%) (Auto) 75.1H, Lymphocytes (%) (Auto) 14.9L, Monocytes (%) (Auto) 6.2, Eosinophils (%) (Auto) 3.4H, Basophils (%) (Auto) 0.4, Sodium Level 143, Potassium Level 2.8L, Chloride Level 108H, Carbon Dioxide Level 23, Anion Gap 12, Blood Urea Nitrogen 13, Creatinine 1.3, Estimat Glomerular Filtration Rate 41.5, Glucose Level 103, Uric Acid 3.6, Calcium Level 8.9, Phosphorus Level 1.9L, Magnesium Level 1.4L, Iron Level 61, Ferritin 638H, Total Bilirubin 0.3, Aspartate Amino Transf (AST/ SGOT) 47H, Alanine Aminotransferase (ALT/SGPT) 46, Alkaline Phosphatase 247H, Total Protein 7.1, Albumin 3.0L, Globulin 4.1, Albumin/Globulin Ratio 0.7L 11/23/17 09:42: Stool Occult Blood Negative Height (Feet): 5 Height (Inches): 2.00 Weight (Pounds): 143 Objective General Appearance: no apparent distress, alert EENT: PERRL/EOMI, normal ENT inspection Neck: non-tender, normal alignment, supple Cardiovascular: normal peripheral pulses, normal rate, regular rhythm Respiratory/Chest: chest wall non-tender, lungs clear, normal breath sounds Abdomen: normal bowel sounds, non tender, soft Extremities: normal range of motion, non-tender Neurologic: die designer II-XII grossly normal, no motor/sensory deficits, alert, oriented x 3 Skin: normal pigmentation, warm/dry Jamel Trivedi MD Nov 23, 2017 16:23
[2017-11-23 20:00] VITALS: BP 147/82
[2017-11-23] MEDS: cefTRIAXone 1 GM in D5W 110 ML IVPB SCH (21:25)
[2017-11-23] MEDS: TraZODone 50mg tab ORAL PRN (21:25)
[2017-11-24] VITALS: BP 138/80
[2017-11-24 04:00] VITALS: BP 140/77
[2017-11-24 08:00] VITALS: BP 150/85
--- NOTE | 2017-11-24 08:15 | Consultation ---
DATE OF CONSULTATION: 11/23/2017 HEMATOLOGY/ONCOLOGY CONSULTATION CONSULTING PHYSICIAN: Ottoniel Amador M.D. REFERRING PHYSICIAN: Faiza Washington M.D. REASON FOR CONSULTATION: Breast cancer, currently with significant hypercalcemia and bony lesions. HISTORY OF PRESENT ILLNESS: The patient is an extremely pleasant 62-year-old female with oncologic history that goes back to 1994. At that time, the patient was noted to have a right-sided breast cancer and did undergo a right-sided lumpectomy at [facility]. The patient subsequently was evaluated by her oncologist, Dr. Domenic Joshua, phone number [phone]. The patient did undergo extensive course of chemotherapy and subsequent radiation and was treated with 5 years of tamoxifen therapy. Post chemotherapy, the patient was menopause. The patient subsequently was followed up in 2010 and was noted to have right-sided inverted nipple, did undergo evaluation, and was noted to have recurrence of right-sided breast cancer. At that point, the patient decided to undergo bilateral mastectomy and oophorectomy with bilateral breast reconstruction. The patient was reevaluated by her oncologist, Dr. Domenic Joshua again and did undergo further chemotherapy. There is question whether the patient was also treated with Herceptin. Subsequently, the patient was treated with adjuvant hormonal therapy per her for approximately 3 to 5 years. The patient was in good state of health. It should be noted that the patient's mother had history of breast cancer at age 60 as well. The patient apparently is of Ashkenazi Sabian[place] descent. Towards July, the patient was in extensive health and did not have appropriate medical followup in view of her poor insurance status. Towards July 2017, the patient was noted to have bone pain in the left hip and subsequently, pain in multiple other areas including chest, back, and knees. The patient did see multiple healers to further expand coverage of physicians. Approximately one week prior to this hospitalization, the patient was noted to have significant nausea and vomiting. The patient presented to [facility] and was noted to have a calcium level of 17 with hypophosphatemia with hypermagnesemia and . The patient was treated with aggressive hydration therapy, was evaluated by Nephrology, and did undergo treatment with pamidronate. The patient had renal failure with creatinine of 3, which has subsequently had significantly improved. She was noted to have urinary tract infection and was treated with ceftriaxone as well. During the hospitalization, the patient has had extensive imaging studies including CT scan of the chest, abdomen, and pelvis with no contrast, which has not demonstrated evidence of noted visceral metastasis, however, does show evidence of diffuse bony metastatic disease in multiple areas of bone scan on 11/21/2017, and noted diffuse metastatic disease to culvarium, cervical, thoracic, lumbar spine as well as throughout the pelvis. Bilateral femoral x-rays demonstrated evidence of diffuse metastasis, no impending fracture based on the reports. PAST MEDICAL HISTORY: Breast cancer as noted above, history of menopause, history of cholecystectomy, oophorectomy, bilateral breast reconstruction, and anxiety. PAST SURGICAL HISTORY: As above. MEDICATIONS: Per [facility]. ALLERGIES: Per [facility]. FAMILY HISTORY: Mother with history of breast cancer at age 60. The patient has not had a genetic evaluation yet. SOCIAL HISTORY: The patient denies any tobacco, alcohol, or drugs. She used to sell CBD. REVIEW OF SYSTEMS: CONSTITUTIONAL: The patient does currently have significant headaches, which has been going on for sometime. GASTROINTESTINAL: The patient has significant nausea. NEUROLOGIC: The patient has had focal weakness and numbness. No focal findings. The patient is able to ambulate somewhat limited due to bone pain. MUSCULOSKELETAL: The patient does have significant hip pain. PHYSICAL EXAMINATION: GENERAL: The patient is a pleasant female, in no acute distress, somewhat depressed. VITAL SIGNS: Temperature of 98.6, blood pressure of 150/83, pulse of 120. HEENT: Sclerae anicteric. CHEST: Clear to auscultation. CARDIAC: Regular rhythm. S1 and S2. ABDOMEN: Soft, nontender, and nondistended. Postsurgical changes noted. EXTREMITIES: No cyanosis. Trace edema in right lower extremity. BREASTS: Bilateral breast reconstruction with some density palpable of the left breast area, however, the patient states that it has been there since her surgery. LABORATORY DATA: Laboratory as well as investigational studies include white count of 9.8, hemoglobin 9.6, MCV of 77, and RDW 10.4 with 75% neutrophils and 14.9% lymphocytes. The patient's phosphorus and magnesium are 1.9 and 1.4. AST and ALT are mildly elevated. Potassium is low at 2.8. Calcium is currently is 8.9 with creatinine of 1.3. The patient's CA 27-29 is noted to be 3157. PTH is currently pending. ASSESSMENT AND PLAN: 1. History of breast cancer, status post bilateral mastectomy and oophorectomy, status post recurrence, currently with severe hypercalcemia and diffuse bony metastases. I have told the patient since her last diagnosis was in 2010, we need to re-establish the diagnosis. In lieu of the fact that the patient mostly does have bony metastatic disease, bone biopsy will be ordered under CT guidance. 2. Headache, severe with associated nausea. The patient is to have brain MRI with and without contrast to rule out metastasis. 3. Severe back pain with some lower extremity weakness and inability to walk due to pain mostly. The patient's neurological exam is intact regardless in lieu of severe metastatic disease throughout. The patient is to have MRI of the cervical, thoracic, lumbar spine. 4. Code status has been discussed with the patient. The patient is Full Code. 5. Lower extremity trace edema, right greater than left. Duplex did not rule out DVT. 6. Microcytosis. Iron and ferritin will be evaluated. 7. . Stool occult blood testing needs to be done to rule out bleed. I provided the patient with my office number as well as form. The patient is to follow up on an outpatient basis. The patient does have brain metastasis. The patient is to be transferred to [facility] for further evaluation. Ottoniel Amador M.D. DR: JOSSUE JOB#: [id number] CC:
--- NOTE | 2017-11-24 08:16 | Geriatric Medicine Prog Note ---
DATE: 11/23/2017 SUBJECTIVE: The patient has hypercalcemia due to Vitamin D intoxication.20, 000u daily. OBJECTIVE: VITAL SIGNS: intact. RESPIRATORY: clear,[facility]. LABORATORY DATA: Calcium of 11.8. ASSESSMENT: 1. Hypercalcemia, improving. 2. Metastatic disease stable PLAN: D/C Vitamin D 20,000 units daily. Calcitonin nasal spray 1 puff in alternating nostrils daily Kai Carrillo M.D. DR: FRANCIS JOB#: [id number] CC: JENNIFER
[2017-11-24 08:22] LABS: BASOPHILS % (AUTO) 0.7 % (0.0-2.0); EOSINOPHILS % (AUTO) 2.9 % (0.0-3.0); HEMATOCRIT 29.8 % (37.0-47.0); HEMOGLOBIN 10.2 G/DL (12.0-16.0); LYMPHOCYTES % (AUTO) 16.4 % (20.0-45.0); MEAN CORPUSCULAR VOLUME 78 FL (80-99); MONOCYTES % (AUTO) 5.4 % (1.0-10.0); NEUTROPHILS % (AUTO) 74.6 % (45.0-75.0); PLATELET COUNT 270 K/UL (150-450); RED CELL DISTRIBUTION WIDTH 10.8 % (11.6-14.8); WHITE BLOOD COUNT 10.2 K/UL (4.8-10.8)
--- NOTE | 2017-11-24 08:42 | Nephrology Progress Note ---
Assessment/Plan Problem List: (1) Renal failure Assessment: acute - resolved (2) Hypercalcemia Assessment: ? Vit D toxicity ? Bone mets (3) Intractable nausea and vomiting (4) Lung nodule Assessment: r/o mets (5) h/o breast cancer s/p double mastectomy, in remission Assessment: BONE SCAN AND CT INDICATIVE OF BONE METS Assessment stable from renal stand Plan labs pending today K and Mag and Phos supplement as needed lower rate of Hydration correct electrolytes waiting PTH and Vit D level monitor Ca Alb Phos Mag Lytes ? DC for OP fu? Subjective ROS Limited/Unobtainable: No Constitutional: Reports: malaise Objective Objective Last 24 Hour Vital Signs Date Time Temp Pulse Resp B/P (MAP) Pulse Ox O2 Delivery O2 Flow Rate FiO2 11/24/17 04:00 98.8 87 19 140/77 (98) 96 98.8 11/24/17 00:00 97.8 84 19 138/80 (99) 98 97.8 11/23/17 21:00 Room Air 11/23/17 20:00 98.2 81 19 147/82 (103) 100 98.2 11/23/17 16:00 98.1 81 18 125/65 (85) 96 98.1 11/23/17 12:00 98.6 92 20 147/80 (102) 97 98.6 11/23/17 09:26 92 132/79 11/23/17 08:45 Room Air Intake and Output 11/23/17 11/24/17 19:00 07:00 Intake Total 1325 ml 770 ml Output Total 4 ml Balance 1325 ml 766 ml IV Total 725 ml 770 ml Other 600 ml Output Urine Total 4 ml # Voids 3 # Bowel Movements 2 1 Laboratory Tests 11/23/17 09:42: Stool Occult Blood Negative 11/24/17 08:00: White Blood Count 10.2, Red Blood Count 3.80L, Hemoglobin 10.2L, Hematocrit 29.8L, Mean Corpuscular Volume 78L, Mean Corpuscular Hemoglobin 26.7L, Mean Corpuscular Hemoglobin Concent 34.1, Red Cell Distribution Width 10.8L, Platelet Count 270, Mean Platelet Volume 6.0L, Neutrophils (%) (Auto) 74.6, Lymphocytes (%) (Auto) 16.4L, Monocytes (%) (Auto) 5.4, Eosinophils (%) (Auto) 2.9, Basophils (%) (Auto) 0.7, Sodium Level [Pending], Potassium Level [Pending] , Chloride Level [Pending], Carbon Dioxide Level [Pending], Blood Urea Nitrogen [Pending], Creatinine [Pending], Estimat Glomerular Filtration Rate [Pending], Glucose Level [Pending], Calcium Level [Pending], Magnesium Level [Pending] 11/24/17 08:30: Prothrombin Time [Pending], Prothromb Time International Ratio [Pending], Activated Partial Thromboplast Time [Pending] Height (Feet): 5 Height (Inches): 2.00 Weight (Pounds): 143 General Appearance: no apparent distress Objective no change Victor Hugo Ozuna MD Nov 24, 2017 08:42
[2017-11-24 08:59] LABS: ANION GAP 13 mmol/L (5-15); BLOOD UREA NITROGEN 11 mg/dL (7-18); CALCIUM 8.5 MG/DL (8.5-10.1); CARBON DIOXIDE 21 MMOL/L (21-32); CHLORIDE 108 MMOL/L (98-107); CREATININE 1.2 MG/DL (0.55-1.30); POTASSIUM 3.6 MMOL/L (3.5-5.1); SODIUM 142 MMOL/L (136-145)
[2017-11-24] MEDS ORDERED: LORazepam Inj 2mg/ml 1ml IV SCH (09:00)
[2017-11-24] MEDS: Heparin 5000 units/ml inj SUBQ SCH (09:00)
[2017-11-24] MEDS: Docusate 100mg cap ORAL SCH ×2 (09:00→12:23)
[2017-11-24] MEDS ORDERED: Tubing IV Secondary IV ONE (10:08)
[2017-11-24] MEDS ORDERED: NS 500ML ONE (10:08)
--- NOTE | 2017-11-24 10:40 | Pre-Procedure Note/Attestation ---
Pre-Procedure Note/Attestation Complete Prior to Procedure Planned Procedure: right Procedure Narrative: CT guided bone biopsy Indications for Procedure Pre-Operative Diagnosis: bone lesions, history of breast cancer Attestation I attest that I discussed the nature of the procedure; its benefits; risks and complications; and alternatives (and the risks and benefits of such alternatives ), prior to the procedure, with the patient (or the patient's legal sales representative uniforms). I attest that I re-evaluated the patient just prior to the surgery and that there has been no change in the patient's H&P, except as documented below: Justice Gonsalez M.D. Nov 24, 2017 10:40
--- NOTE | 2017-11-24 11:26 | Operative Note - PDOC ---
Operative Note Operative Note Date of Operation/Procedure: Nov 24, 2017 Pre-op Diagnosis: bone lesions, history of breast cancer Procedure: ct guided bone biopsy Post-op Diagnosis: same Anesthesia: local Specimen: yes Complications: none Condition: stable Estimated Blood Loss: minimal Drains: none Implant(s) used?: No Indications for Procedure bone lesions concerning fo rmets Description of Procedure successful CT guided bone biopsy of lesion in right posterior iliac bone. 18- gauge core biopsy x 2 Justice Gonsalez M.D. Nov 24, 2017 11:26
--- NOTE | 2017-11-24 11:36 | Diagnostic Imaging Report ---
Indication: Multiple bone lesions concerning for metastatic disease. History of cancer. Referred for CT-guided bone biopsy. CT dose: Total DLP 1128 mGycm; CTDI vol 0.2, 16.8, 17.7, 17.5, 17.5, 17.1, 17.7 mGy Automated exposure control utilized for dose reduction Comparison: CT of the abdomen and pelvis 11/20/2017 Estimated blood loss: Minimal (less than 3 cc) Medications: 1% local anesthetic TECHNIQUE AND FINDINGS: Patient positioned prone on the CT table. Preprocedure timeout performed. Scanning Limited CT of the pelvis was performed with a grid marker to localize a site for biopsy. Appropriate site was chosen and local anesthetic 1% lidocaine. A small dermatotomy was made. Next, a 17-gauge guiding needle was advanced to the periphery of the targeted right posterior iliac lesion, confirmed under CT. Next, a 18-gauge biopsy needle was advanced coaxially via the guiding needle and a total of 2 18-gauge core biopsy specimens were obtained and placed in formalin for some additional pathology. CT was obtained with the needle fired, confirming biopsy through the targeted right posterior iliac lesion. Biopsy needle and guide needle were removed and hemostasis easily achieved with manual compression. A sterile dressing was applied. Completion CT was performed demonstrating no significant hematoma postbiopsy. Multiple bone lesions throughout the pelvis are again noted, consistent with findings of prior imaging. The patient tolerated the procedure well and left the department stable condition. IMPRESSION: Technically successful CT-guided core needle biopsy of right posterior iliac bone lesion as detailed above. Specimen submitted in formalin to pathology. The CT scanner at [facility] is accredited by the [employer] and the scans are performed using protocols designed to limit radiation exposure to as low as reasonably achievable to attain images of sufficient resolution adequate for diagnostic evaluation.
[2017-11-24 11:58] VITALS: BP 134/79
--- NOTE | 2017-11-24 14:00 | General Surgery Progress Note ---
General Surgery-Progress Note Subjective Additional Comments MRI noted. CT guided bone biopsy noted. Objective Last 24 Hour Vital Signs Date Time Temp Pulse Resp B/P (MAP) Pulse Ox O2 Delivery O2 Flow Rate FiO2 11/24/17 11:58 134/79 (97) 98 11/24/17 11:57 99.4 89 19 98 99.4 11/24/17 09:11 94 150/85 11/24/17 09:00 Room Air 11/24/17 08:00 99.2 94 19 150/85 (106) 93 99.2 11/24/17 04:00 98.8 87 19 140/77 (98) 96 98.8 11/24/17 00:00 97.8 84 19 138/80 (99) 98 97.8 11/23/17 21:00 Room Air 11/23/17 20:00 98.2 81 19 147/82 (103) 100 98.2 11/23/17 16:00 98.1 81 18 125/65 (85) 96 98.1 I&O Intake and Output 11/23/17 11/24/17 19:00 07:00 Intake Total 1325 ml 770 ml Output Total 4 ml Balance 1325 ml 766 ml IV Total 725 ml 770 ml Other 600 ml Output Urine Total 4 ml # Voids 3 # Bowel Movements 2 1 Wound: clean Drains: none Cardiovascular: RSR Respiratory: clear Abdomen: soft, flat, non-tender, present bowel sounds Extremities: no cyanosis Laboratory Tests Test 11/24/17 08:00 11/24/17 08:30 11/24/17 10:05 White Blood Count 10.2 K/UL (4.8-10.8) Red Blood Count 3.80 M/UL (4.20-5.40) L Hemoglobin 10.2 G/DL (12.0-16.0) L Hematocrit 29.8 % (37.0-47.0) L Mean Corpuscular Volume 78 FL (80-99) L Mean Corpuscular Hemoglobin 26.7 PG (27.0-31.0) L Mean Corpuscular Hemoglobin Concent 34.1 G/DL (32.0-36.0) Red Cell Distribution Width 10.8 % (11.6-14.8) L Platelet Count 270 K/UL (150-450) Mean Platelet Volume 6.0 FL (6.5-10.1) L Neutrophils (%) (Auto) 74.6 % (45.0-75.0) Lymphocytes (%) (Auto) 16.4 % (20.0-45.0) L Monocytes (%) (Auto) 5.4 % (1.0-10.0) Eosinophils (%) (Auto) 2.9 % (0.0-3.0) Basophils (%) (Auto) 0.7 % (0.0-2.0) Sodium Level 142 MMOL/L (136-145) Potassium Level 3.6 MMOL/L (3.5-5.1) Chloride Level 108 MMOL/L (98-107) H Carbon Dioxide Level 21 MMOL/L (21-32) Anion Gap 13 mmol/L (5-15) Blood Urea Nitrogen 11 mg/dL (7-18) Creatinine 1.2 MG/DL (0.55-1.30) Estimat Glomerular Filtration Rate 45.5 mL/min (>60) Glucose Level 105 MG/DL (74-106) Calcium Level 8.5 MG/DL (8.5-10.1) Magnesium Level 2.2 MG/DL (1.8-2.4) Prothrombin Time 9.9 SEC (9.30-11.50) Prothromb Time International Ratio 1.0 (0.9-1.1) Activated Partial Thromboplast Time 21 SEC (23-33) L Stool Occult Blood Negative (NEGATIVE) Plan Problems: (1) Intractable nausea and vomiting Assessment & Plan: likely related to hypercalcemia and unlikely obstructive KUB reviewed. okay okay for diet (2) Hypercalcemia Assessment & Plan: likely primary hypercalcemia. etiology work up -pending remaining labs -will follow as information available -fluids, Rx as written -CT reviewed -bone scan reviewed - Numerous foci of increased uptake throughout the primarily axial skeleton, as described. Findings are consistent with multiple osseous metastases MRI noted CT guided bone biopsy performed -?oncology input. ?multiple myeloma -okay for diet thank you for this consultation will follow with you Elfego Webb Nov 24, 2017 13:59
[2017-11-24] MEDS ORDERED: XANAX1 MG ORAL (17:15)
[2017-11-24] MEDS ORDERED: NORCO 5-325 TA1 EACH ORAL (17:16)
--- NOTE | 2017-12-01 08:28 | Discharge Summary ---
Discharge Summary Hospital Course Date of Admission Nov 18, 2017 at 19:24 Date of Discharge Nov 24, 2017 at 18:32 Admitting Diagnosis INTERACTABLE VOMITING CASSIDY Barrios is a 62 year old female who was admitted on Nov 18, 2017 at 19:24 for Intractable Vomiting This is a 62 y/o female with a PMH of breast cancer s/p double mastectomy now in remission presented to [facility] for intractable nausea and vomiting for 2 days. Patient states that she has been having NBNB emesis for 2 days with associated fevers and chills. Denies abdominal pain, diarrhea or constipation. Does not recall eating anything out of the norm. Patient also reports R hip pain , where a recent MRI was done but results are unknown to them. Patient states that she has had progressively difficulty walking for the last 1 month and now completely unable to ambulate for the last 2 days. In the ED, patient was noted to be severely hypercalcemic at 17, hyperphosphatemia and hypermagnesemia. Patient's ionized Ca was also noted to be elevated and patient was given a dose of pamidronate. Patient was also noted to have a Cr of 3 and patient was started on IVF. Patient was noted to have a UTI and patient was given IV ceftriaxone. Patient was further admitted. At this time, patient denies any chest pain, sob. Continues to report nausea but no vomiting or abdominal pain today. Denies d/c, f/c. Continues to report inability to walk. Consultations - Endocrinology - nephrology - general surgery - Oncology - Pulmonology Procedures CT-guided needle biopsy Hospital Course Patient was admitted for hypercalcemia and generalized weakness. Nephrology was consulted and patient was given pamidronate and started on calcitonin. Calcium slowly trended down and normalized. Cr was also elevated and nephrology was consulted. Renal ultrasound was normal and patient was given IVF. Patient's Cr slowly improved and normalized. On CXR, patient was noted to have 12 mm left lung nodule and general surgery and oncology were consulted. Given also hip pain , patient underwent a full workup including CT a/p/chest w/o contrast, CT c/t/l spine, XR hip and femur, NM bone scan, and MRI brain. All showed diffuse bony metastatic disease. MRI brain showed skull lesions but no metastasis in the intracerebellar region. Patient also had serum light chains, spep, upep, CEA, CA 15-3, CA 27-29, MIGUEL test done, which are pending. Patient underwent a CT- guided biopsy of the pelvic bone, with results that are pending as well. Given no metastasis within the brain, patient was cleared for discharge per oncology to follow up with Dr. Amador as outpatient within 1 week. Patient's strength improved with normalization of the calcium. Patient was therefore hemodynamically stable for discharge and patient was advised to follow up with oncologist within 1 week. Discharge Medications Continued Medications: Alprazolam* (Xanax*) 1 Mg Tablet 1 TAB ORAL Q12HR, #30 TAB 0 Refills (This prescription has been renewed) Hydrocodone Bit/Acetaminophen 5-325* ([place] 5-325*) 1 Each Tablet 1 TAB ORAL Q6H PRN for For Pain, #10 TAB 0 Refills (This prescription has been renewed) Magnesium Oxide (Magnesium) 500 Mg Capsule 500 MG PO, CAP (This prescription has been renewed) Ubidecarenone (Coq-10) 30 Mg Capsule Unknown Dose PO, CAP (This prescription has been renewed) Discharge Condition Upon Discharge: stable Discharge Disposition Patient was discharged to Home (01) with home health Discharge Diagnoses: (1) Bone metastases (2) Hypercalcemia (3) Intractable nausea and vomiting (4) Bone pain (5) Hyperphosphatemia (6) Leukocytosis (7) UTI (urinary tract infection) (8) h/o breast cancer s/p double mastectomy, in remission (9) Generalized weakness (10) Lung nodule (11) Breast cancer Beckie Tavera NP Dec 01, 2017 08:28
== END 2017-11-24 18:32 | disposition home or self-care (01) | DRG 477 ==
LOC: EMR 19:23 → 4E 19:24 → EDBEDREQ 20:27 → 4E 22:43
PROC: 0QB23ZX Excision of Right Pelvic Bone, Percutaneous Approach, Diagnostic (ICD-10-PCS; principal; 2017-11-24)
DX: C79.51 Secondary malignant neoplasm of bone (principal); N17.0 Acute kidney failure with tubular necrosis; N39.0 Urinary tract infection, site not specified; E83.52 Hypercalcemia; R11.2 Nausea with vomiting, unspecified; Z85.3 Personal history of malignant neoplasm of breast; Z90.13 Acquired absence of bilateral breasts and nipples; Z88.6 Allergy status to analgesic agent; Z88.8 Allergy status to other drugs, medicaments and biological substances; R91.1 Solitary pulmonary nodule; E83.39 Other disorders of phosphorus metabolism; Z80.3 Family history of malignant neoplasm of breast; R53.1 Weakness; M25.551 Pain in right hip; R26.2 Difficulty in walking, not elsewhere classified; M54.9 Dorsalgia, unspecified; E83.41 Hypermagnesemia
CPT/HCPCS: 36415; 70553; 71045; 71250; 72141; 72146; 72148; 73521; 74018; 74176; 76770; 77012; 78306; 80048; 80053; 81003; 81050; 82164; 82270; 82306; 82330; 82378; 82728; 82977; 83519; 83540; 83550; 83690; 83735; 83883; 83970; 84100; 84165; 84550; 85007; 85025; 85610; 85730; 86300; 86301; 86635; 87086; 93005; 99285; A9585; J2405; J2430; J8499